=== PATIENT | male | born 1955 | race Caucasian/White ===

== ENCOUNTER → 2018-06-09 09:09 | Outpatient (CLI) | payer OTHER, SELFPAY ==
--- NOTE | 2018-06-09 09:15 | MRI_ITS ---
STUDY: MRI BRAIN WITH AND WITHOUT CONTRAST (ATTENTION INTERNAL AUDITORY CANALS - I.A.C.'s) REASON FOR EXAM: Male, 62 years old. lt tinnitus, dizzy, hearing loss. TECHNIQUE: Standardized multiplanar fat and water weighted pulse sequences were obtained. 10 ml of Gadavist contrast material was administered intravenously for the contrast portion of the examination. COMPARISON: None. FINDINGS: There is fluid signal at the left mastoid. Normal bilateral internal auditory canals. There is no demonstrated intracanalicular or cisternal vestibular schwannoma (acoustic neuroma). There is no enhancement of the bilateral VIIth or VIIIth cranial nerves. Normal bilateral cochlea, vestibules and semicircular canals. Normal size of the ventricles and extra-axial spaces for the patient's age. There are a limited number of small white matter hyperintensities, distributed throughout the deep white matter tracts of the cerebral hemispheres, consistent with mild chronic white matter ischemic changes. Normal bilateral basal ganglia. Normal thalami. Normal flow voids within the major intracranial circulation suggesting patency by spin echo criteria. Normal venous enhancement. There is no enhancing intra-axial or extra-axial abnormality. There is no extra-axial fluid accumulation. Normal sella turcica, pituitary gland, infundibular stalk, optic chiasm and hypothalamus. Normal tectal plate and pineal gland. Normal midbrain, alayna and medulla. Normal cerebellum. Normal basal cisterns. No demonstrated orbital abnormality, within the constraints of a routine brain study. Normal visualized paranasal sinuses. Normal calvarium and skull base. Normal visualized soft tissue structures. Normal visualized upper cervical spine. MRI/Brain W/WO Contrast IMPRESSION: There is no demonstrated intracanalicular or cisternal vestibular schwannoma (acoustic neuroma). Left mastoid disease. Electronically Signed: Shama Tsang MD at 8:54 EST Tel , Service support ,
[2018-06-09 09:50] LABS: CREATININE FINGERSTICK 1.2 mg/dL (0.70-1.30); EGFR FINGERSTICK > 60.0000 mL/min (>60)
== END ==
PROVIDERS: Family Provider Internal Medicine; PCP Internal Medicine; Referring Provider Otolaryngology Otolaryngology/Facial Plastic Surgery; Visit Provider Otolaryngology Otolaryngology/Facial Plastic Surgery
DX: H93.12 Tinnitus, left ear (principal)
CPT/HCPCS: 70553; A9585

== ENCOUNTER 2019-09-05 02:39 | Inpatient (IN) | payer MEDICARE, SELFPAY ==
[2019-09-05] VITALS (9 sets, daily range): BP systolic 130–193; BP diastolic 79–153; PULSE 79–99; RESP 17–20; TEMP 36.3–37.1; O2SAT 94–99; BMI 37.3; BMI 34.0
--- NOTE | 2019-09-05 02:42 | CT_ITS ---
STUDY: CT ABDOMEN AND PELVIS WITHOUT CONTRAST REASON FOR EXAM: Male, 63 years old patient with all over abdominal pain, nausea and vomiting for couple of hours. Past medical history of horseshoe kidney. RADIATION DOSAGE (If Supplied By Facility): CTDIvol = ( 19.27 ) mGy, DLP = ( 1049.33 ) mGycm TECHNIQUE: Transaxial images were obtained from the dome of the diaphragm to the symphysis pubis without oral contrast, and without intravenous contrast. Sagittal and coronal images were reconstructed. Individualized dose optimization techniques were used for this CT. COMPARISON: CT of the abdomen and pelvis dated January 28, 2017. FINDINGS: There is a curvilinear opacity of the left lung base that may represent pulmonary fibrosis is a similar appearance was present on the previous CT. The visualized portions of the heart are within normal limits. There are coronary artery vascular calcifications. There is decreased attenuation of the liver consistent with steatosis. There are multiple gallstones. Normal spleen. There is diffuse enlargement of the pancreas with patrice-pancreatic edema suggesting acute pancreatitis. Normal bilateral adrenal glands. Patient has a horseshoe kidney. There is a small parenchymal calcification measuring about 3 mm in size. There is no evidence for hydronephrosis, hydroureter or radiopaque ureteral calculus. There is a small hiatal hernia. There is no evidence for dilated bowel, ascites or pneumoperitoneum. Small bowel has a grossly normal appearance. The descending colon is not distended which gives the appearance of thickened leonard. Stool is visible within the ascending colon and transverse colon. The appendix is visualized and appears normal. There is abnormal heterogeneous increased but less attenuation within the central mesentery unchanged since the previous study. The abdominal aorta is mildly tortuous. Normal inferior vena cava. Normal retroperitoneum. Normal urinary bladder. There are prostatic calcifications. There is a small umbilical hernia containing fat. There are diffuse degenerative changes of the visualized spine. CT/Abdomen/Pelvis without Cont IMPRESSION: 1. CT finding suggests sequela of acute pancreatitis. 2. Cholelithiasis. 3. 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 4. Hepatic steatosis. Electronically Signed: Cristal Duff MD at 3:41 EDT , Service support ,
--- NOTE | 2019-09-05 02:45 | ED.DCSUM_ITS ---
History of Present Illness Chief Complaint: Abd Pain Narrative: Patient presenting due to abdominal pain, nausea, and vomiting. The patient has a past history of hernia surgery, hiatal hernia, and lysis of adhesions surgery. He states that he developed abdominal pain at 2300. This is associated with epigastric sharp pain with non-bloody, and non-bilious, and non feculent emesis. He states that there are no exacerbating or relieving factors. There have been no fevers or diarrhea associated with this. He states that he has been having some sweating with his vomiting. No chest pain. ROS is otherwise negative. Past Medical History - Allergies and Home Meds Allergies/Adverse Reactions: Allergies Acsarwv-Kqy-Yev Reductase Inhibitor Adverse Reaction (Verified 09/05/19 02:43) Other Primary Care Physician: Fidel Cronin MD [Primary Care Provider] - Past Medical History: - - CAT, HTN, DM, HL, BPH Surgical History: no surgical history Smoking Status: Former smoker - Family History Paternal Family History: Reports: Heart Disease - His father had [place] at age 55. Review of Systems All systems negative except as indicated General: Denies: Chills, Fever, Sweats Eyes: Denies: Visual changes - bilaterally, Diplopia ENT: Denies: Rhinorrhea, Sore throat Cardiovascular: Denies: Chest pain, Palpitations Respiratory: Denies: Dyspnea, Cough, Dyspnea on exertion Gastrointestinal: Reports: Abdominal pain, Nausea, Vomiting Genitourinary: Denies: Dysuria, Hematuria, Frequency Musculoskeletal: Denies: Back pain, Extremity Pain Skin: Denies: Rash, Wounds Neurological: Denies: Headache, Weakness, Numbness Physical Exam Vital Signs/Narrative: Vital Signs Temp Pulse Resp BP Pulse Ox 09/05/19 02:39 98.0 F 79 18 193/153 H 95 General: Well nourished, Well developed, Acute Distress Head: Normocephalic, Atraumatic Eyes: Perrl, EOMI ENT: Moist mucous membranes, No rhinorrhea Neck: Supple, Nontender Cardiovascular: Regular rate, Regular rhythm, No murmurs Respiratory: No distress, CTA bilaterally, Chest nontender Abdomen: Tender, Guarding, - - moderate distention. Negative for: Pulsatile mass Extremities: Nontender, No edema Skin: Diaphoresis Neurological: Alert, Oriented x3, Cranial nerves II-XII grossly intact, Normal Strength, Normal Sensation Psychological: Normal affect, Normal Mood Diagnostic/Tx/Re-eval Clinical Impression(s) from Imaging Studies Abdomen/Pelvis CT 09/05/19 02:42 IMPRESSION: 1. CT finding suggests sequela of acute pancreatitis. 2. Cholelithiasis. 3. 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 4. Hepatic steatosis. Electronically Signed: Cristal Duff MD at 3:41 EDT , Service support , Laboratory Data 09/05/19 09/05/19 09/05/19 02:50 02:50 02:50 WBC 22.6 H RBC 5.44 Hgb 15.7 Hct 47.9 MCV 88.1 MCH 28.9 MCHC 32.8 RDW Std Deviation 42.5 RDW Coeff of Mirian 13.3 Plt Count 235 MPV 10.7 Immature Gran % (Auto) 0.500 Neut % (Auto) 85.3 H Lymph % (Auto) 6.[address] [place] % (Auto) 6.9 Eos % (Auto) 0.1 Baso % (Auto) 0.3 Absolute Neuts (auto) 19.3 H Absolute Lymphs (auto) 1.56 Nucleated RBC % 0 Differential Comment Diff Path Review May foll Sodium 143 Potassium 3.7 Chloride 107 Carbon Dioxide 28.0 Anion Gap 8 BUN 17 Creatinine 1.11 Estim Creat Clear Calc 70.66 Est GFR (MDRD) Af Amer 85 Est GFR (MDRD) Non-Af 71 BUN/Creatinine Ratio 15.3 Glucose 180 H Lactic Acid 2.8 H* Calcium 8.5 Total Bilirubin 0.80 AST 109 H ALT 115 H Alkaline Phosphatase 91 Total Protein 7.0 Albumin 3.8 Globulin 3.2 Albumin/Globulin Ratio 1.2 Lipase 17256 H - Medical Decision Making Patient presented for evaluation secondary to abdominal pain. Differential considerations include gastric volvulus, perforated ulcer, bowel obstruction, pancreatitis, gallbladder disease, or other surgical pathology given the patient's abdominal rigidity pain and vomiting. Patient was given Dilaudid Zofran and fluids. He did have some improvement of his pain. CBC demonstrates leukocytosis, chemistry panel shows mild elevation of the patient's lactic acid and profound elevation of the patient's lipase into the 20,000 range. Patient has a modest bump in his transaminases, but does not seem to have elevation of bilirubin so I do not feel that this is a presentation of gallstone pancreatitis. CT abdomen and pelvis demonstrates pancreatitis with gallstones. I further question the patient about alcohol usage, he states that he really only drinks a glass of wine per night. Patient did report that within the last month he has been placed on metformin. He denies any recent viral illnesses. Patient was started on fluid resuscitation. I believe the patient requires admission this will be discussed with the hospitalist. ED Disposition - Plan for ED Patient: Disposition: Acute Care Hospital [facility] Diagnosis: Pancreatitis, acute
[2019-09-05] MEDS: HYDROmorphone 1 MG/ML Syringe IV ×10 (02:48→23:16)
[2019-09-05] MEDS: Ondansetron 4 MG/2 ML Vial IV ×4 (02:48→21:15)
[2019-09-05] MEDS: 0.9% Normal Saline 1,000 ML 1000 ML IV (02:49)
[2019-09-05 03:16] LABS: Absolute Lymphocyte Count 1.56 X10^3/uL (0.83-4.51); Absolute Neutrophil Count 19.3 X10^3/uL (2.0-7.7); Basophil# 0.07 X10^3/uL; Basophil% 0.3 % (0-1); Eosinophil# 0.02 X10^3/uL; Eosinophils% 0.1 % (0-5); Hematocrit 47.9 % (40-54); Hemoglobin 15.7 g/dL (13.0-16.5); Lymphocyte # 1.56 X10^3/ul (4.0); Lymphocyte % 6.9 % (19-41); Mean Corp Hgb Conc 32.8 g/dL (32-36); Mean Corpuscular Hgb 28.9 pg (27.0-32.0); Mean Corpuscular Volume 88.1 fL (80-94); Mean Platelet Vol. 10.7 fl (6.2-12.0); Monocyte# 1.57 X10^3/uL; Monocyte% 6.9 % (0-10); NRBC Flagged by Analyzer 0 % (0-5); Neutrophil % 85.3 % (47-70); POSITIVE DIFFERENTIAL YES; Platelet Count 235 K/mm3 (150-450); RBC Distribution Width CV 13.3 % (11.6-14.6); RBC Distribution Width SD 42.5 fl (35.1-43.9); Red Blood Count 5.44 M/mm3 (4.6-6.2); White Blood Count 22.6 K/mm3 (4.4-11.0)
[2019-09-05 03:22] LABS: Differential Indicated SCAN CRITERIA MET
[2019-09-05 03:26] LABS: ALB/GLOB Ratio 1.2 RATIO (0.9-2.4); AST(SGOT) 109 U/L (15-37); Alanine Aminotransfer ALT/SGPT 115 U/L (16-61); Albumin, Serum 3.8 g/dL (3.2-5.0); Alkaline Phosphatase 91 U/L (45-117); Anion Gap 8 (5-15); BUN 17 mg/dL (7-18); BUN/Creat Ratio 15.3 RATIO (10-20); Calcium,Total 8.5 mg/dL (8.5-10.1); Chloride 107 mmol/L (98-107); Creatinine, Serum 1.11 mg/dL (0.70-1.30); EST Glomerular Filtration Rate 71 mL/min (>60); Est Glom Filt Rate - Afr Amer 85 mL/min (>60); Estimated Creatinine Clearance 70.66 ml/min; Globulin 3.2 g/dL (2.2-4.2); Glucose 180 mg/dL (74-106); Lactic Acid 2.8 mmol/L (0.4-1.9); Potassium 3.7 mmol/L (3.5-5.1); Sodium Level 143 mmol/L (136-145)
[2019-09-05] MEDS: Lactated Ringers 1,000 ML 250 ML IV (04:11)
--- NOTE | 2019-09-05 04:34 | HP.PCM_ITS ---
Problem List (1) Pancreatitis, acute Status: Acute (2) Hyperlipidemia Status: Chronic (3) History of myocardial infarct at age less than 60 years Status: Chronic History of Present Illness Date of Admission: 09/05/19 Chief Complaint: abdominal pain The patient is a 63 year old male patient with a past medical history of coronary artery disease and hyperlipidemia presents the emergency room with acute onset of abdominal pain. The pain began last night approximately 11:00 PM and is 10/10 in nature described as epigastric or right upper quadrant pain. The pain is associated with nausea. The patient denies chest pain shortness of breath or fever or cough. CT scan reveals inflamed pancreas with multiple gallstones but no obstruction, and incidental finding of horseshoe kidney. Laboratory results are significant for lipase elevated at 20,190. The patient admits to drinking a glass of wine daily. At this time patient will be admitted to general medical floor and treated for pancreatitis Past Medical History Past Medical History (Chronic Problems): Chronic Problems Hyperlipidemia (Chronic) Coronary artery disease (Chronic) History of myocardial infarct at age less than 60 years (Chronic) Allergies Zuvkotk-Ckz-Yjc Reductase Inhibitor Adverse Reaction (Verified 09/05/19 02:43) Other Home Medications: Ambulatory Orders Medication Instructions Recorded Aspirin [Aspirin, Baby] 81 mg PO DAILY@0800 08/17/15 Metoprolol Tartrate [Lopressor 12.5 mg PO BID 08/17/15 (Beta Lory)] Omeprazole [Prilosec] 40 mg PO DAILY 08/17/15 Pitavastatin Calcium [Livalo] 1 mg PO DAILY 08/17/15 Tamsulosin HCl [Flomax] 0.4 mg PO DAILY 08/17/15 Fluticasone 0.05% [Flonase Nasal 2 spray NASAL DAILY 01/28/17 [place]] Loratadine/Pseudo 240/10 1 tablet PO DAILY 01/28/17 [Claritin-D 24 Hr] Nitroglycerin [Nitrostat] 0.3 mg SL PRN PRN 01/28/17 Clopidogrel Bisulfate [Plavix] 75 mg PO DAILY 09/05/19 Ezetimibe [Zetia] 10 mg PO DAILY 09/05/19 Metformin HCl 500 mg PO DAILY 09/05/19 Surgical History: no surgical history Psychiatric History: No pertinent psych hx Smoking Status: Former smoker - *Family History Paternal History Items: Heart Disease - His father had [place] at age 55. Review of Systems Constitutional: Denies: Chills, Fever, Weight Change HEENT: Denies: Head Aches, Sinus Congestion, Sinus Drainage Cardiovascular: Denies: Chest Pain, Palpitations Respiratory: Denies: Cough, Shortness of breath at rest, Sputum production Gastrointestinal: Reports: Abdominal Pain, Nausea. Denies: Vomiting Genitourinary: Denies: Dysuria Musculoskeletal: Denies: Joint Pain, Joint Tenderness Skin: Denies: Rash, Wounds Neurological: Denies: Numbness, Tingling, Focal weakness Psychiatric: Denies: Anxiety, Depression, Homicidal Ideations, Suicidal Ideations Hematologic/ Lymphatic: Denies: Easy Bruising, Easy Bleeding VTE Information - Inpt Only VTE Present on Admission: No VTE Mechan Device Prophylaxis: None VTE Pharm Prophylaxis ordered?: Yes Patient Problems: Active and Suspected Problems Pancreatitis, acute (Acute) - Physical Exam Vitals/I&O's: Vital Signs Temp Pulse Resp BP Pulse Ox 97.4 F L 89 18 141/98 H 99 09/05/19 04:31 09/05/19 04:31 09/05/19 04:31 09/05/19 04:31 09/05/19 04:31 Oxygen Delivery Method Room Air Weight: 267 lb 3.204 oz Body Mass Index (BMI) 37.3 General: Alert, Oriented x3, Cooperative HEENT: Atraumatic, Normocephalic Neck: Supple Lungs: Clear to auscultation, Normal air movement Cardiovascular: Regular rate, Regular Rhythm, Normal S1, Normal S2, No murmurs Abdomen: Bowel Sounds Present, Distended, Obese, Guarding Extremities: No edema, Capillary Refill Less than 3 Seconds Skin: No rashes Musculoskeletal: No Tenderness to Palpation of Joints or Extremities Neurological: Cranial nerves II-XII grossly intact Psych/Mental Status: Normal Affect, Appropriate Laboratory Results 09/05/19 02:50: WBC 22.6 H, RBC 5.44, Hgb 15.7, Hct 47.9, MCV 88.1, MCH 28.9, MCHC 32.8, RDW Std Deviation 42.5, RDW Coeff of Mirian 13.3, Plt Count 235, MPV 1 0.7, Immature Gran % (Auto) 0.500, Neut % (Auto) 85.3 H, Lymph % (Auto) 6.9 L, [place] % (Auto) 6.9, Eos % (Auto) 0.1, Baso % (Auto) 0.3, Absolute Neuts (auto) 19.3 H, Absolute Lymphs (auto) 1.56, Nucleated RBC % 0, Differential Comment , Diff Path Review September09/05/19 02:50: Sodium 143, Potassium 3.7, Chloride 107, Carbon Dioxide 28.0, Anion Gap 8, BUN 17, Creatinine 1.11, Estim Creat Clear Calc 70.66, Est GFR (MDRD) Af Amer 85, Est GFR (MDRD) Non-Af 71, BUN/Creatinine Ratio 15.3, Glucose 180 H, Calcium 8.5, Total Bilirubin 0.80, AST 109 H, ALT 115 H, Alkaline Phosphatase 91, Total Protein 7.0, Albumin 3.8, Globulin 3.2, Albumin/Globulin Ratio 1.2, Lipase 37636 H 09/05/19 02:50: Lactic Acid 2.8 H* Current Medications Lactated Ringer's () 1,000 mls @ 250 mls/hr IV .Q4H ADELAIDA Assessment/Plan All Active Problems Pancreatitis, acute (Acute) Chest pain (Acute) Chronic Problems Hyperlipidemia (Chronic) Coronary artery disease (Chronic) History of myocardial infarct at age less than 60 years (Chronic) Plan 1. Acute pancreatitis?admit patient to general medical floor, make n.p.o., Dilaudid 1 mg IV every 2 hours as needed, IV normal saline at 125 cc/h, repeat lipase and CMP in 12 hours. We will add Zofran as needed for nausea 2. Hyperlipidemia?patient unable to take statins will hold p.o. medications at this time for pancreatitis. 3. DVT prophylaxis?low molecular weight heparin Inpatient E&M: [id number] Init Hosp L3
[2019-09-05] MEDS: 0.9% Normal Saline 1,000 ML 125 ML IV (05:17)
[2019-09-05 06:55] LABS: Reflex Lactate? Y
[2019-09-05 07:53] LABS: Lactic Acid 3.3 mmol/L (0.4-1.9)
--- NOTE | 2019-09-05 08:25 | US_ITS ---
STUDY: ABDOMINAL ULTRASOUND - RIGHT UPPER QUADRANT REASON FOR VISIT: Male, 63 years old abd pain -- abn ct TECHNIQUE: Ultrasound evaluation of the right upper quadrant was performed with real-time and static jacome-scale imaging. TECHNICAL QUALITY: Limited. Examination limited by bowel gas. COMPARISON: Comparison is made with prior CT scan of the abdomen and pelvis dated September 05, 2019 at 3:03 AM. FINDINGS: Liver: The liver measures 15.3 cm. There is increased echogenicity consistent with fatty infiltration. The bile ducts are within normal limits. There is hepatic color flow. The direction of portal flow is hepatopetal. There is no demonstrated mass lesion. Gallbladder: Normal distended gallbladder. The gallbladder wall measures 2.0 mm. There is a negative sonographic Rodriguez''s sign. There is no pericholecystic fluid. There are multiple echogenic structures within the gallbladder, consistent with multiple gallstones. Common Bile Duct (C.B.D.): The common bile duct measures 5.2 mm. Pancreas: There is nonvisualization of the pancreas due to overlying bowel gas. Right Kidney: Normal size of the right kidney. The right kidney measures 12.3 cm x 5.3 cm x 4.8 cm. Normal renal cortex. The right cortex measures 1.4 cm. There is no demonstrated renal mass or cyst. There is no right hydronephrosis. US/Abdomen Limited IMPRESSION: Fatty infiltration of the liver. Multiple gallstones. Electronically Signed: Balwinder Clemens, at 10:13 EDT , Service support ,
[2019-09-05] MEDS: 0.9% Saline Lock 10 ML Syringe IV ×2 (09:15→21:15)
[2019-09-05 09:26] LABS: Cholesterol 231 mg/dL (200); High Density Lipoprotein 37 mg/dL; Triglycerides 152 mg/dL; Very Low Density Lipoprotein 30 mg/dL (5-40)
--- NOTE | 2019-09-05 10:41 | PCM.PN.HOSP ---
<Vick Villalobos - Last Filed: 09/05/19 10:41> Patient Problems: Active and Suspected Problems Pancreatitis, acute (Acute) Reason for Visit: Abdominal pain Subjective: minimal improvement in abd pain. no n/v currently. No fever/chills. No cough/sob. Vitals/I&O's: Vital Signs Temp Pulse Resp BP Pulse Ox 97.9 F 90 17 135/81 H 96 09/05/19 05:00 09/05/19 05:00 09/05/19 05:00 09/05/19 05:00 09/05/19 07:50 Oxygen Delivery Method Room Air Weight: 244 lb 4.355 oz Body Mass Index (BMI) 34.0 Intake and Output for Last 24 Hours 09/03/19 09/04/19 09/05/19 23:59 23:59 23:59 Intake Total 1806.25 / 1806.25 Output Total 250 / 250 Balance 1556.25 / 1556.25 General: Alert, Oriented x3, Cooperative HEENT: Atraumatic, PERRLA, EOMI, Normocephalic Neck: Supple, No JVD, Negative Carotid Bruits Lungs: Clear to auscultation, Normal air movement Cardiovascular: Regular rate, No murmurs Abdomen: Soft, Hypoactive Bowel Sounds, Tender Extremities: No edema, Capillary Refill Less than 3 Seconds Skin: No rashes, No breakdown Musculoskeletal: No Tenderness to Palpation of Joints or Extremities Neurological: Cranial nerves II-XII grossly intact Psych/Mental Status: Normal Affect, Appropriate, Alert and oriented to time, place, person, mood and affect Laboratory Results 09/05/19 02:50: WBC 22.6 H, RBC 5.44, Hgb 15.7, Hct 47.9, MCV 88.1, MCH 28.9, MCHC 32.8, RDW Std Deviation 42.5, RDW Coeff of Mirian 13.3, Plt Count 235, MPV 10.7, Immature Gran % (Auto) 0.500, Neut % (Auto) 85.3 H, Lymph % (Auto) 6.9 L, [place] % (Auto) 6.9, Eos % (Auto) 0.1, Baso % (Auto) 0.3, Absolute Neuts (auto) 19.3 H, Absolute Lymphs (auto) 1.56, Nucleated RBC % 0, Differential Comment , Diff Path Review September foll 09/05/19 02:50: Sodium 143, Potassium 3.7, Chloride 107, Carbon Dioxide 28.0, Anion Gap 8, BUN 17, Creatinine 1.11, Estim Creat Clear Calc 70.66, Est GFR (MDRD) Af Amer 85, Est GFR (MDRD) Non-Af 71, BUN/Creatinine Ratio 15.3, Glucose 180 H, Calcium 8.5, Total Bilirubin 0.80, AST 109 H, ALT 115 H, Alkaline Phosphatase 91, Total Protein 7.0, Albumin 3.8, Globulin 3.2, Albumin/Globulin Ratio 1.2, Lipase 43693 H 09/05/19 02:50: Lactic Acid 2.8 H* 09/05/19 02:55: Triglycerides 152, Cholesterol 231 H, LDL Cholesterol 164 H, VLDL Cholesterol 30, HDL Cholesterol 37 L 09/05/19 07:04: Lactic Acid 3.3 H* Current Medications Dicyclomine HCl (Bentyl) 20 mg PO Q6H PRN PRN PRN Reason: abdominal discomfort Enoxaparin Sodium (Lovenox) 40 mg SC DAILY [facility] Folic Acid (Folic Acid) 1 mg PO DAILY@0800 [facility] Gabapentin (Neurontin) 300 mg PO Q8H PRN PRN PRN Reason: moderate to severe anxiety Hydromorphone HCl (Dilaudid Inj) 1 mg IV Q2H PRN PRN PRN Reason: Pain Score 4-10/10 Last Admin: 09/05/19 09:14 Dose: 1 mg Documented by: Hydroxyzine Pamoate (Vistaril Pamoate Capsule) 50 mg PO Q4H PRN PRN PRN Reason: mild anxiety Sodium Chloride () 1,000 mls @ 150 mls/hr IV .Q6H40M [facility] Last Infusion: 09/05/19 09:22 Dose: 0 mls/hr Documented by: Loperamide HCl (Imodium) 2 mg PO Q4H PRN PRN PRN Reason: LOOSE STOOLS Ondansetron HCl (Zofran) 4 mg IV Q8H PRN PRN PRN Reason: NAUSEA/VOMITING Last Admin: 09/05/19 09:14 Dose: 4 mg Documented by: Ondansetron HCl (Zofran) 8 mg PO Q8H PRN PRN PRN Reason: NAUSEA Sodium Chloride () 10 - 40 ml IV UD PRN PRN Reason: SALINE FLUSH Last Admin: 09/05/19 09:15 Dose: 10 ml Documented by: Thiamine HCl (Vitamin B1) 100 mg PO DAILYCM [facility]LAIDA STROKE Vital Signs/Narrative: Vital Signs Pulse Ox 09/05/19 07:50 96 Medical Necessity - Tobacco Use Smoking Status: Former smoker Assessment/Plan All Active Problems Pancreatitis, acute (Acute) Chest pain (Acute) 1. Acute recurrent pancreatitis - likely 2/2 cholelithiasis, after pancreatitis improves, plan is for GB out th/wed. Dr. Bear following. CT c/w pancreatitis, markedly elevated lipase and WBCs, lactate. No fever. Recheck in AM. Continue NPO and supportive care. This is his third episodes. -Lipid panel shows Trigs 152, LDL 164, HDL 37. -Abd US shows multiple Gallstones. -likely ok to go back on statin/zetia at mo as this episode is related to gallstones. -pt drinks 1 glass wine daily 2. CAD - prior stent. asa/plavix 3. GERD - continue ppi via iv. 4. HLD - statin/zetia held. 5. DMt2 - metformin held. SSI 6. BPH - flomax held DVT ppx: lovenox This patient was seen by Vick Villalobos PA-C under the supervision of Dr. Jessica <Cornelio Jessica - Last Filed: 09/05/19 11:44> Reason for Visit: Acute pancreatitis Subjective: Patient admitted with abdominal pain, started in epigastrium, insidious onset, spread to whole abdomen, severe intensity 10/10 associated with nausea but no vomiting. No fever or chills. No URI symptoms. Patient had similar abdominal pain, started in epigastrium about 2 episodes in the past first 1 [address] abdomen was done reported as mesenteric lymphadenitis on second episode in 2019 for which she was admitted in [place]. As per the patient, this time it is the most severe pain. Denies hematemesis, melena or hematochezia. No change in bowel movement. Last bowel movement was yesterday No new lower urinary tract symptoms. Vitals/I&O's: Vital Signs Temp Pulse Resp BP Pulse Ox 97.9 F 90 17 135/81 H 96 09/05/19 05:00 09/05/19 05:00 09/05/19 05:00 09/05/19 05:00 09/05/19 07:50 Oxygen Delivery Method Room Air Weight: 244 lb 4.355 oz Body Mass Index (BMI) 34.0 Intake and Output for Last 24 Hours 09/03/19 09/04/19 09/05/19 23:59 23:59 23:59 Intake Total 1806.25 / 1806.25 Output Total 250 / 250 Balance 1556.25 / 1556.25 General: Alert, Oriented x3, Cooperative HEENT: Atraumatic, PERRLA, EOMI, Normocephalic Neck: Supple, No JVD, Negative Carotid Bruits Lungs: Clear to auscultation, No rhonchi, No wheeze, No rales, Diminished Cardiovascular: Regular rate, Regular Rhythm, Normal S1, Normal S2, No murmurs Abdomen: Bowel Sounds Present, Soft, Hypoactive Bowel Sounds, Guarding, Tender - Exquisite tenderness present in the epigastrium. No hepatomegaly. Gallbladder not palpable. Guarding present over epigastrium but no rigidity. Extremities: No edema, Capillary Refill Less than 3 Seconds Skin: No rashes, No breakdown Musculoskeletal: No Tenderness to Palpation of Joints or Extremities Neurological: Cranial nerves II-XII grossly intact, Deep Tendon Reflexes 2+/4 and Symmetrical, Neuro grossly intact Psych/Mental Status: Normal Affect, Appropriate Laboratory Results 09/05/19 02:50: WBC 22.6 H, RBC 5.44, Hgb 15.7, Hct 47.9, MCV 88.1, MCH 28.9, MCHC 32.8, RDW Std Deviation 42.5, RDW Coeff of Mirian 13.3, Plt Count 235, MPV 10.7, Immature Gran % (Auto) 0.500, Neut % (Auto) 85.3 H, Lymph % (Auto) 6.9 L, [place] % (Auto) 6.9, Eos % (Auto) 0.1, Baso % (Auto) 0.3, Absolute Neuts (auto) 19.3 H, Absolute Lymphs (auto) 1.56, Nucleated RBC % 0, Differential Comment , Diff Path Review Reviewed 09/05/19 02:50: Sodium 143, Potassium 3.7, Chloride 107, Carbon Dioxide 28.0, Anion Gap 8, BUN 17, Creatinine 1.11, Estim Creat Clear Calc 70.66, Est GFR (MDRD) Af Amer 85, Est GFR (MDRD) Non-Af 71, BUN/Creatinine Ratio 15.3, Glucose 180 H, Calcium 8.5, Total Bilirubin 0.80, AST 109 H, ALT 115 H, Alkaline Phosphatase 91, Total Protein 7.0, Albumin 3.8, Globulin 3.2, Albumin/Globulin Ratio 1.2, Lipase 79205 H 09/05/19 02:50: Lactic Acid 2.8 H* 09/05/19 02:55: Triglycerides 152, Cholesterol 231 H, LDL Cholesterol 164 H, VLDL Cholesterol 30, HDL Cholesterol 37 L 09/05/19 07:04: Lactic Acid 3.3 H* Current Medications Dextrose (D50w Syringe) 0 gm IV X1 PRN; Protocol PRN Reason: Hypoglycemia Enoxaparin Sodium (Lovenox) 40 mg SC DAILY [facility] Glucagon () 1 mg IM .X1 PRN PRN Reason: Hypoglycemia Hydromorphone HCl (Dilaudid Inj) 1 mg IV Q2H PRN PRN PRN Reason: Pain Score 4-10/10 Last Admin: 09/05/19 09:14 Dose: 1 mg Documented by: Sodium Chloride () 1,000 mls @ 150 mls/hr IV .Q6H40M [facility] Last Infusion: 09/05/19 09:22 Dose: 0 mls/hr Documented by: Pantoprazole Sodium 40 mg/ (Sodium Chloride) 110 mls @ 330 mls/hr IV Q12 [facility]LAIDA Insulin Human Lispro (Humalog Kwikpen (Bkc)) 0 unit SC Q6 ADELAIDA; Protocol Ondansetron HCl (Zofran) 4 mg IV Q6H PRN PRN PRN Reason: NAUSEA/VOMITING Sodium Chloride () 10 - 40 ml IV UD PRN PRN Reason: SALINE FLUSH Last Admin: 09/05/19 09:15 Dose: 10 ml Documented by: STROKE Vital Signs/Narrative: Vital Signs Pulse Ox 09/05/19 07:50 96 Assessment/Plan This patient was seen in conjunction with Vick CASTAÑEDA. I have independently interviewed and examined the patient and reviewed pertinent history, examination findings, laboratory and plan of management. I have reviewed the note and agree with the documented findings with the few additional points. In brief, patient is 63 gentleman admitted for third episode of abdominal pain in the last 3 years. This time clinical and biochemical evidence of acute pancreatitis. Leukocytosis 22,000. Lipase 20,000, ALT and AST elevated in 100s. Total bili normal. Albumin 3.8. Lactic acid elevated. Calcium 8.5. CT abdomen without oral and IV contrast shows peripancreatic edema suggesting acute pancreatitis. Normal spleen with multiple gallstones. Fatty liver. Right upper quadrant sonogram shows which shows multiple gallstones. CBD 5.2 mm. No pericholecystic fluid. GB wall 2.0 mm. General surgery was consulted. Discussed with Dr. Bear. Currently conservative treatment until pancreatitis is better and then lap raya probably on . IV fluids at 150 mill per hour. Intake and output. Sips and chips. Blood pressure is controlled. No fever. Other comorbidities include coronary artery disease, dyslipidemia: Home medications reconciliation done. Lipid profile TC 231, LDL 164, HDL 37. Currently patient home medications are on hold as patient is n.p.o. I have discussed my assessment with Vick CASTAÑEDA and orders have been reviewed. Laboratory Results 09/05/19 02:50: WBC 22.6 H, RBC 5.44, Hgb 15.7, Hct 47.9, MCV 88.1, MCH 28.9, MCHC 32.8, RDW Std Deviation 42.5, RDW Coeff of Mirian 13.3, Plt Count 235, MPV 10.7, Immature Gran % (Auto) 0.500, Neut % (Auto) 85.3 H, Lymph % (Auto) 6.9 L, [place] % (Auto) 6.9, Eos % (Auto) 0.1, Baso % (Auto) 0.3, Absolute Neuts (auto) 19.3 H, Absolute Lymphs (auto) 1.56, Nucleated RBC % 0, Differential Comment , Diff Path Review Reviewed 09/05/19 02:50: Sodium 143, Potassium 3.7, Chloride 107, Carbon Dioxide 28.0, Anion Gap 8, BUN 17, Creatinine 1.11, Estim Creat Clear Calc 70.66, Est GFR (MDRD) Af Amer 85, Est GFR (MDRD) Non-Af 71, BUN/Creatinine Ratio 15.3, Glucose 180 H, Calcium 8.5, Total Bilirubin 0.80, AST 109 H, ALT 115 H, Alkaline Phosphatase 91, Total Protein 7.0, Albumin 3.8, Globulin 3.2, Albumin/Globulin Ratio 1.2, Lipase 55694 H 09/05/19 02:50: Lactic Acid 2.8 H* 09/05/19 02:55: Triglycerides 152, Cholesterol 231 H, LDL Cholesterol 164 H, VLDL Cholesterol 30, HDL Cholesterol 37 L 09/05/19 07:04: Lactic Acid 3.3 H* Clinical Impression(s) from Imaging Studies Abdomen/Pelvis CT 09/05/19 02:42 IMPRESSION: 1. CT finding suggests sequela of acute pancreatitis. 2. Cholelithiasis. 3. 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 4. Hepatic steatosis. Abdomen Ultrasound 09/05/19 08:25 IMPRESSION: Fatty infiltration of the liver. Multiple gallstones.
[2019-09-05 10:46] LABS: Pathologist Review Reviewed
--- NOTE | 2019-09-05 11:06 | CASEMGMT ---
ELIANA HAMMOND assessment: Face to Face with patient for initial transition planning/care coordination assessment. ELIANA HAMMOND introduced self and role at [facility], pt voices understanding and consents to assessment at this time. Pt is sitting up in chair in pain at this time and pt states just had pain meds about 0900. Pt is A/Ox4 at this time and answers all questions appropriately at this time. Care providers, pharmacy, and demographics verified at this time. 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 Pt states that his , Savana Gudino, is HPOA. LNOK: Savana Gudino, Living Arrangements: Pt states lives with in 1 story home with basement and pt states no concerns at home at this time. Pt states is independent with ADL's. Transportation: Pt states drives self and states no transportation concerns at this time. DME/HHC: Pt states has a cpap thru [employer] and states no need for any further DME at this time. Pt states no hx of HHC or SNF in the past. Pt states no concerns with going home at time of discharge. Pt states is retired. Pt states does not smoke but does drink a glass of wine daily. Pt states no further concerns/needs at this time. CM to follow for any further discharge planning/needs. Advised pt to ask for CM if any further questions/concerns/needs arise, voices understanding. Pt Goal: Home Plan[place] ELIANA HAMMOND
[2019-09-05] MEDS: HYDROmorphone 0.5 MG/0.5 ML SYRINGE IV (11:42)
[2019-09-05] MEDS: Enoxaparin 40 MG/0.4 ML Syringe SC (11:42)
[2019-09-05 12:01] LABS: Bedside Glucose 161 mg/dL (70-110)
[2019-09-05 12:18] LABS: Absolute Lymphocyte Count 0.67 X10^3/uL (0.83-4.51); Absolute Neutrophil Count 16.9 X10^3/uL (2.0-7.7); Basophil# 0.04 X10^3/uL; Basophil% 0.2 % (0-1); Eosinophil# 0.03 X10^3/uL; Eosinophils% 0.2 % (0-5); Hematocrit 49.5 % (40-54); Hemoglobin 15.8 g/dL (13.0-16.5); Lymphocyte # 0.67 X10^3/ul (4.0); Lymphocyte % 3.6 % (19-41); Mean Corp Hgb Conc 31.9 g/dL (32-36); Mean Corpuscular Hgb 28.3 pg (27.0-32.0); Mean Corpuscular Volume 88.6 fL (80-94); Mean Platelet Vol. 10.3 fl (6.2-12.0); Monocyte# 0.87 X10^3/uL; Monocyte% 4.7 % (0-10); NRBC Flagged by Analyzer 0 % (0-5); Neutrophil # 16.88 X10^3/uL (2.7-7.7); Neutrophil % 90.7 % (47-70); POSITIVE MORPHOLOGY YES; Platelet Count 228 K/mm3 (150-450); RBC Distribution Width CV 13.3 % (11.6-14.6); Red Blood Count 5.59 M/mm3 (4.6-6.2); White Blood Count 18.6 K/mm3 (4.4-11.0)
[2019-09-05 12:28] LABS: Differential Indicated SCAN CRITERIA MET
[2019-09-05 12:41] LABS: Differential Comment SCANNED
--- NOTE | 2019-09-05 13:20 | PCM.CONS.GEN ---
Problem List (1) Pancreatitis, acute Status: Acute Qualifiers: Pancreatitis type: biliary Acute pancreatitis complication: no infection or necrosis Qualified Code(s): K85.10 - Biliary acute pancreatitis without necrosis or infection Reason for Consult Date of Consultation: 09/05/19 History of Present Illness: he patient is a 63 year old male patient with a past medical history of coronary artery disease and hyperlipidemia presents the emergency room with acute onset of abdominal pain. The pain began last night approximately 11:00 PM and is 10/10 in nature described as epigastric or right upper quadrant pain. The pain is associated with nausea. The patient denies chest pain shortness of breath or fever or cough. CT scan reveals inflamed pancreas with multiple gallstones but no obstruction, and incidental finding of horseshoe kidney. Laboratory results are significant for lipase elevated at 20,190. The patient admits to drinking a glass of wine daily. Patient underwent a gallbladder ultrasound which showed: Gallbladder: Normal distended gallbladder. The gallbladder wall measures 2.0 mm. There is a negative sonographic Rodriguez''s sign. There is no pericholecystic fluid. There are multiple echogenic structures within the gallbladder, consistent with multiple gallstones. Common Bile Duct (C.B.D.): The common bile duct measures 5.2 mm. Patient has had 2 other episodes of epigastric abdominal discomfort but no diagnosis of gallstone pancreatitis at those times. In addition in the early he underwent a exploratory laparoscopy for possible hernia on the right lower quadrant which turned out to be adhesions in the right lower quadrant. He did not undergo any hernia surgery nor did they remove his appendix at that time. Past Medical History Past Medical History (Chronic Problems): Chronic Problems Hyperlipidemia (Chronic) Coronary artery disease (Chronic) History of myocardial infarct at age less than 60 years (Chronic) Allergies Pyizygd-Pne-Mvp Reductase Inhibitor Adverse Reaction (Verified 09/05/19 02:43) Other Home Medications: Ambulatory Orders Medication Instructions Recorded Aspirin [Aspirin, Baby] 81 mg PO DAILY@0800 08/17/15 Metoprolol Tartrate [Lopressor 12.5 mg PO BID 08/17/15 (Beta Lory)] Omeprazole [Prilosec] 40 mg PO DAILY 08/17/15 Pitavastatin Calcium [Livalo] 1 mg PO DAILY 08/17/15 Tamsulosin HCl [Flomax] 0.4 mg PO DAILY 08/17/15 Fluticasone 0.05% [Flonase Nasal 2 spray NASAL DAILY 01/28/17 [place]] Loratadine/Pseudo 240/10 1 tablet PO DAILY 01/28/17 [Claritin-D 24 Hr] Nitroglycerin [Nitrostat] 0.3 mg SL PRN PRN 01/28/17 Clopidogrel Bisulfate [Plavix] 75 mg PO DAILY 09/05/19 Ezetimibe [Zetia] 10 mg PO DAILY 09/05/19 Metformin HCl 500 mg PO DAILY 09/05/19 Surgical History: no surgical history Psychiatric History: No pertinent psych hx Smoking Status: Former smoker - *Family History Paternal History Items: Heart Disease - His father had GA at age 55. Review of Systems Constitutional: Reports: Anorexia Cardiovascular: Denies: Chest Pain, Chest Pressure, Chest Tightness, Palpitations Respiratory: Denies: Cough, Hemoptysis, Shortness of breath at rest, Shortness of breath upon exertion, Wheezing Gastrointestinal: Reports: Abdominal Pain Genitourinary: Denies: Dysuria, Frequency, Hematuria, Urgency - Physical Exam Vitals/I&O's: Vital Signs Temp Pulse Resp BP Pulse Ox 98.0 F 83 18 157/95 H 94 09/05/19 11:00 09/05/19 11:00 09/05/19 11:00 09/05/19 11:00 09/05/19 11:00 Oxygen Delivery Method Room Air Weight: 244 lb 4.355 oz Body Mass Index (BMI) 34.0 Intake and Output for Last 24 Hours 09/03/19 09/04/19 09/05/19 23:59 23:59 23:59 Intake Total 1916.25 / 1916.25 Output Total 250 / 250 Balance 1666.25 / 1666.25 General: Alert, Oriented x3 Lungs: Clear to auscultation Cardiovascular: Regular rate, Regular Rhythm, No murmurs Abdomen: Soft, Tender - Tenderness is in the epigastric and the right upper quadrant area. Laboratory Results 09/05/19 02:50: WBC 22.6 H, RBC 5.44, Hgb 15.7, Hct 47.9, MCV 88.1, MCH 28.9, MCHC 32.8, RDW Std Deviation 42.5, RDW Coeff of Mirian 13.3, Plt Count 235, MPV 10.7, Immature Gran % (Auto) 0.500, Neut % (Auto) 85.3 H, Lymph % (Auto) 6.9 L, [place] % (Auto) 6.9, Eos % (Auto) 0.1, Baso % (Auto) 0.3, Absolute Neuts (auto) 19.3 H, Absolute Lymphs (auto) 1.56, Nucleated RBC % 0, Differential Comment , Diff Path Review Reviewed 09/05/19 02:50: Sodium 143, Potassium 3.7, Chloride 107, Carbon Dioxide 28.0, Anion Gap 8, BUN 17, Creatinine 1.11, Estim Creat Clear Calc 70.66, Est GFR (MDRD) Af Amer 85, Est GFR (MDRD) Non-Af 71, BUN/Creatinine Ratio 15.3, Glucose 180 H, Calcium 8.5, Total Bilirubin 0.80, AST 109 H, ALT 115 H, Alkaline Phosphatase 91, Total Protein 7.0, Albumin 3.8, Globulin 3.2, Albumin/Globulin Ratio 1.2, Lipase 66347 H 09/05/19 02:50: Lactic Acid 2.8 H* 09/05/19 02:55: Triglycerides 152, Cholesterol 231 H, LDL Cholesterol 164 H, VLDL Cholesterol 30, HDL Cholesterol 37 L 09/05/19 07:04: Lactic Acid 3.3 H* 09/05/19 11:46: POC Glucose 161 H 09/05/19 12:03: WBC 18.6 H, RBC 5.59, Hgb 15.8, Hct 49.5, MCV 88.6, MCH 28.3, MCHC 31.9 L, RDW Std Deviation 43.0, RDW Coeff of Mirian 13.3, Plt Count 228, MPV 10.3, Immature Gran % (Auto) 0.600, Neut % (Auto) 90.7 H, Lymph % (Auto) 3.6 L, [place] % (Auto) 4.7, Eos % (Auto) 0.2, Baso % (Auto) 0.2, Absolute Neuts (auto) 16.9 H, Absolute Lymphs (auto) 0.67 L, Nucleated RBC % 0, Differential Comment SCANNED 09/05/19 12:03: Sodium Pending, Potassium Pending, Chloride Pending, Carbon Dioxide Pending, Anion Gap Pending, BUN Pending, Creatinine Pending, Est GFR (MDRD) Af Amer Pending, Est GFR (MDRD) Non-Af Pending, BUN/Creatinine Ratio Pending, Glucose Pending, Calcium Pending, Total Bilirubin Pending, AST Pending, ALT Pending, Alkaline Phosphatase Pending, Total Protein Pending, Albumin Pending, Lipase Pending Current Medications Dextrose (D50w Syringe) 0 gm IV X1 PRN; Protocol PRN Reason: Hypoglycemia Enoxaparin Sodium (Lovenox) 40 mg SC DAILY [facility] Last Admin: 09/05/19 11:42 Dose: 40 mg Documented by: Glucagon () 1 mg IM .X1 PRN PRN Reason: Hypoglycemia Hydromorphone HCl (Dilaudid Inj) 1 mg IV Q2H PRN PRN PRN Reason: Pain Score 4-10/10 Last Admin: 09/05/19 12:32 Dose: 1 mg Documented by: Sodium Chloride () 1,000 mls @ 150 mls/hr IV .Q6H40M [facility] Last Infusion: 09/05/19 10:00 Dose: 150 mls/hr Documented by: Pantoprazole Sodium 40 mg/ (Sodium Chloride) 110 mls @ 330 mls/hr IV Q12 A[facility]LAIDA Last Infusion: 09/05/19 12:02 Dose: Infused Documented by: Insulin Human Lispro (Humalog Kwikpen (Bkc)) 0 unit SC Q6 ADELAIDA; Protocol Last Admin: 09/05/19 11:52 Dose: Not Given Documented by: Metoprolol Tartrate (Lopressor (Beta Lory)) 12.5 mg PO BID [facility] Ondansetron HCl (Zofran) 4 mg IV Q6H PRN PRN PRN Reason: NAUSEA/VOMITING Sodium Chloride () 10 - 40 ml IV UD PRN PRN Reason: SALINE FLUSH Last Admin: 09/05/19 09:15 Dose: 10 ml Documented by: Tamsulosin HCl (Flomax) 0.4 mg PO DAILY [facility] Assessment/Plan All Active Problems Pancreatitis, acute (Acute) Chest pain (Acute) This point we are going to treat him medically await to see improvement in both his clinical presentation as well as his lipase. I think that it would be important that during this admission he undergo a laparoscopic cholecystectomy to have his gallbladder removed so that the next time he were to develop pancreatitis it will not be secondary to gallstones. I have explained the procedure to him and understandable terms. He understands that he does have a slightly increased risk of surgery secondary to the numerous episodes that he has had in the past. All questions asked were answered he agrees to proceed. Essential Procedure Criteria Procedure Essential: Yes Criteria Note: On 08/15/2019 the [facility] ([facility]) Public Order signed by [facility] Director Ania Ortez M.D., regarding the Management of Non-Essential Surgeries and Procedures for the purpose of preserving Personal Protective Equipment (PPE) and critical hospital capacity and resources within [place] went into effect as of 08/16/2019 at 5:00PM. According to the [facility] Public Order: This action will remain in full force and effect until the State of Emergency declared by the Governor no longer exists or the Director of the [facility] rescinds or modifies this Order.. This [facility] order stated all non-essential or elective surgeries and procedures that utilize PPE should be delayed unless there is undue risk to the current or future health of a patient. After reviewing the aforementioned [facility] Public Order and the patients clinical case, I have determined that the scheduled procedure meets the criteria to go forward. Risk to Patient if Procedure Delayed: Threat of permanent dysfunction of an extremity or organ system Office Visits / Consults: [id number] IP Consult L4
[2019-09-05 13:24] LABS: ALB/GLOB Ratio 1.1 RATIO (0.9-2.4); AST(SGOT) 58 U/L (15-37); Alanine Aminotransfer ALT/SGPT 116 U/L (16-61); Albumin, Serum 3.7 g/dL (3.2-5.0); Alkaline Phosphatase 89 U/L (45-117); Anion Gap 7 (5-15); BUN 16 mg/dL (7-18); BUN/Creat Ratio 14.8 RATIO (10-20); Calcium,Total 8.1 mg/dL (8.5-10.1); Chloride 106 mmol/L (98-107); Creatinine, Serum 1.08 mg/dL (0.70-1.30); EST Glomerular Filtration Rate 73 mL/min (>60); Est Glom Filt Rate - Afr Amer 88 mL/min (>60); Estimated Creatinine Clearance 72.63 ml/min; Globulin 3.4 g/dL (2.2-4.2); Glucose 163 mg/dL (74-106); Lipase 5186 U/L (73-393); Potassium 4.6 mmol/L (3.5-5.1); Protein, Total 7.1 g/dL (6.4-8.2); Sodium Level 139 mmol/L (136-145)
[2019-09-05] MEDS: 0.9% Normal Saline 1,000 ML 150 ML IV ×2 (14:07→20:04)
[2019-09-05 16:50] LABS: Bedside Glucose 139 mg/dL (70-110)
[2019-09-05 23:10] LABS: Bedside Glucose 134 mg/dL (70-110)
[2019-09-06] VITALS (7 sets, daily range): BP systolic 125–158; BP diastolic 72–97; PULSE 95–107; RESP 18; TEMP 36.9–37.3; O2SAT 92–95
[2019-09-06] MEDS: HYDROmorphone 1 MG/ML Syringe IV ×6 (03:04→19:59)
[2019-09-06] MEDS: 0.9% Normal Saline 1,000 ML 150 ML IV ×2 (03:04→08:51)
[2019-09-06] MEDS: Ondansetron 4 MG/2 ML Vial IV ×3 (03:15→20:03)
[2019-09-06 05:21] LABS: Absolute Lymphocyte Count 0.87 X10^3/uL (0.83-4.51); Absolute Neutrophil Count 23.3 X10^3/uL (2.0-7.7); Basophil# 0.04 X10^3/uL; Basophil% 0.2 % (0-1); Eosinophil# 0.05 X10^3/uL; Eosinophils% 0.2 % (0-5); Hematocrit 49.2 % (40-54); Hemoglobin 15.9 g/dL (13.0-16.5); Lymphocyte # 0.87 X10^3/ul (4.0); Lymphocyte % 3.3 % (19-41); Mean Corp Hgb Conc 32.3 g/dL (32-36); Mean Corpuscular Hgb 28.4 pg (27.0-32.0); Mean Corpuscular Volume 87.9 fL (80-94); Mean Platelet Vol. 10.5 fl (6.2-12.0); Monocyte% 6.1 % (0-10); NRBC Flagged by Analyzer 0 % (0-5); Neutrophil # 23.34 X10^3/uL (2.7-7.7); Neutrophil % 89.3 % (47-70); POSITIVE DIFFERENTIAL YES; POSITIVE MORPHOLOGY YES; Platelet Count 223 K/mm3 (150-450); RBC Distribution Width CV 13.8 % (11.6-14.6); RBC Distribution Width SD 44.1 fl (35.1-43.9); White Blood Count 26.1 K/mm3 (4.4-11.0)
[2019-09-06 05:55] LABS: Differential Indicated SCAN CRITERIA MET
[2019-09-06 06:02] LABS: AST(SGOT) 33 U/L (15-37); Alanine Aminotransfer ALT/SGPT 76 U/L (16-61); Albumin, Serum 3.4 g/dL (3.2-5.0); Alkaline Phosphatase 72 U/L (45-117); Anion Gap 6 (5-15); BUN 14 mg/dL (7-18); BUN/Creat Ratio 13.6 RATIO (10-20); Calcium,Total 7.9 mg/dL (8.5-10.1); Chloride 112 mmol/L (98-107); Creatinine, Serum 1.03 mg/dL (0.70-1.30); EST Glomerular Filtration Rate 77 mL/min (>60); Est Glom Filt Rate - Afr Amer 93 mL/min (>60); Estimated Creatinine Clearance 76.15 ml/min; Globulin 3.3 g/dL (2.2-4.2); Glucose 153 mg/dL (74-106); Lipase 1770 U/L (73-393); Potassium 4.3 mmol/L (3.5-5.1); Protein, Total 6.7 g/dL (6.4-8.2); Sodium Level 141 mmol/L (136-145)
[2019-09-06 06:41] LABS: Bedside Glucose 141 mg/dL (70-110)
[2019-09-06 06:47] LABS: Differential Comment SCANNED
[2019-09-06] MEDS: Enoxaparin 40 MG/0.4 ML Syringe SC (08:50)
[2019-09-06] MEDS: Metoprolol Tartrate 25 MG Tablet 12.5 MG PO ×2 (08:50→21:44)
[2019-09-06] MEDS: Tamsulosin HCl 0.4 MG Capsule PO (08:50)
--- NOTE | 2019-09-06 10:38 | PCM.PN.SRG ---
Patient Problems: Active and Suspected Problems Pancreatitis, acute (Acute) Subjective: Patient states that he does feel better this morning. No nausea or vomiting Objective: Abdomen still remains tender in the epigastric area. - Physical Exam Vitals/I&O's: Vital Signs Temp Pulse Resp BP Pulse Ox 98.6 F 103 H 18 158/94 H 92 09/06/19 03:02 09/06/19 08:50 09/06/19 03:02 09/06/19 03:02 09/06/19 07:55 Oxygen Delivery Method Room Air Weight: 244 lb 4.355 oz Body Mass Index (BMI) 34.0 Intake and Output for Last 24 Hours 09/04/19 09/05/19 09/06/19 23:59 23:59 23:59 Intake Total 3773.33 / 3773.33 1512.5 / 1512.5 Output Total 250 / 250 600 / 600 Balance 3523.33 / 3523.33 912.5 / 912.5 Laboratory Results 09/05/19 02:50: Diff Path Review Reviewed 09/05/19 11:46: POC Glucose 161 H 09/05/19 12:03: WBC 18.6 H, RBC 5.59, Hgb 15.8, Hct 49.5, MCV 88.6, MCH 28.3, MCHC 31.9 L, RDW Std Deviation 43.0, RDW Coeff of Mirian 13.3, Plt Count 228, MPV 10.3, Immature Gran % (Auto) 0.600, Neut % (Auto) 90.7 H, Lymph % (Auto) 3.6 L, [place] % (Auto) 4.7, Eos % (Auto) 0.2, Baso % (Auto) 0.2, Absolute Neuts (auto) 16.9 H, Absolute Lymphs (auto) 0.67 L, Nucleated RBC % 0, Differential Comment SCANNED 09/05/19 12:03: Sodium 139, Potassium 4.6, Chloride 106, Carbon Dioxide 26.0, Anion Gap 7, BUN 16, Creatinine 1.08, Estim Creat Clear Calc 72.63, Est GFR (MDRD) Af Amer 88, Est GFR (MDRD) Non-Af 73, BUN/Creatinine Ratio 14.8, Glucose 163 H, Calcium 8.1 L, Total Bilirubin 0.60, AST 58 H, ALT 116 H, Alkaline Phosphatase 89, Total Protein 7.1, Albumin 3.7, Globulin 3.4, Albumin/Globulin Ratio 1.1, Lipase 5186 H 09/05/19 16:38: POC Glucose 139 H 09/05/19 22:34: POC Glucose 134 H 09/06/19 05:04: WBC 26.1 H, RBC 5.60, Hgb 15.9, Hct 49.2, MCV 87.9, MCH 28.4, MCHC 32.3, RDW Std Deviation 44.1 H, RDW Coeff of Mirian 13.8, Plt Count 223, MPV 10.5, Immature Gran % (Auto) 0.900, Neut % (Auto) 89.3 H, Lymph % (Auto) 3.3 L, [place] % (Auto) 6.1, Eos % (Auto) 0.2, Baso % (Auto) 0.2, Absolute Neuts (auto) 23.3 H, Absolute Lymphs (auto) 0.87, Nucleated RBC % 0, Differential Comment SCANNED, Diff Path Review September09/06/19 05:04: Sodium 141, Potassium 4.3, Chloride 112 H, Carbon Dioxide 23.0, Anion Gap 6, BUN 14, Creatinine 1.03, Estim Creat Clear Calc 76.15, Est GFR (MDRD) Af Amer 93, Est GFR (MDRD) Non-Af 77, BUN/Creatinine Ratio 13.6, Glucose 153 H, Calcium 7.9 L, Total Bilirubin 0.80, AST 33, ALT 76 H, Alkaline Phosphatase 72, Total Protein 6.7, Albumin 3.4, Globulin 3.3, Albumin/Globulin Ratio 1.0, Lipase 1770 H 09/06/19 06:12: POC Glucose 141 H Current Medications Dextrose (D50w Syringe) 0 gm IV X1 PRN; Protocol PRN Reason: Hypoglycemia Enoxaparin Sodium (Lovenox) 40 mg SC DAILY [facility] Last Admin: 09/06/19 08:50 Dose: 40 mg Documented by: Glucagon () 1 mg IM .X1 PRN PRN Reason: Hypoglycemia Hydromorphone HCl (Dilaudid Inj) 1 mg IV Q2H PRN PRN PRN Reason: Pain Score 4-10/10 Last Admin: 09/06/19 08:55 Dose: 1 mg Documented by: Sodium Chloride () 1,000 mls @ 100 mls/hr IV .Q10H [facility] Last Infusion: 09/06/19 08:55 Dose: 0 mls/hr Documented by: Pantoprazole Sodium 40 mg/ (Sodium Chloride) 110 mls @ 330 mls/hr IV Q12 [facility] Last Admin: 09/06/19 08:54 Dose: 330 mls/hr Documented by: Insulin Human Lispro (Humalog Kwikpen (Bkc)) 0 unit SC Q6 [facility]; Protocol Last Admin: 09/06/19 06:18 Dose: Not Given Documented by: Metoprolol Tartrate (Lopressor (Beta Lory)) 12.5 mg PO BID [facility] Last Admin: 09/06/19 08:50 Dose: 12.5 mg Documented by: Ondansetron HCl (Zofran) 4 mg IV Q6H PRN PRN PRN Reason: NAUSEA/VOMITING Last Admin: 09/06/19 03:15 Dose: 4 mg Documented by: Promethazine HCl (Phenergan) 12.5 mg IV Q6H PRN PRN PRN Reason: NAUSEA/VOMITING Sodium Chloride () 10 - 40 ml IV UD PRN PRN Reason: SALINE FLUSH Last Admin: 09/05/19 21:15 Dose: 10 ml Documented by: Tamsulosin HCl (Flomax) 0.4 mg PO DAILY [facility] Last Admin: 09/06/19 08:50 Dose: 0.4 mg Documented by: Medical Necessity - Tobacco Use Smoking Status: Former smoker Assessment/Plan All Active Problems Pancreatitis, acute (Acute) Chest pain (Acute) At this point still waiting for the lipase to return back to normal. I do not think this is going to be an acute process and he is can have to spend several days in the hospital for this to be accomplished. In addition his pain is still fairly significant I still think it would probably be sweeney for us to remove his gallbladder before he goes home but we will assess this on a daily basis. Inpatient E&M: 29529 [facility] L2
[2019-09-06 10:52] LABS: Pathologist Review Reviewed
--- NOTE | 2019-09-06 11:23 | PCM.PN.HOSP ---
<Vick Villalobos - Last Filed: 09/06/19 11:23> Patient Problems: Active and Suspected Problems Pancreatitis, acute (Acute) Reason for Visit: abd pain Subjective: pt doing better at the time of exam. abd pain improved to 4/10. some dry heaving overnight. No bowel movement. No fever/chills. No cough/sob. Vitals/I&O's: Vital Signs Temp Pulse Resp BP Pulse Ox 98.4 F 107 H 18 144/94 H 93 09/06/19 08:55 09/06/19 08:55 09/06/19 08:55 09/06/19 08:55 09/06/19 08:55 Oxygen Delivery Method Room Air Weight: 244 lb 4.355 oz Body Mass Index (BMI) 34.0 Intake and Output for Last 24 Hours 09/04/19 09/05/19 09/06/19 23:59 23:59 23:59 Intake Total 3773.33 / 3773.33 1622.5 / 1622.5 Output Total 250 / 250 600 / 600 Balance 3523.33 / 3523.33 1022.5 / 1022.5 General: Alert, Oriented x3, Cooperative HEENT: Atraumatic, PERRLA, EOMI, Normocephalic Neck: Supple, No JVD, Negative Carotid Bruits Lungs: Clear to auscultation, Normal air movement Cardiovascular: Regular rate, No murmurs Abdomen: Soft, Hypoactive Bowel Sounds, Tender Extremities: No edema, Capillary Refill Less than 3 Seconds Skin: No rashes, No breakdown Musculoskeletal: No Tenderness to Palpation of Joints or Extremities Neurological: Cranial nerves II-XII grossly intact Psych/Mental Status: Normal Affect, Appropriate, Alert and oriented to time, place, person, mood and affect Laboratory Results 09/05/19 11:46: POC Glucose 161 H 09/05/19 12:03: WBC 18.6 H, RBC 5.59, Hgb 15.8, Hct 49.5, MCV 88.6, MCH 28.3, MCHC 31.9 L, RDW Std Deviation 43.0, RDW Coeff of Mirian 13.3, Plt Count 228, MPV 10.3, Immature Gran % (Auto) 0.600, Neut % (Auto) 90.7 H, Lymph % (Auto) 3.6 L, [place] % (Auto) 4.7, Eos % (Auto) 0.2, Baso % (Auto) 0.2, Absolute Neuts (auto) 16.9 H, Absolute Lymphs (auto) 0.67 L, Nucleated RBC % 0, Differential Comment SCANNED 09/05/19 12:03: Sodium 139, Potassium 4.6, Chloride 106, Carbon Dioxide 26.0, Anion Gap 7, BUN 16, Creatinine 1.08, Estim Creat Clear Calc 72.63, Est GFR (MDRD) Af Amer 88, Est GFR (MDRD) Non-Af 73, BUN/Creatinine Ratio 14.8, Glucose 163 H, Calcium 8.1 L, Total Bilirubin 0.60, AST 58 H, ALT 116 H, Alkaline Phosphatase 89, Total Protein 7.1, Albumin 3.7, Globulin 3.4, Albumin/Globulin Ratio 1.1, Lipase 5186 H 09/05/19 16:38: POC Glucose 139 H 09/05/19 22:34: POC Glucose 134 H 09/06/19 05:04: WBC 26.1 H, RBC 5.60, Hgb 15.9, Hct 49.2, MCV 87.9, MCH 28.4, MCHC 32.3, RDW Std Deviation 44.1 H, RDW Coeff of Mirian 13.8, Plt Count 223, MPV 10.5, Immature Gran % (Auto) 0.900, Neut % (Auto) 89.3 H, Lymph % (Auto) 3.3 L, [place] % (Auto) 6.1, Eos % (Auto) 0.2, Baso % (Auto) 0.2, Absolute Neuts (auto) 23.3 H, Absolute Lymphs (auto) 0.87, Nucleated RBC % 0, Differential Comment SCANNED, Diff Path Review Reviewed 09/06/19 05:04: Sodium 141, Potassium 4.3, Chloride 112 H, Carbon Dioxide 23.0, Anion Gap 6, BUN 14, Creatinine 1.03, Estim Creat Clear Calc 76.15, Est GFR (MDRD) Af Amer 93, Est GFR (MDRD) Non-Af 77, BUN/Creatinine Ratio 13.6, Glucose 153 H, Calcium 7.9 L, Total Bilirubin 0.80, AST 33, ALT 76 H, Alkaline Phosphatase 72, Total Protein 6.7, Albumin 3.4, Globulin 3.3, Albumin/Globulin Ratio 1.0, Lipase 1770 H 09/06/19 06:12: POC Glucose 141 H Current Medications Dextrose (D50w Syringe) 0 gm IV X1 PRN; Protocol PRN Reason: Hypoglycemia Enoxaparin Sodium (Lovenox) 40 mg SC DAILY [facility] Last Admin: 09/06/19 08:50 Dose: 40 mg Documented by: Glucagon () 1 mg IM .X1 PRN PRN Reason: Hypoglycemia Hydromorphone HCl (Dilaudid Inj) 1 mg IV Q2H PRN PRN PRN Reason: Pain Score 4-10/10 Last Admin: 09/06/19 08:55 Dose: 1 mg Documented by: Sodium Chloride () 1,000 mls @ 100 mls/hr IV .Q10H [facility] Last Infusion: 09/06/19 09:14 Dose: 100 mls/hr Documented by: Pantoprazole Sodium 40 mg/ (Sodium Chloride) 110 mls @ 330 mls/hr IV Q12 [facility] Last Infusion: 09/06/19 09:14 Dose: Infused Documented by: Insulin Human Lispro (Humalog Kwikpen (Bkc)) 0 unit SC Q6 [facility]; Protocol Last Admin: 09/06/19 06:18 Dose: Not Given Documented by: Metoprolol Tartrate (Lopressor (Beta Lory)) 12.5 mg PO BID [facility] Last Admin: 09/06/19 08:50 Dose: 12.5 mg Documented by: Ondansetron HCl (Zofran) 4 mg IV Q6H PRN PRN PRN Reason: NAUSEA/VOMITING Last Admin: 09/06/19 03:15 Dose: 4 mg Documented by: Promethazine HCl (Phenergan) 12.5 mg IV Q6H PRN PRN PRN Reason: NAUSEA/VOMITING Sodium Chloride () 10 - 40 ml IV UD PRN PRN Reason: SALINE FLUSH Last Admin: 09/05/19 21:15 Dose: 10 ml Documented by: Tamsulosin HCl (Flomax) 0.4 mg PO DAILY [facility] Last Admin: 09/06/19 08:50 Dose: 0.4 mg Documented by: STROKE Vital Signs/Narrative: Vital Signs Temp Pulse Resp BP Pulse Ox 09/06/19 08:55 98.4 F 107 H 18 144/94 H 93 09/06/19 08:50 103 H 09/06/19 07:55 92 Medical Necessity - Tobacco Use Smoking Status: Former smoker Assessment/Plan All Active Problems Pancreatitis, acute (Acute) Chest pain (Acute) 1. Acute recurrent pancreatitis - likely 2/2 cholelithiasis, after pancreatitis improves, plan is for GB out thurs/fri. Dr. Bear following. Pt improving, lipase down. WBC up --> repeat in AM, no fever. 2. CAD - prior stent. asa/plavix 3. GERD - continue ppi via iv. 4. HLD - statin/zetia held. 5. DMt2 - metformin held. SSI 6. BPH - flomax held DVT ppx: lovenox This patient was seen by Vick Villalobos PA-C under the supervision of Dr. Jessica <Cornelio Jessica - Last Filed: 09/06/19 13:33> Reason for Visit: Severe acute pancreatitis probably gallstone pancreatitis with peripancreatic edema Objective: Patient still has abdominal pain about 5 to 6/10 although little better than yesterday. Patient pain is predominantly over epigastrium and right upper quadrant. No nausea or vomiting. Vitals/I&O's: Vital Signs Temp Pulse Resp BP Pulse Ox 98.4 F 107 H 18 144/94 H 93 09/06/19 08:55 09/06/19 08:55 09/06/19 08:55 09/06/19 08:55 09/06/19 08:55 Oxygen Delivery Method Room Air Weight: 244 lb 4.355 oz Body Mass Index (BMI) 34.0 Intake and Output for Last 24 Hours 09/04/19 09/05/19 09/06/19 23:59 23:59 23:59 Intake Total 3773.33 / 3773.33 1822.5 / 1822.5 Output Total 250 / 250 1100 / 1100 Balance 3523.33 / 3523.33 722.5 / 722.5 General: Alert, Oriented x3, Cooperative HEENT: Atraumatic, PERRLA, EOMI, Normocephalic Neck: Supple, No JVD, Negative Carotid Bruits Lungs: Clear to auscultation, No rhonchi, No wheeze, No rales, Diminished Cardiovascular: Regular rate, Regular Rhythm, Normal S1, Normal S2, No murmurs Abdomen: Bowel Sounds Present, Soft, Hypoactive Bowel Sounds, Tender - Tenderness present over right upper quadrant and epigastrium. Extremities: No edema, Capillary Refill Less than 3 Seconds Skin: No rashes, No breakdown Musculoskeletal: No Tenderness to Palpation of Joints or Extremities, Arthritic Changes Neurological: Cranial nerves II-XII grossly intact, Deep Tendon Reflexes 2+/4 and Symmetrical, Neuro grossly intact Psych/Mental Status: Normal Affect, Appropriate Laboratory Results 09/05/19 16:38: POC Glucose 139 H 09/05/19 22:34: POC Glucose 134 H 09/06/19 05:04: WBC 26.1 H, RBC 5.60, Hgb 15.9, Hct 49.2, MCV 87.9, MCH 28.4, MCHC 32.3, RDW Std Deviation 44.1 H, RDW Coeff of Mirian 13.8, Plt Count 223, MPV 10.5, Immature Gran % (Auto) 0.900, Neut % (Auto) 89.3 H, Lymph % (Auto) 3.3 L, [place] % (Auto) 6.1, Eos % (Auto) 0.2, Baso % (Auto) 0.2, Absolute Neuts (auto) 23.3 H, Absolute Lymphs (auto) 0.87, Nucleated RBC % 0, Differential Comment SCANNED, Diff Path Review Reviewed 09/06/19 05:04: Sodium 141, Potassium 4.3, Chloride 112 H, Carbon Dioxide 23.0, Anion Gap 6, BUN 14, Creatinine 1.03, Estim Creat Clear Calc 76.15, Est GFR (MDRD) Af Amer 93, Est GFR (MDRD) Non-Af 77, BUN/Creatinine Ratio 13.6, Glucose 153 H, Calcium 7.9 L, Total Bilirubin 0.80, AST 33, ALT 76 H, Alkaline Phosphatase 72, Total Protein 6.7, Albumin 3.4, Globulin 3.3, Albumin/Globulin Ratio 1.0, Lipase 1770 H 09/06/19 06:12: POC Glucose 141 H 09/06/19 11:56: POC Glucose 125 H Current Medications Dextrose (D50w Syringe) 0 gm IV X1 PRN; Protocol PRN Reason: Hypoglycemia Enoxaparin Sodium (Lovenox) 40 mg SC DAILY [facility] Last Admin: 09/06/19 08:50 Dose: 40 mg Documented by: Glucagon () 1 mg IM .X1 PRN PRN Reason: Hypoglycemia Hydromorphone HCl (Dilaudid Inj) 1 mg IV Q2H PRN PRN PRN Reason: Pain Score 4-10/10 Last Admin: 09/06/19 08:55 Dose: 1 mg Documented by: Sodium Chloride () 1,000 mls @ 100 mls/hr IV .Q10H [facility] Last Infusion: 09/06/19 09:14 Dose: 100 mls/hr Documented by: Pantoprazole Sodium 40 mg/ (Sodium Chloride) 110 mls @ 330 mls/hr IV Q12 [facility] Last Infusion: 09/06/19 09:14 Dose: Infused Documented by: Insulin Human Lispro (Humalog Kwikpen (Bkc)) 0 unit SC Q6 [facility]; Protocol Last Admin: 09/06/19 11:58 Dose: Not Given Documented by: Metoprolol Tartrate (Lopressor (Beta Lory)) 12.5 mg PO BID [facility] Last Admin: 09/06/19 08:50 Dose: 12.5 mg Documented by: Ondansetron HCl (Zofran) 4 mg IV Q6H PRN PRN PRN Reason: NAUSEA/VOMITING Last Admin: 09/06/19 03:15 Dose: 4 mg Documented by: Promethazine HCl (Phenergan) 12.5 mg IV Q6H PRN PRN PRN Reason: NAUSEA/VOMITING Sodium Chloride () 10 - 40 ml IV UD PRN PRN Reason: SALINE FLUSH Last Admin: 09/05/19 21:15 Dose: 10 ml Documented by: Tamsulosin HCl (Flomax) 0.4 mg PO DAILY [facility] Last Admin: 09/06/19 08:50 Dose: 0.4 mg Documented by: Assessment/Plan This patient was seen in conjunction with Vick CASTAÑEDA. I have independently interviewed and examined the patient and reviewed pertinent history, examination findings, laboratory and plan of management. I have reviewed the note and agree with the documented findings with the few additional points. In brief, patient is 63 gentleman admitted for third episode of abdominal pain in the last 3 years. This time clinical and biochemical evidence of acute pancreatitis. Leukocytosis 22,000. Lipase 20,000, ALT and AST elevated in 100s. Total bili normal. Albumin 3.8. Lactic acid elevated. Calcium 8.5. CT abdomen without oral and IV contrast shows peripancreatic edema suggesting acute pancreatitis. Right upper quadrant sonogram shows which shows multiple gallstones. CBD 5.2 mm. No pericholecystic fluid. GB wall 2.0 mm. General surgery was consulted. Discussed with Dr. Bear. Currently conservative treatment until pancreatitis is better and then lap raya probably on . 09/06/2019: Started on sips oral clear liquid. Patient still has significant abdominal pain. Serum lipase level is improved. Patient still has leukocytosis, got worse 26,000; mainly from inflammatory response of severe pancreatitis. No fever or chills. Continue IV fluid. Antibiotic not indicated. Other comorbidities include coronary artery disease, dyslipidemia: Home medications reconciliation done. Lipid profile TC 231, LDL 164, HDL 37. Currently patient home medications are on hold as patient is n.p.o. I have discussed my assessment with Vick CASTAÑEDA and orders have been reviewed. Inpatient E&M: 94054 [facility] Hosp L2
[2019-09-06 12:05] LABS: Bedside Glucose 125 mg/dL (70-110)
[2019-09-06 17:20] LABS: Bedside Glucose 120 mg/dL (70-110)
[2019-09-06] MEDS: 0.9% Normal Saline 1,000 ML 100 ML IV (20:03)
[2019-09-06 23:50] LABS: Bedside Glucose 112 mg/dL (70-110)
[2019-09-07] VITALS (8 sets, daily range): BP systolic 130–155; BP diastolic 76–88; PULSE 82–91; RESP 16–18; TEMP 36.6–37; O2SAT 91–95
[2019-09-07] MEDS: HYDROmorphone 1 MG/ML Syringe IV ×9 (02:17→23:58)
[2019-09-07] MEDS: Ondansetron 4 MG/2 ML Vial IV ×2 (02:21→19:56)
[2019-09-07] MEDS: 0.9% Saline Lock 10 ML Syringe IV ×2 (04:38→08:03)
[2019-09-07] MEDS: 0.9% Normal Saline 1,000 ML 100 ML IV ×2 (06:07→15:23)
[2019-09-07 06:10] LABS: Bedside Glucose 112 mg/dL (70-110)
[2019-09-07 06:20] LABS: Absolute Lymphocyte Count 1.14 X10^3/uL (0.83-4.51); Absolute Neutrophil Count 16.6 X10^3/uL (2.0-7.7); Basophil# 0.03 X10^3/uL; Basophil% 0.2 % (0-1); Eosinophil# 0.01 X10^3/uL; Eosinophils% 0.1 % (0-5); Hematocrit 44.5 % (40-54); Hemoglobin 13.9 g/dL (13.0-16.5); Lymphocyte # 1.14 X10^3/ul (4.0); Lymphocyte % 5.8 % (19-41); Mean Corp Hgb Conc 31.2 g/dL (32-36); Mean Corpuscular Volume 89.5 fL (80-94); Mean Platelet Vol. 10.8 fl (6.2-12.0); Monocyte# 1.26 X10^3/uL; Monocyte% 6.4 % (0-10); NRBC Flagged by Analyzer 0 % (0-5); Neutrophil # 16.63 X10^3/uL (2.7-7.7); Platelet Count 184 K/mm3 (150-450); RBC Distribution Width CV 13.9 % (11.6-14.6); RBC Distribution Width SD 45.4 fl (35.1-43.9); Red Blood Count 4.97 M/mm3 (4.6-6.2); White Blood Count 19.6 K/mm3 (4.4-11.0)
[2019-09-07 06:51] LABS: Anion Gap 1 (5-15); BUN 13 mg/dL (7-18); BUN/Creat Ratio 15.1 RATIO (10-20); Calcium,Total 8.2 mg/dL (8.5-10.1); Chloride 110 mmol/L (98-107); Creatinine, Serum 0.86 mg/dL (0.70-1.30); EST Glomerular Filtration Rate 95 mL/min (>60); Est Glom Filt Rate - Afr Amer 115 mL/min (>60); Estimated Creatinine Clearance 91.21 ml/min; Glucose 115 mg/dL (74-106); Lipase 372 U/L (73-393); Magnesium 2.4 mg/dL (1.6-2.6); Potassium 4.5 mmol/L (3.5-5.1); Sodium Level 140 mmol/L (136-145)
[2019-09-07 07:15] LABS: Phosphorus 1.4 mg/dL (2.5-4.9)
[2019-09-07] MEDS: proMETHazine 25 MG/ML Syringe 12.5 MG IV ×2 (08:03→14:44)
[2019-09-07] MEDS: Metoprolol Tartrate 25 MG Tablet 12.5 MG PO ×2 (08:17→22:03)
[2019-09-07] MEDS: Enoxaparin 40 MG/0.4 ML Syringe SC (08:17)
[2019-09-07] MEDS: Tamsulosin HCl 0.4 MG Capsule PO (08:17)
--- NOTE | 2019-09-07 11:29 | PCM.PROGNOTE ---
<Michelle Garcia - Last Filed: 09/07/19 11:39> Patient Problems: Active and Suspected Problems Pancreatitis, acute (Acute) Subjective: Patient seen and examined. Appears very uncomfortable. Complains of 10/10 generalized abdominal pain which is radiating to his back. Denies fever, chills. Denies nausea, vomiting. - Physical Exam Vitals/I&O's: Vital Signs Temp Pulse Resp BP Pulse Ox 97.9 F 82 18 146/76 H 91 09/07/19 04:37 09/07/19 08:17 09/07/19 04:37 09/07/19 04:37 09/07/19 07:50 Oxygen Delivery Method Room Air Weight: 244 lb 4.355 oz Body Mass Index (BMI) 34.0 Intake and Output for Last 24 Hours 09/05/19 09/06/19 09/07/19 23:59 23:59 23:59 Intake Total 3773.33 / 3773.33 3492.5 / 3492.5 915 / 915 Output Total 250 / 250 1625 / 1625 300 / 300 Balance 3523.33 / 3523.33 1867.5 / 1867.5 615 / 615 General: Alert, Oriented x3, Cooperative, - - Appears uncomfortable, restless HEENT: Atraumatic, PERRLA, EOMI, Normocephalic Oral: Dry Mucosa Neck: Supple, No JVD, Negative Carotid Bruits Lungs: Clear to auscultation, Normal air movement Cardiovascular: Regular rate, Regular Rhythm, Normal S1, Normal S2, No murmurs Abdomen: Bowel Sounds Present, Distended, Obese, Tender Extremities: No clubbing, No cyanosis, No edema, Capillary Refill Less than 3 Seconds Skin: No rashes, No breakdown Musculoskeletal: No Tenderness to Palpation of Joints or Extremities Neurological: Cranial nerves II-XII grossly intact, Neuro grossly intact Psych/Mental Status: Normal Affect, Appropriate Laboratory Results 09/06/19 11:56: POC Glucose 125 H 09/06/19 17:13: POC Glucose 120 H 09/06/19 23:40: POC Glucose 112 H 09/07/19 05:15: WBC 19.6 H, RBC 4.97, Hgb 13.9, Hct 44.5, MCV 89.5, MCH 28.0, MCHC 31.2 L, RDW Std Deviation 45.4 H, RDW Coeff of Mirian 13.9, Plt Count 184, MPV 10.8, Immature Gran % (Auto) 2.500 H, Neut % (Auto) 85.0 H, Lymph % (Auto) 5.8 L, [place] % (Auto) 6.4, Eos % (Auto) 0.1, Baso % (Auto) 0.2, Absolute Neuts (auto) 16.6 H, Absolute Lymphs (auto) 1.14, Nucleated RBC % 0 09/07/19 05:15: Sodium 140, Potassium 4.5, Chloride 110 H, Carbon Dioxide 29.0, Anion Gap 1 L, BUN 13, Creatinine 0.86, Estim Creat Clear Calc 91.21, Est GFR (MDRD) Af Amer 115, Est GFR (MDRD) Non-Af 95, BUN/Creatinine Ratio 15.1, Glucose 115 H, Calcium 8.2 L, Magnesium 2.4, Lipase 372 09/07/19 05:15: Phosphorus 1.4 L 09/07/19 06:01: POC Glucose 112 H Current Medications Dextrose (D50w Syringe) 0 gm IV X1 PRN; Protocol PRN Reason: Hypoglycemia Enoxaparin Sodium (Lovenox) 40 mg SC DAILY [facility] Last Admin: 09/07/19 08:17 Dose: 40 mg Documented by: Glucagon () 1 mg IM .X1 PRN PRN Reason: Hypoglycemia Hydromorphone HCl (Dilaudid Inj) 1 - 2 mg IV Q2H PRN PRN PRN Reason: Pain Score 4-10/10 Sodium Chloride () 1,000 mls @ 100 mls/hr IV .Q10H [facility] Last Admin: 09/07/19 06:07 Dose: 100 mls/hr Documented by: Pantoprazole Sodium 40 mg/ (Sodium Chloride) 110 mls @ 330 mls/hr IV Q12 [facility] Last Infusion: 09/07/19 08:42 Dose: Infused Documented by: Insulin Human Lispro (Humalog Kwikpen (Bkc)) 0 unit SC Q6 [facility]; Protocol Last Admin: 09/07/19 06:07 Dose: Not Given Documented by: Metoprolol Tartrate (Lopressor (Beta Lory)) 12.5 mg PO BID [facility] Last Admin: 09/07/19 08:17 Dose: 12.5 mg Documented by: Ondansetron HCl (Zofran) 4 mg IV Q6H PRN PRN PRN Reason: NAUSEA/VOMITING Last Admin: 09/07/19 02:21 Dose: 4 mg Documented by: Promethazine HCl (Phenergan) 12.5 mg IV Q6H PRN PRN PRN Reason: NAUSEA/VOMITING Last Admin: 09/07/19 08:03 Dose: 12.5 mg Documented by: Sodium Chloride () 10 - 40 ml IV UD PRN PRN Reason: SALINE FLUSH Last Admin: 09/07/19 08:03 Dose: 10 ml Documented by: Tamsulosin HCl (Flomax) 0.4 mg PO DAILY [facility] Last Admin: 09/07/19 08:17 Dose: 0.4 mg Documented by: Medical Necessity - Tobacco Use Smoking Status: Former smoker Assessment/Plan All Active Problems Pancreatitis, acute (Acute) Chest pain (Acute) 1. Acute recurrent pancreatitis, suspected gallstone pancreatitis-General surgery following. Plan for cholecystectomy when pancreatitis improves. PRN pain regimen. PRN antiemetics. N.p.o. except sips and chips. 2. CAD with history of stent-aspirin, Plavix on hold given plans for surgical intervention. Continue metoprolol. 3. GERD-continue PPI. 4. Hyperlipidemia-continue statin. 5. Type 2 diabetes mellitus-hold oral regimen. Accu-Cheks with sliding scale insulin. 6. BPH- continue flomax. DVT prophylaxis-Lovenox subcu This patient was seen by BENEDICT Zuleta under the supervision of Dr. Jessica. <Cornelio Jessica - Last Filed: 09/07/19 13:59> Subjective: Follow-up for severe acute pancreatitis with peripancreatic edema Patient is still complaining of abdominal pain. Also has abdominal distention. No fever or chills. Heart rate in 80s. No hypotension. Patient complained of 5/10 abdominal pain before Dilaudid. Looks uncomfortable. - Physical Exam Vitals/I&O's: Vital Signs Temp Pulse Resp BP Pulse Ox 98.4 F 84 18 137/77 H 92 09/07/19 10:35 09/07/19 10:35 09/07/19 10:35 09/07/19 10:35 09/07/19 10:35 Oxygen Delivery Method Room Air Weight: 244 lb 4.355 oz Body Mass Index (BMI) 34.0 Intake and Output for Last 24 Hours 09/05/19 09/06/19 09/07/19 23:59 23:59 23:59 Intake Total 3773.33 / 3773.33 3492.5 / 3492.5 915 / 915 Output Total 250 / 250 1625 / 1625 300 / 300 Balance 3523.33 / 3523.33 1867.5 / 1867.5 615 / 615 General: Alert, Oriented x3, Cooperative, - HEENT: Atraumatic, PERRLA, EOMI, Normocephalic Oral: Dry Mucosa Neck: Supple, No JVD, Negative Carotid Bruits Lungs: Clear to auscultation, No rhonchi, No wheeze, No rales, Diminished Cardiovascular: Regular rate, Regular Rhythm, Normal S1, Normal S2, No murmurs Abdomen: Bowel Sounds Present, Hypoactive Bowel Sounds, Obese, Tender - Tenderness present predominantly over epigastrium and right upper quadrant Extremities: No edema, Capillary Refill Less than 3 Seconds Skin: No rashes, No breakdown Musculoskeletal: No Tenderness to Palpation of Joints or Extremities, Arthritic Changes Lymphatic: No Cervical, Supraclavicular, or Inguinal Adenopathy Neurological: Cranial nerves II-XII grossly intact, Deep Tendon Reflexes 2+/4 and Symmetrical, Neuro grossly intact, Motor Exam 5/5 strength throughout Laboratory Results 09/06/19 17:13: POC Glucose 120 H 09/06/19 23:40: POC Glucose 112 H 09/07/19 05:15: WBC 19.6 H, RBC 4.97, Hgb 13.9, Hct 44.5, MCV 89.5, MCH 28.0, MCHC 31.2 L, RDW Std Deviation 45.4 H, RDW Coeff of Mirian 13.9, Plt Count 184, MPV 10.8, Immature Gran % (Auto) 2.500 H, Neut % (Auto) 85.0 H, Lymph % (Auto) 5.8 L, [place] % (Auto) 6.4, Eos % (Auto) 0.1, Baso % (Auto) 0.2, Absolute Neuts (auto) 16.6 H, Absolute Lymphs (auto) 1.14, Nucleated RBC % 0 09/07/19 05:15: Sodium 140, Potassium 4.5, Chloride 110 H, Carbon Dioxide 29.0, Anion Gap 1 L, BUN 13, Creatinine 0.86, Estim Creat Clear Calc 91.21, Est GFR (MDRD) Af Amer 115, Est GFR (MDRD) Non-Af 95, BUN/Creatinine Ratio 15.1, Glucose 115 H, Calcium 8.2 L, Magnesium 2.4, Lipase 372 09/07/19 05:15: Phosphorus 1.4 L 09/07/19 05:15: Total Bilirubin 0.90, Direct Bilirubin 0.26, AST 32, ALT 48, Alkaline Phosphatase 68, Total Protein 6.1 L, Albumin 2.8 L, Globulin 3.3 09/07/19 06:01: POC Glucose 112 H 09/07/19 11:47: POC Glucose 96 Current Medications Dextrose (D50w Syringe) 0 gm IV X1 PRN; Protocol PRN Reason: Hypoglycemia Enoxaparin Sodium (Lovenox) 40 mg SC DAILY [facility] Last Admin: 09/07/19 08:17 Dose: 40 mg Documented by: Glucagon () 1 mg IM .X1 PRN PRN Reason: Hypoglycemia Hydromorphone HCl (Dilaudid Inj) 1 - 2 mg IV Q2H PRN PRN PRN Reason: Pain Score 4-10/10 Last Admin: 09/07/19 11:40 Dose: 2 mg Documented by: Sodium Chloride () 1,000 mls @ 100 mls/hr IV .Q10H [facility] Last Admin: 09/07/19 06:07 Dose: 100 mls/hr Documented by: Pantoprazole Sodium 40 mg/ (Sodium Chloride) 110 mls @ 330 mls/hr IV Q12 [facility] Last Infusion: 09/07/19 08:42 Dose: Infused Documented by: Insulin Human Lispro (Humalog Kwikpen (Bkc)) 0 unit SC Q6 [facility]; Protocol Last Admin: 09/07/19 12:00 Dose: Not Given Documented by: Metoprolol Tartrate (Lopressor (Beta Lory)) 12.5 mg PO BID [facility] Last Admin: 09/07/19 08:17 Dose: 12.5 mg Documented by: Ondansetron HCl (Zofran) 4 mg IV Q6H PRN PRN PRN Reason: NAUSEA/VOMITING Last Admin: 09/07/19 02:21 Dose: 4 mg Documented by: Promethazine HCl (Phenergan) 12.5 mg IV Q6H PRN PRN PRN Reason: NAUSEA/VOMITING Last Admin: 09/07/19 08:03 Dose: 12.5 mg Documented by: Sodium Chloride () 10 - 40 ml IV UD PRN PRN Reason: SALINE FLUSH Last Admin: 09/07/19 08:03 Dose: 10 ml Documented by: Tamsulosin HCl (Flomax) 0.4 mg PO DAILY [facility] Last Admin: 09/07/19 08:17 Dose: 0.4 mg Documented by: Assessment/Plan This patient was seen in conjunction with Michelle BERNARDO. I have independently interviewed and examined the patient and reviewed pertinent history, examination findings, laboratory and plan of management. I have reviewed the note and agree with the documented findings with the few additional points. In brief, patient is 63 gentleman admitted for third episode of abdominal pain in the last 3 years. This time clinical and biochemical evidence of acute pancreatitis. Leukocytosis 22,000. Lipase 20,000, ALT and AST elevated in 100s. Total bili normal. Albumin 3.8. Lactic acid elevated. Calcium 8.5. CT abdomen without oral and IV contrast shows peripancreatic edema suggesting acute pancreatitis. Right upper quadrant sonogram shows which shows multiple gallstones. CBD 5.2 mm. No pericholecystic fluid. GB wall 2.0 mm. 09/07/2019: LFT shows normal transaminases, TB 0.9. K4.5, phosphorus 1.4. Magnesium 2.4. Discussed with Dr. Bear. We agreed upon CT abdomen with oral and IV contrast patient is having non-resolving abdominal pain. Continue conservative treatment until pancreatitis is better. Lap raya is postponed. Leukocytosis slightly better. Continue sips and chips as per tolerated. Other comorbidities include coronary artery disease, dyslipidemia: Home medications reconciliation done. Lipid profile TC 231, LDL 164, HDL 37. Currently patient home medications are on hold as patient is n.p.o. I have discussed my assessment with Michelle BERNARDO and orders have been reviewed. Inpatient E&M: [id number] [facility] Hosp L3
[2019-09-07 11:50] LABS: Bedside Glucose 96 mg/dL (70-110)
--- NOTE | 2019-09-07 12:31 | CT_ITS ---
STUDY: CT ABDOMEN AND PELVIS WITH CONTRAST REASON FOR EXAM: Male, 63 years old. ABD PAIN/DISTENTION ? PANCREATITIS RADIATION DOSAGE (If Supplied By Facility): CTDIvol = ( 23.83 ) mGy, DLP = ( 1896.11 ) mGycm TECHNIQUE: Transaxial images were obtained from the dome of the diaphragm to the symphysis pubis with oral contrast. Oral and amp; IV Gastrografin and amp; 100mL Isovue-300 was administered. Sagittal and coronal images were reconstructed. Individualized dose optimization techniques were used for this CT. COMPARISON: Comparison is made with prior examination dated September 05, 2019. FINDINGS: New small left pleural effusion with left lower lobe infiltration. Increased markings at the right lung base suggestive of atelectasis and/or early infiltrate. Minimal right pleural effusion. The visualized portions of the heart are within normal limits. There is decreased attenuation of the liver consistent with steatosis. There are multiple mall gallstones. Normal spleen. There is diffuse enlargement of the pancreas with patrice-pancreatic edema suggesting acute pancreatitis. There has been mild degree of progression of the inflammatory changes in the region of the tail the pancreas as well as the left anterior pararenal space. Inflammatory changes are also seen in the right anterior pararenal space with minimal amount of fluid in the right paracolic gutter. Normal bilateral adrenal glands. Horseshoe kidney. Punctate nonobstructive calculus is seen in the lower pole calyx of the left kidney. Stable small cyst in the upper pole of the left kidney. Normal visualized stomach. Normal small intestine. There are scattered colonic diverticula consistent with diverticulosis. The appendix is visualized and appears normal. Normal abdominal aorta. Normal inferior vena cava. Normal retroperitoneum. Normal urinary bladder. There are prostatic calcifications. Normal abdominal wall. There are degenerative changes of the visualized lumbar spine. CT/Abdomen/Pelvis WITH Contrast IMPRESSION: There has been mild to moderate degree of progression of the acute pancreatitis with increased confirmatory changes in the pararenal spaces bilaterally in the small amount of fluid in the right paracolic gutter. Multiple small gallstones. Consolidation in the left lower lobe with increased markings at the right lung base. Electronically Signed: Balwinder Clemens, at 15:49 EDT , Service support ,
[2019-09-07 12:52] LABS: AST(SGOT) 32 U/L (15-37); Alanine Aminotransfer ALT/SGPT 48 U/L (16-61); Albumin, Serum 2.8 g/dL (3.2-5.0); Alkaline Phosphatase 68 U/L (45-117); Bilirubin, Direct 0.26 mg/dL (0.00-0.30); Globulin 3.3 g/dL (2.2-4.2); Protein, Total 6.1 g/dL (6.4-8.2)
--- NOTE | 2019-09-07 15:54 | PN.SURG_ITS ---
Patient Problems: Active and Suspected Problems Pancreatitis, acute (Acute) Subjective: Patient states that he still feeling abdominal pain. It is slightly better than it once was but he still requiring IV pain medication. CAT scan of the abdomen and pelvis with IV and p.o. contrast have been obtained which showed: IMPRESSION: There has been mild to moderate degree of progression of the acute pancreatitis with increased confirmatory changes in the pararenal spaces bilaterally in the small amount of fluid in the right paracolic gutter. Multiple small gallstones. Consolidation in the left lower lobe with increased markings at the right lung base. Objective: Epigastric and right upper quadrant and left upper quadrant abdominal pain is palpated his abdomen is soft there is no rebound guarding or peritoneal signs identified. - Physical Exam Vitals/I&O's: Vital Signs Temp Pulse Resp BP Pulse Ox 98.4 F 84 18 137/77 H 92 09/07/19 10:35 09/07/19 10:35 09/07/19 10:35 09/07/19 10:35 09/07/19 10:35 Oxygen Delivery Method Room Air Weight: 244 lb 4.355 oz Body Mass Index (BMI) 34.0 Intake and Output for Last 24 Hours 09/05/19 09/06/19 09/07/19 23:59 23:59 23:59 Intake Total 3773.33 / 3773.33 3492.5 / 3492.5 1841.67 / 1841.67 Output Total 250 / 250 1625 / 1625 300 / 300 Balance 3523.33 / 3523.33 1867.5 / 1867.5 1541.67 / 1541.67 Laboratory Results 09/06/19 17:13: POC Glucose 120 H 09/06/19 23:40: POC Glucose 112 H 09/07/19 05:15: WBC 19.6 H, RBC 4.97, Hgb 13.9, Hct 44.5, MCV 89.5, MCH 28.0, MCHC 31.2 L, RDW Std Deviation 45.4 H, RDW Coeff of Mirian 13.9, Plt Count 184, MPV 10.8, Immature Gran % (Auto) 2.500 H, Neut % (Auto) 85.0 H, Lymph % (Auto) 5.8 L , [place] % (Auto) 6.4, Eos % (Auto) 0.1, Baso % (Auto) 0.2, Absolute Neuts (auto) 16.6 H, Absolute Lymphs (auto) 1.14, Nucleated RBC % 0 09/07/19 05:15: Sodium 140, Potassium 4.5, Chloride 110 H, Carbon Dioxide 29.0, Anion Gap 1 L, BUN 13, Creatinine 0.86, Estim Creat Clear Calc 91.21, Est GFR (MDRD) Af Amer 115, Est GFR (MDRD) Non-Af 95, BUN/Creatinine Ratio 15.1, Glucose 115 H, Calcium 8.2 L, Magnesium 2.4, Lipase 372 09/07/19 05:15: Phosphorus 1.4 L 09/07/19 05:15: Total Bilirubin 0.90, Direct Bilirubin 0.26, AST 32, ALT 48, Alkaline Phosphatase 68, Total Protein 6.1 L, Albumin 2.8 L, Globulin 3.3 09/07/19 06:01: POC Glucose 112 H 09/07/19 11:47: POC Glucose 96 Current Medications Dextrose (D50w Syringe) 0 gm IV X1 PRN; Protocol PRN Reason: Hypoglycemia Enoxaparin Sodium (Lovenox) 40 mg SC DAILY [facility] Last Admin: 09/07/19 08:17 Dose: 40 mg Documented by: Glucagon () 1 mg IM .X1 PRN PRN Reason: Hypoglycemia Hydromorphone HCl (Dilaudid Inj) 1 - 2 mg IV Q2H PRN PRN PRN Reason: Pain Score 4-10/10 Last Admin: 09/07/19 14:39 Dose: 2 mg Documented by: Sodium Chloride () 1,000 mls @ 100 mls/hr IV .Q10H [facility] Last Admin: 09/07/19 15:23 Dose: 100 mls/hr Documented by: Pantoprazole Sodium 40 mg/ (Sodium Chloride) 110 mls @ 330 mls/hr IV Q12 [facility] Last Infusion: 09/07/19 08:42 Dose: Infused Documented by: Potassium Phosphate 21 mm/ (Sodium Chloride) 257 mls @ 84 mls/hr IV X1 ONE Stop: 09/07/19 17:33 Last Admin: 09/07/19 14:54 Dose: 84 mls/hr Documented by: Insulin Human Lispro (Humalog Kwikpen (Bkc)) 0 unit SC Q6 [facility]; Protocol Last Admin: 09/07/19 12:00 Dose: Not Given Documented by: Metoprolol Tartrate (Lopressor (Beta Lory)) 12.5 mg PO BID [facility] Last Admin: 09/07/19 08:17 Dose: 12.5 mg Documented by: Ondansetron HCl (Zofran) 4 mg IV Q6H PRN PRN PRN Reason: NAUSEA/VOMITING Last Admin: 09/07/19 02:21 Dose: 4 mg Documented by: Promethazine HCl (Phenergan) 12.5 mg IV Q6H PRN PRN PRN Reason: NAUSEA/VOMITING Last Admin: 09/07/19 14:44 Dose: 12.5 mg Documented by: Sodium Chloride () 10 - 40 ml IV UD PRN PRN Reason: SALINE FLUSH Last Admin: 09/07/19 08:03 Dose: 10 ml Documented by: Tamsulosin HCl (Flomax) 0.4 mg PO DAILY [facility] Last Admin: 09/07/19 08:17 Dose: 0.4 mg Documented by: Medical Necessity - Tobacco Use Smoking Status: Former smoker Assessment/Plan All Active Problems Pancreatitis, acute (Acute) Chest pain (Acute) Patient has significant pancreatitis with swelling and edema and fluid secondary to it. It is unlikely we are going to be removing his gallbladder during this admission until he shows some significant improvement in his symptoms. This is going to be a rather long process for the patient. I have relayed this to him as well as his over the phone.
[2019-09-07 17:20] LABS: Bedside Glucose 76 mg/dL (70-110)
[2019-09-07] MEDS: Dext 5%-0.45% NS 1,000 ML 100 ML IV (18:16)
[2019-09-07 22:00] LABS: Bedside Glucose 125 mg/dL (70-110)
[2019-09-08] VITALS (7 sets, daily range): BP systolic 122–147; BP diastolic 60–87; PULSE 74–103; RESP 18–20; TEMP 36.3–37.2; O2SAT 96–98
[2019-09-08 00:01] LABS: Bedside Glucose 109 mg/dL (70-110)
[2019-09-08] MEDS: proMETHazine 25 MG/ML Syringe 12.5 MG IV ×3 (00:05→18:16)
[2019-09-08] MEDS: HYDROmorphone 1 MG/ML Syringe IV ×8 (03:50→23:12)
[2019-09-08] MEDS: Dext 5%-0.45% NS 1,000 ML 100 ML IV ×2 (04:07→15:23)
[2019-09-08 06:12] LABS: Hematocrit 41.8 % (40-54); Hemoglobin 13.4 g/dL (13.0-16.5); Mean Corp Hgb Conc 32.1 g/dL (32-36); Mean Corpuscular Hgb 28.1 pg (27.0-32.0); Mean Corpuscular Volume 87.6 fL (80-94); Platelet Count 180 K/mm3 (150-450); RBC Distribution Width SD 45.1 fl (35.1-43.9); Red Blood Count 4.77 M/mm3 (4.6-6.2)
[2019-09-08] MEDS: 0.9% Saline Lock 10 ML Syringe IV ×8 (06:21→23:12)
[2019-09-08 06:30] LABS: Bedside Glucose 120 mg/dL (70-110)
[2019-09-08 06:41] LABS: ALB/GLOB Ratio 0.7 RATIO (0.9-2.4); AST(SGOT) 20 U/L (15-37); Alanine Aminotransfer ALT/SGPT 40 U/L (16-61); Albumin, Serum 2.5 g/dL (3.2-5.0); Alkaline Phosphatase 65 U/L (45-117); Anion Gap 3 (5-15); BUN 12 mg/dL (7-18); BUN/Creat Ratio 16.2 RATIO (10-20); Calcium,Total 7.7 mg/dL (8.5-10.1); Chloride 105 mmol/L (98-107); Creatinine, Serum 0.74 mg/dL (0.70-1.30); EST Glomerular Filtration Rate 113 mL/min (>60); Est Glom Filt Rate - Afr Amer 136 mL/min (>60); Globulin 3.5 g/dL (2.2-4.2); Glucose 130 mg/dL (74-106); Lipase 101 U/L (73-393); Potassium 3.8 mmol/L (3.5-5.1); Sodium Level 136 mmol/L (136-145)
[2019-09-08 09:02] LABS: Phosphorus 1.2 mg/dL (2.5-4.9)
[2019-09-08] MEDS: Bisacodyl 10 MG Suppository RECTAL (09:10)
[2019-09-08] MEDS: Metoprolol Tartrate 25 MG Tablet 12.5 MG PO ×2 (09:17→21:06)
[2019-09-08] MEDS: Tamsulosin HCl 0.4 MG Capsule PO (09:17)
[2019-09-08] MEDS: Enoxaparin 40 MG/0.4 ML Syringe SC (09:18)
--- NOTE | 2019-09-08 10:26 | PCM.PROGNOTE ---
<Michelle Garcia - Last Filed: 09/08/19 10:41> Patient Problems: Active and Suspected Problems Pancreatitis, acute (Acute) Subjective: Patient seen and examined. Continues to have significant abdominal pain, abdominal distention. Reports he is not passing gas. No bowel movement since admission. Denies nausea and vomiting. - Physical Exam Vitals/I&O's: Vital Signs Temp Pulse Resp BP Pulse Ox 97.9 F 84 20 H 136/87 H 95 09/08/19 03:00 09/08/19 09:17 09/08/19 03:00 09/08/19 03:00 09/07/19 20:05 Oxygen Delivery Method Room Air Weight: 244 lb 4.355 oz Body Mass Index (BMI) 34.0 Intake and Output for Last 24 Hours 09/06/19 09/07/19 09/08/19 23:59 23:59 23:59 Intake Total 3492.5 / 3492.5 2587.00 / 2687.00 723.33 / 723.33 Output Total 1625 / 1625 1100 / 1100 150 / 150 Balance 1867.5 / 1867.5 1487.00 / 1587.00 573.33 / 573.33 General: Alert, Oriented x3, Cooperative HEENT: Atraumatic, PERRLA, EOMI, Normocephalic Oral: Dry Mucosa Neck: Supple, No JVD, Negative Carotid Bruits Lungs: Clear to auscultation, Diminished Cardiovascular: Regular rate, Regular Rhythm, Normal S1, Normal S2, No murmurs Abdomen: Hypoactive Bowel Sounds, Distended, Obese, Tender Extremities: No clubbing, No cyanosis, No edema, Capillary Refill Less than 3 Seconds Skin: No rashes, No breakdown Musculoskeletal: No Tenderness to Palpation of Joints or Extremities Neurological: Cranial nerves II-XII grossly intact, Neuro grossly intact Psych/Mental Status: Normal Affect, Appropriate Laboratory Results 09/07/19 05:15: Total Bilirubin 0.90, Direct Bilirubin 0.26, AST 32, ALT 48, Alkaline Phosphatase 68, Total Protein 6.1 L, Albumin 2.8 L, Globulin 3.3 09/07/19 11:47: POC Glucose 96 09/07/19 17:12: POC Glucose 76 09/07/19 21:53: POC Glucose 125 H 09/07/19 23:53: POC Glucose 109 09/08/19 05:45: WBC 13.0 H, RBC 4.77, Hgb 13.4, Hct 41.8, MCV 87.6, MCH 28.1, MCHC 32.1, RDW Std Deviation 45.1 H, RDW Coeff of Mirian 14.0, Plt Count 180, MPV 11.0 09/08/19 05:45: Sodium 136, Potassium 3.8, Chloride 105, Carbon Dioxide 28.0, Anion Gap 3 L, BUN 12, Creatinine 0.74, Estim Creat Clear Calc 106.00, Est GFR (MDRD) Af Amer 136, Est GFR (MDRD) Non-Af 113, BUN/Creatinine Ratio 16.2, Glucose 130 H, Calcium 7.7 L, Total Bilirubin 1.10 H, AST 20, ALT 40, Alkaline Phosphatase 65, Total Protein 6.0 L, Albumin 2.5 L, Globulin 3.5, Albumin/Globulin Ratio 0.7 L, Lipase 101 09/08/19 05:45: Phosphorus 1.2 L 09/08/19 06:24: POC Glucose 120 H Current Medications Dextrose (D50w Syringe) 0 gm IV X1 PRN; Protocol PRN Reason: Hypoglycemia Enoxaparin Sodium (Lovenox) 40 mg SC DAILY COUNT INCLUDES THE [facility] Last Admin: 09/08/19 09:18 Dose: 40 mg Documented by: Glucagon () 1 mg IM .X1 PRN PRN Reason: Hypoglycemia Hydromorphone HCl (Dilaudid Inj) 1 - 2 mg IV Q2H PRN PRN PRN Reason: Pain Score 4-10/10 Last Admin: 09/08/19 09:11 Dose: 1 mg Documented by: Pantoprazole Sodium 40 mg/ (Sodium Chloride) 110 mls @ 330 mls/hr IV Q12 [facility] Last Admin: 09/08/19 10:03 Dose: 330 mls/hr Documented by: Dextrose/Sodium Chloride () 1,000 mls @ 100 mls/hr IV .Q10H COUNT INCLUDES THE [facility] Last Admin: 09/08/19 04:07 Dose: 100 mls/hr Documented by: Potassium Phosphate 30 mm/ (Sodium Chloride) 260 mls @ 42 mls/hr IV X1 ONE Stop: 09/08/19 15:41 Insulin Human Lispro (Humalog Kwikpen (Bkc)) 0 unit SC Q6 COUNT INCLUDES THE [facility]; Protocol Last Admin: 09/08/19 06:25 Dose: Not Given Documented by: Metoprolol Tartrate (Lopressor (Beta Lory)) 12.5 mg PO BID COUNT INCLUDES THE [facility] Last Admin: 09/08/19 09:17 Dose: 12.5 mg Documented by: Ondansetron HCl (Zofran) 4 mg IV Q6H PRN PRN PRN Reason: NAUSEA/VOMITING Last Admin: 09/07/19 19:56 Dose: 4 mg Documented by: Promethazine HCl (Phenergan) 12.5 mg IV Q6H PRN PRN PRN Reason: NAUSEA/VOMITING Last Admin: 09/08/19 00:05 Dose: 12.5 mg Documented by: Sodium Chloride () 10 - 40 ml IV UD PRN PRN Reason: SALINE FLUSH Last Admin: 09/08/19 08:25 Dose: 10 ml Documented by: Tamsulosin HCl (Flomax) 0.4 mg PO DAILY COUNT INCLUDES THE [facility] Last Admin: 09/08/19 09:17 Dose: 0.4 mg Documented by: Medical Necessity - Tobacco Use Smoking Status: Former smoker Assessment/Plan All Active Problems Pancreatitis, acute (Acute) Chest pain (Acute) 1. Acute recurrent pancreatitis, suspected gallstone pancreatitis-General surgery following. No plans for surgical intervention given ongoing severe pain. PRN pain regimen. PRN antiemetics. N.p.o. except sips and chips. Per surgery, this may be a long process before symptom improvement. Patient may need PICC line for nutrition. 2. CAD with history of stent-aspirin, Plavix on hold. Continue metoprolol. 3. GERD-continue PPI. 4. Hyperlipidemia-continue statin. 5. Type 2 diabetes mellitus-hold oral regimen. Accu-Cheks with sliding scale insulin. 6. BPH- continue flomax. DVT prophylaxis-Lovenox subcu This patient was seen by BENEDICT Zuleta under the supervision of Dr. Jessica. <Cornelio Jessica - Last Filed: 09/08/19 12:24> Subjective: Seen and examined. Patient still has abdominal pain with distention, intensity 10/10. He did not pass gas. Discussed the finding of CT abdomen with the patient. No nausea vomiting. No fever or chills. No tachycardia. No tachypnea or hypoxia. Leukocytosis is improved. Lipase is normal. - Physical Exam Vitals/I&O's: Vital Signs Temp Pulse Resp BP Pulse Ox 97.3 F L 88 18 147/82 H 97 09/08/19 10:00 09/08/19 10:00 09/08/19 10:00 09/08/19 10:00 09/08/19 10:00 Oxygen Delivery Method Room Air Weight: 244 lb 4.355 oz Body Mass Index (BMI) 34.0 Intake and Output for Last 24 Hours 09/06/19 09/07/19 09/08/19 23:59 23:59 23:59 Intake Total 3492.5 / 3492.5 2587.00 / 2687.00 723.33 / 723.33 Output Total 1625 / 1625 1100 / 1100 150 / 150 Balance 1867.5 / 1867.5 1487.00 / 1587.00 573.33 / 573.33 General: Alert, Oriented x3, Cooperative HEENT: Atraumatic, PERRLA, EOMI, Normocephalic Neck: Supple, No JVD, Negative Carotid Bruits Lungs: Clear to auscultation, Diminished - Air entry diminished in bilateral lung bases. Cardiovascular: Regular rate, Regular Rhythm, Normal S2, No murmurs Abdomen: Bowel Sounds Present, Soft, Hypoactive Bowel Sounds, Distended, Obese, Tender - Diffuse tenderness predominantly over epigastrium and right upper quadrant Extremities: No edema, Capillary Refill Less than 3 Seconds Skin: No rashes, No breakdown Musculoskeletal: No Tenderness to Palpation of Joints or Extremities, Arthritic Changes Neurological: Cranial nerves II-XII grossly intact, Deep Tendon Reflexes 2+/4 and Symmetrical, Neuro grossly intact Psych/Mental Status: Normal Affect, Appropriate Laboratory Results 09/07/19 05:15: Total Bilirubin 0.90, Direct Bilirubin 0.26, AST 32, ALT 48, Alkaline Phosphatase 68, Total Protein 6.1 L, Albumin 2.8 L, Globulin 3.3 09/07/19 17:12: POC Glucose 76 09/07/19 21:53: POC Glucose 125 H 09/07/19 23:53: POC Glucose 109 09/08/19 05:45: WBC 13.0 H, RBC 4.77, Hgb 13.4, Hct 41.8, MCV 87.6, MCH 28.1, MCHC 32.1, RDW Std Deviation 45.1 H, RDW Coeff of Mirian 14.0, Plt Count 180, MPV 11.0 09/08/19 05:45: Sodium 136, Potassium 3.8, Chloride 105, Carbon Dioxide 28.0, Anion Gap 3 L, BUN 12, Creatinine 0.74, Estim Creat Clear Calc 106.00, Est GFR (MDRD) Af Amer 136, Est GFR (MDRD) Non-Af 113, BUN/Creatinine Ratio 16.2, Glucose 130 H, Calcium 7.7 L, Total Bilirubin 1.10 H, AST 20, ALT 40, Alkaline Phosphatase 65, Total Protein 6.0 L, Albumin 2.5 L, Globulin 3.5, Albumin/Globulin Ratio 0.7 L, Lipase 101 09/08/19 05:45: Phosphorus 1.2 L 09/08/19 06:24: POC Glucose 120 H 09/08/19 11:15: PT 13.8, INR 1.1 Current Medications Dextrose (D50w Syringe) 0 gm IV X1 PRN; Protocol PRN Reason: Hypoglycemia Enoxaparin Sodium (Lovenox) 40 mg SC DAILY COUNT INCLUDES THE [facility] Last Admin: 09/08/19 09:18 Dose: 40 mg Documented by: Glucagon () 1 mg IM .X1 PRN PRN Reason: Hypoglycemia Hydromorphone HCl (Dilaudid Inj) 1 - 2 mg IV Q2H PRN PRN PRN Reason: Pain Score 4-1010 Last Admin: 09/08/19 11:50 Dose: 2 mg Documented by: Pantoprazole Sodium 40 mg/ (Sodium Chloride) 110 mls @ 330 mls/hr IV Q12 [facility] Last Admin: 09/08/19 10:03 Dose: 330 mls/hr Documented by: Dextrose/Sodium Chloride () 1,000 mls @ 100 mls/hr IV .Q10H [facility] Last Admin: 09/08/19 04:07 Dose: 100 mls/hr Documented by: Potassium Phosphate 30 mm/ (Sodium Chloride) 260 mls @ 42 mls/hr IV X1 ONE Stop: 09/08/19 15:41 Last Admin: 09/08/19 10:51 Dose: 42 mls/hr Documented by: Insulin Human Lispro (Humalog Kwikpen (Bkc)) 0 unit SC Q6 [facility]; Protocol Last Admin: 09/08/19 11:56 Dose: Not Given Documented by: Metoprolol Tartrate (Lopressor (Beta Lory)) 12.5 mg PO BID COUNT INCLUDES THE [facility] Last Admin: 09/08/19 09:17 Dose: 12.5 mg Documented by: Ondansetron HCl (Zofran) 4 mg IV Q6H PRN PRN PRN Reason: NAUSEA/VOMITING Last Admin: 09/07/19 19:56 Dose: 4 mg Documented by: Promethazine HCl (Phenergan) 12.5 mg IV Q6H PRN PRN PRN Reason: NAUSEA/VOMITING Last Admin: 09/08/19 11:46 Dose: 12.5 mg Documented by: Sodium Chloride () 10 - 40 ml IV UD PRN PRN Reason: SALINE FLUSH Last Admin: 09/08/19 11:46 Dose: 10 ml Documented by: Tamsulosin HCl (Flomax) 0.4 mg PO DAILY COUNT INCLUDES THE [facility] Last Admin: 09/08/19 09:17 Dose: 0.4 mg Documented by: Assessment/Plan This patient was seen in conjunction with STORE LEAD, Michelle. I have independently interviewed and examined the patient and reviewed pertinent history, examination findings, laboratory and plan of management. I have reviewed the note and agree with the documented findings with the few additional points. In brief, patient is 63 gentleman admitted for third episode of abdominal pain in the last 3 years. This time clinical and biochemical evidence of acute pancreatitis. Leukocytosis 22,000. Lipase 20,000, ALT and AST elevated in 100s. Total bili normal. Albumin 3.8. Lactic acid elevated. Calcium 8.5. CT abdomen without oral and IV contrast shows peripancreatic edema suggesting acute pancreatitis. Right upper quadrant sonogram shows which shows multiple gallstones. CBD 5.2 mm. No pericholecystic fluid. GB wall 2.0 mm. 09/07/2019: LFT shows normal transaminases, TB 0.9. K4.5, phosphorus 1.4. Magnesium 2.4. Discussed with Dr. Bear. We agreed upon CT abdomen with oral and IV contrast patient is having non-resolving abdominal pain. Continue conservative treatment until pancreatitis is better. Lap raya is postponed. Leukocytosis slightly better. Continue sips and chips as per tolerated. 09/08/2019: Lipase, leukocytosis and vital signs have improved. No fever. Discussed with Dr. Bear. CT abdomen with oral and IV contrast shows progression of acute pancreatitis with inflammatory changes near the tail of pancreas, pararenal fascia and left lung base along with minimal fluid in the right paracolic gutter. Then he also atelectasis on the right and left lung base. New small left pleural effusion with left lower lobe infiltration. We agreed upon soapsuds enema and Dulcolax suppository, PICC line and start of TPN. Currently no indication for antibiotic. Advised incentive spirometry. There are findings were discussed with the patient's on the phone. Other comorbidities include coronary artery disease, dyslipidemia: Home medications reconciliation done. Lipid profile TC 231, LDL 164, HDL 37. Currently patient home medications are on hold as patient is n.p.o. I have discussed my assessment with Michelle BERNARDO and orders have been reviewed. Total time of the visit including total time spent in counseling or coordination of care, (more than 50% of the total time, spent in obtaining medical information from nurses and other ancillary care providers), succussion with admissions consultant and update to the patient and patient's , review of labs and imaging is 35 minutes Clinical Impression(s) from Imaging Studies Abdomen/Pelvis CT 09/05/19 02:42 IMPRESSION: 1. CT finding suggests sequela of acute pancreatitis. 2. Cholelithiasis. 3. 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 4. Hepatic steatosis. Abdomen Ultrasound 09/05/19 08:25 IMPRESSION: Fatty infiltration of the liver. Multiple gallstones. Abdomen/Pelvis CT 09/07/19 12:31 IMPRESSION: There has been mild to moderate degree of progression of the acute pancreatitis with increased confirmatory changes in the pararenal spaces bilaterally in the small amount of fluid in the right paracolic gutter. Multiple small gallstones. Consolidation in the left lower lobe with increased markings at the right lung base. Inpatient E&M: [id number] [facility] L[facility]
--- NOTE | 2019-09-08 11:24 | NURSING ---
Notified meat stringer of physician order for PICC line placement.
--- NOTE | 2019-09-08 11:48 | PCM.PN.SRG ---
Patient Problems: Active and Suspected Problems Pancreatitis, acute (Acute) Subjective: Patient is still having significant amount of discomfort. No nausea or vomiting. Little to no flatus. Objective: Tenderness really has not changed since yesterday. No rebound guarding or peritoneal signs in the lower abdomen upper abdomen is sensitive to touch - Physical Exam Vitals/I&O's: Vital Signs Temp Pulse Resp BP Pulse Ox 97.3 F L 88 18 147/82 H 97 09/08/19 10:00 09/08/19 10:00 09/08/19 10:00 09/08/19 10:00 09/08/19 10:00 Oxygen Delivery Method Room Air Weight: 244 lb 4.355 oz Body Mass Index (BMI) 34.0 Intake and Output for Last 24 Hours 09/06/19 09/07/19 09/08/19 23:59 23:59 23:59 Intake Total 3492.5 / 3492.5 2587.00 / 2687.00 723.33 / 723.33 Output Total 1625 / 1625 1100 / 1100 150 / 150 Balance 1867.5 / 1867.5 1487.00 / 1587.00 573.33 / 573.33 Laboratory Results 09/07/19 05:15: Total Bilirubin 0.90, Direct Bilirubin 0.26, AST 32, ALT 48, Alkaline Phosphatase 68, Total Protein 6.1 L, Albumin 2.8 L, Globulin 3.3 09/07/19 11:47: POC Glucose 96 09/07/19 17:12: POC Glucose 76 09/07/19 21:53: POC Glucose 125 H 09/07/19 23:53: POC Glucose 109 09/08/19 05:45: WBC 13.0 H, RBC 4.77, Hgb 13.4, Hct 41.8, MCV 87.6, MCH 28.1, MCHC 32.1, RDW Std Deviation 45.1 H, RDW Coeff of Mirian 14.0, Plt Count 180, MPV 11.0 09/08/19 05:45: Sodium 136, Potassium 3.8, Chloride 105, Carbon Dioxide 28.0, Anion Gap 3 L, BUN 12, Creatinine 0.74, Estim Creat Clear Calc 106.00, Est GFR (MDRD) Af Amer 136, Est GFR (MDRD) Non-Af 113, BUN/Creatinine Ratio 16.2, Glucose 130 H, Calcium 7.7 L, Total Bilirubin 1.10 H, AST 20, ALT 40, Alkaline Phosphatase 65, Total Protein 6.0 L, Albumin 2.5 L, Globulin 3.5, Albumin/Globulin Ratio 0.7 L, Lipase 101 09/08/19 05:45: Phosphorus 1.2 L 09/08/19 06:24: POC Glucose 120 H 09/08/19 11:15: PT Pending, INR Pending Current Medications Dextrose (D50w Syringe) 0 gm IV X1 PRN; Protocol PRN Reason: Hypoglycemia Enoxaparin Sodium (Lovenox) 40 mg SC DAILY [facility] Last Admin: 09/08/19 09:18 Dose: 40 mg Documented by: Glucagon () 1 mg IM .X1 PRN PRN Reason: Hypoglycemia Hydromorphone HCl (Dilaudid Inj) 1 - 2 mg IV Q2H PRN PRN PRN Reason: Pain Score 4-03/09 Last Admin: 09/08/19 09:11 Dose: 1 mg Documented by: Pantoprazole Sodium 40 mg/ (Sodium Chloride) 110 mls @ 330 mls/hr IV Q12 [facility] Last Admin: 09/08/19 10:03 Dose: 330 mls/hr Documented by: Dextrose/Sodium Chloride () 1,000 mls @ 100 mls/hr IV .Q10H [facility] Last Admin: 09/08/19 04:07 Dose: 100 mls/hr Documented by: Potassium Phosphate 30 mm/ (Sodium Chloride) 260 mls @ 42 mls/hr IV X1 ONE Stop: 09/08/19 15:41 Last Admin: 09/08/19 10:51 Dose: 42 mls/hr Documented by: Insulin Human Lispro (Humalog Kwikpen (Bkc)) 0 unit SC Q6 [facility]; Protocol Last Admin: 09/08/19 06:25 Dose: Not Given Documented by: Metoprolol Tartrate (Lopressor (Beta Lory)) 12.5 mg PO BID [facility] Last Admin: 09/08/19 09:17 Dose: 12.5 mg Documented by: Ondansetron HCl (Zofran) 4 mg IV Q6H PRN PRN PRN Reason: NAUSEA/VOMITING Last Admin: 09/07/19 19:56 Dose: 4 mg Documented by: Promethazine HCl (Phenergan) 12.5 mg IV Q6H PRN PRN PRN Reason: NAUSEA/VOMITING Last Admin: 09/08/19 11:46 Dose: 12.5 mg Documented by: Sodium Chloride () 10 - 40 ml IV UD PRN PRN Reason: SALINE FLUSH Last Admin: 09/08/19 11:46 Dose: 10 ml Documented by: Tamsulosin HCl (Flomax) 0.4 mg PO DAILY [facility] Last Admin: 09/08/19 09:17 Dose: 0.4 mg Documented by: Medical Necessity - Tobacco Use Smoking Status: Former smoker Assessment/Plan All Active Problems Pancreatitis, acute (Acute) Chest pain (Acute) At this point since his white count is coming down I think it is best that we just treat him medically and this is going to take some time. I do not think we are dealing with necrotizing pancreatitis and I do not believe he needs an operation at this time. Inpatient E&M: 54620 [facility] Hosp L2
[2019-09-08 11:57] LABS: International Normalized Ratio 1.1; Prothrombin Time (Protime)PT. 13.8 SECONDS (11.7-14.9)
[2019-09-08 12:21] LABS: Bedside Glucose 102 mg/dL (70-110)
[2019-09-08] MEDS: Ondansetron 4 MG/2 ML Vial IV ×2 (16:04→23:19)
[2019-09-08 18:31] LABS: Bedside Glucose 101 mg/dL (70-110)
[2019-09-08 23:11] LABS: Bedside Glucose 102 mg/dL (70-110)
[2019-09-09] MEDS: 0.9% Saline Lock 10 ML Syringe IV ×8 (01:31→20:26)
[2019-09-09] MEDS: HYDROmorphone 1 MG/ML Syringe IV ×9 (01:31→22:27)
[2019-09-09] MEDS: proMETHazine 25 MG/ML Syringe 12.5 MG IV ×2 (01:32→18:23)
[2019-09-09 02:00] VITALS: BP 116/64; PULSE 77; RESP 18; TEMP 36.9; O2SAT 94
[2019-09-09 05:59] LABS: Mucous, Urine 0 SEEN /hpf (<or=2+); Squamous Epithelial Cells - UA 0 SEEN /hpf (0-5)
[2019-09-09 06:02] LABS: Color, Urine Amber (Yellow); Glucose, Dipstick Normal (Normal); Ketone-Dipstick 5 mg/dl (Negative); Leukocyte Esterase-Dipstick 25 /ul (Negative); Nitrite-Dipstick Negative (Negative); Occult Blood-Urine 10 /ul (Negative); Protein-Dipstick 30 mg/dl (Negative); Specific Gravity, Urine 1.015 (1.002-1.030); Urine Clarity Sl. Cloudy (Clear); Urine Urobilinogen 8 mg/dl (Normal)
[2019-09-09 06:05] LABS: Urine Bilirubin Dipstick 3 mg/dL (Negative)
[2019-09-09 06:13] LABS: Bacteria RARE /hpf (None Seen); Red Blood Cells-Urine 5-10 SEEN /hpf (0-5); White Blood Cells 5-10 SEEN /hpf (0-5)
[2019-09-09 06:30] LABS: Bedside Glucose 100 mg/dL (70-110)
[2019-09-09] MEDS: Ondansetron 4 MG/2 ML Vial IV ×2 (06:45→15:54)
[2019-09-09 06:55] LABS: Bedside Glucose 100 mg/dL (70-110)
[2019-09-09 07:30] LABS: Hematocrit 42.5 % (40-54); Hemoglobin 13.5 g/dL (13.0-16.5); Mean Corp Hgb Conc 31.8 g/dL (32-36); Mean Platelet Vol. 10.7 fl (6.2-12.0); Platelet Count 192 K/mm3 (150-450); RBC Distribution Width CV 13.8 % (11.6-14.6); RBC Distribution Width SD 44.9 fl (35.1-43.9); Red Blood Count 4.83 M/mm3 (4.6-6.2); White Blood Count 12.3 K/mm3 (4.4-11.0)
[2019-09-09 08:00] VITALS: BP 131/70; PULSE 65; RESP 18; TEMP 36.7; O2SAT 95
[2019-09-09 08:05] LABS: ALB/GLOB Ratio 0.7 RATIO (0.9-2.4); AST(SGOT) 51 U/L (15-37); Alanine Aminotransfer ALT/SGPT 94 U/L (16-61); Albumin, Serum 2.3 g/dL (3.2-5.0); Alkaline Phosphatase 67 U/L (45-117); Anion Gap 6 (5-15); BUN 15 mg/dL (7-18); BUN/Creat Ratio 23.7 RATIO (10-20); Calcium,Total 7.9 mg/dL (8.5-10.1); Chloride 105 mmol/L (98-107); Creatinine, Serum 0.63 mg/dL (0.70-1.30); EST Glomerular Filtration Rate 135 mL/min (>60); Est Glom Filt Rate - Afr Amer 163 mL/min (>60); Globulin 3.5 g/dL (2.2-4.2); Glucose 105 mg/dL (74-106); Phosphorus 1.6 mg/dL (2.5-4.9); Potassium 3.7 mmol/L (3.5-5.1); Protein, Total 5.8 g/dL (6.4-8.2); Sodium Level 137 mmol/L (136-145)
--- NOTE | 2019-09-09 10:21 | PCM.PROGNOTE ---
<Michelle Garcia - Last Filed: 09/09/19 10:26> Patient Problems: Active and Suspected Problems Pancreatitis, acute (Acute) Subjective: Patient seen and examined. Reports he is passing gas. Feels less bloated. Abdominal pain improving. - Physical Exam Vitals/I&O's: Vital Signs Temp Pulse Resp BP Pulse Ox 98.1 F 65 18 131/70 H 95 09/09/19 08:00 09/09/19 08:00 09/09/19 08:00 09/09/19 08:00 09/09/19 08:00 Oxygen Delivery Method Room Air Weight: 244 lb 4.355 oz Body Mass Index (BMI) 34.0 Intake and Output for Last 24 Hours 09/07/19 09/08/19 09/09/19 23:59 23:59 23:59 Intake Total 2587.00 / 2687.00 2743.33 / 2743.33 Output Total 1100 / 1100 450 / 450 200 / 200 Balance 1487.00 / 1587.00 2293.33 / 2293.33 -200 / -200 General: Alert, Oriented x3, Cooperative HEENT: Atraumatic, PERRLA, EOMI, Normocephalic Neck: Supple, No JVD, Negative Carotid Bruits Lungs: Clear to auscultation, Normal air movement Cardiovascular: Regular rate, Regular Rhythm, Normal S1, Normal S2, No murmurs Abdomen: Bowel Sounds Present, Soft, Obese, Tender Extremities: No clubbing, No cyanosis, No edema, Capillary Refill Less than 3 Seconds Skin: No rashes, No breakdown Musculoskeletal: No Tenderness to Palpation of Joints or Extremities Neurological: Cranial nerves II-XII grossly intact, Neuro grossly intact Psych/Mental Status: Normal Affect, Appropriate Laboratory Results 09/08/19 11:15: PT 13.8, INR 1.1 09/08/19 11:56: POC Glucose 102 09/08/19 18:24: POC Glucose 101 09/08/19 23:07: POC Glucose 102 09/09/19 05:36: POC Glucose 100 09/09/19 05:50: Urine Color Erika, Urine Clarity Sl. Cloudy, Urine pH 6.0, Ur Specific [place] 1.015, Urine Protein 30 H, Urine Glucose (UA) Normal, Urine Ketones 5 H, Urine Occult Blood 10 H, Urine Nitrite Negative, Urine Bilirubin 3 H, Urine Urobilinogen 8 H, Ur Leukocyte Esterase 25 H, Urine RBC 5-10 SEEN, Urine WBC 5-10 SEEN, Ur Squamous Epith Cells 0 SEEN, Urine Bacteria RARE, Urine Mucus 0 SEEN 09/09/19 06:16: Sodium 137, Potassium 3.7, Chloride 105, Carbon Dioxide 26.0, Anion Gap 6, BUN 15, Creatinine 0.63 L, Estim Creat Clear Calc 124.50, Est GFR (MDRD) Af Amer 163, Est GFR (MDRD) Non-Af 135, BUN/Creatinine Ratio 23.7 H, Glucose 105, Calcium 7.9 L, Phosphorus 1.6 L, Total Bilirubin 1.60 H, AST 51 H, ALT 94 H, Alkaline Phosphatase 67, Total Protein 5.8 L, Albumin 2.3 L, Globulin 3.5, Albumin/Globulin Ratio 0.7 L 09/09/19 06:44: POC Glucose 100 09/09/19 07:12: WBC 12.3 H, RBC 4.83, Hgb 13.5, Hct 42.5, MCV 88.0, MCH 28.0, MCHC 31.8 L, RDW Std Deviation 44.9 H, RDW Coeff of Mirian 13.8, Plt Count 192, MPV 10.7 Current Medications Bisacodyl (Dulcolax) 10 mg RECTAL DAILY [facility] Dextrose (D50w Syringe) 0 gm IV X1 PRN; Protocol PRN Reason: Hypoglycemia Enoxaparin Sodium (Lovenox) 40 mg SC DAILY [facility] Last Admin: 09/08/19 09:18 Dose: 40 mg Documented by: Glucagon () 1 mg IM .X1 PRN PRN Reason: Hypoglycemia Hydromorphone HCl (Dilaudid Inj) 0.5 - 1 mg IV Q2H PRN PRN PRN Reason: Pain Score 4-10/10 Hydromorphone HCl (Dilaudid Inj) 0.5 - 1 mg IV Q2H PRN PRN PRN Reason: Pain Score 4-10/10 Pantoprazole Sodium 40 mg/ (Sodium Chloride) 110 mls @ 330 mls/hr IV Q12 [facility] Last Infusion: 09/08/19 21:34 Dose: Infused Documented by: Amino Acids/Electrolytes/Dextrose (Clinimix E 4.25%-10% Solution 2000 Ml) 2,000 mls @ 42 mls/hr IV .Q24H [facility] Last Admin: 09/08/19 18:13 Dose: 42 mls/hr Documented by: Potassium Phosphate 30 mm/ (Sodium Chloride) 260 mls @ 42 mls/hr IV X1 ONE Stop: 09/09/19 16:11 Insulin Human Lispro (Humalog Kwikpen (Bkc)) 0 unit SC Q6 [facility]; Protocol Last Admin: 09/09/19 06:44 Dose: Not Given Documented by: Metoprolol Tartrate (Lopressor (Beta Lory)) 12.5 mg PO BID [facility] Last Admin: 09/08/19 21:06 Dose: 12.5 mg Documented by: Ondansetron HCl (Zofran) 4 mg IV Q6H PRN PRN PRN Reason: NAUSEA/VOMITING Last Admin: 09/09/19 06:45 Dose: 4 mg Documented by: Promethazine HCl (Phenergan) 12.5 mg IV Q6H PRN PRN PRN Reason: NAUSEA/VOMITING Last Admin: 09/09/19 01:32 Dose: 12.5 mg Documented by: Sodium Chloride () 10 - 40 ml IV UD PRN PRN Reason: SALINE FLUSH Last Admin: 09/09/19 04:28 Dose: 20 ml Documented by: Tamsulosin HCl (Flomax) 0.4 mg PO BID [facility] Medical Necessity - Tobacco Use Smoking Status: Former smoker Assessment/Plan All Active Problems Pancreatitis, acute (Acute) Chest pain (Acute) 1. Acute recurrent pancreatitis, suspected gallstone pancreatitis-General surgery following. No plans for surgical intervention given ongoing pain. PRN pain regimen. PRN antiemetics. N.p.o. except sips and chips. Per surgery, this may be a long process before symptom improvement. PICC line placed for TPN. Lipase greater than 20,000 on admission. Now normal. Encourage ambulation. 2. CAD with history of stent-aspirin, Plavix on hold. Continue metoprolol. 3. GERD-continue PPI. 4. Hyperlipidemia-continue statin. 5. Type 2 diabetes mellitus-hold oral regimen. Accu-Cheks with sliding scale insulin. 6. BPH- continue flomax. DVT prophylaxis-Lovenox subcu This patient was seen by BENEDICT Zuleta under the supervision of Dr. Jessica. Cornelio Meng - Last Filed: 09/09/19 14:00> Subjective: Patient had a bowel movement after enema and passed gas. He passed gas in the morning too. Abdominal pain better. No fever, nausea vomiting. Hemodynamically stable. No tachycardia, tachypnea or hypoxia. Objective: General: Alert, Oriented x3, Cooperative HEENT: Atraumatic, PERRLA, EOMI, Normocephalic Oral: Dry Mucosa Neck: Supple, No JVD, Negative Carotid Bruits Lungs: Clear to auscultation, Diminished Cardiovascular: Regular rate, Regular Rhythm, Normal S1, Normal S2, No murmurs Abdomen: Bowel Sounds present and improved, moderate tenderness and distention, diffuse predominantly in epigastrium. Extremities: No clubbing, No cyanosis, No edema, Capillary Refill Less than 3 Seconds. Right arm PICC line. On TPN Skin: No rashes, No breakdown Musculoskeletal: No Tenderness to Palpation of Joints or Extremities Neurological: Cranial nerves II-XII grossly intact, Neuro grossly intact Psych/Mental Status: Normal Affect, Appropriate - Physical Exam Vitals/I&O's: Vital Signs Temp Pulse Resp BP Pulse Ox 98.1 F 65 18 131/70 H 95 09/09/19 08:00 09/09/19 10:46 09/09/19 08:00 09/09/19 08:00 09/09/19 08:00 Oxygen Delivery Method Room Air Weight: 244 lb 4.355 oz Body Mass Index (BMI) 34.0 Intake and Output for Last 24 Hours 09/07/19 09/08/19 09/09/19 23:59 23:59 23:59 Intake Total 2587.00 / 2687.00 2743.33 / 2743.33 352 / 352 Output Total 1100 / 1100 450 / 450 575 / 575 Balance 1487.00 / 1587.00 2293.33 / 2293.33 -223 / -223 Laboratory Results 09/08/19 18:24: POC Glucose 101 09/08/19 23:07: POC Glucose 102 09/09/19 05:36: POC Glucose 100 09/09/19 05:50: Urine Color Erika, Urine Clarity Sl. Cloudy, Urine pH 6.0, Ur Specific [place] 1.015, Urine Protein 30 H, Urine Glucose (UA) Normal, Urine Ketones 5 H, Urine Occult Blood 10 H, Urine Nitrite Negative, Urine Bilirubin 3 H, Urine Urobilinogen 8 H, Ur Leukocyte Esterase 25 H, Urine RBC 5-10 SEEN, Urine WBC 5-10 SEEN, Ur Squamous Epith Cells 0 SEEN, Urine Bacteria RARE, Urine Mucus 0 SEEN 09/09/19 06:16: Sodium 137, Potassium 3.7, Chloride 105, Carbon Dioxide 26.0, Anion Gap 6, BUN 15, Creatinine 0.63 L, Estim Creat Clear Calc 124.50, Est GFR (MDRD) Af Amer 163, Est GFR (MDRD) Non-Af 135, BUN/Creatinine Ratio 23.7 H, Glucose 105, Calcium 7.9 L, Phosphorus 1.6 L, Total Bilirubin 1.60 H, AST 51 H, ALT 94 H, Alkaline Phosphatase 67, Total Protein 5.8 L, Albumin 2.3 L, Globulin 3.5, Albumin/Globulin Ratio 0.7 L 09/09/19 06:44: POC Glucose 100 09/09/19 07:12: WBC 12.3 H, RBC 4.83, Hgb 13.5, Hct 42.5, MCV 88.0, MCH 28.0, MCHC 31.8 L, RDW Std Deviation 44.9 H, RDW Coeff of Mirian 13.8, Plt Count 192, MPV 10.7 Current Medications Bisacodyl (Dulcolax) 10 mg RECTAL DAILY [facility] Last Admin: 09/09/19 10:51 Dose: 10 mg Documented by: Dextrose (D50w Syringe) 0 gm IV X1 PRN; Protocol PRN Reason: Hypoglycemia Enoxaparin Sodium (Lovenox) 40 mg SC DAILY [facility] Last Admin: 09/09/19 10:49 Dose: Not Given Documented by: Glucagon () 1 mg IM .X1 PRN PRN Reason: Hypoglycemia Heparin Sodium (Beef Lung) () 50 units IV UD PRN PRN Reason: PICC Line Heparin Flush Hydromorphone HCl (Dilaudid Inj) 0.5 - 1 mg IV Q2H PRN PRN PRN Reason: Pain Score 4-10/10 Last Admin: 09/09/19 12:47 Dose: 1 mg Documented by: Hydromorphone HCl (Dilaudid Inj) 0.5 - 1 mg IV Q2H PRN PRN PRN Reason: Pain Score 4-10/10 Pantoprazole Sodium 40 mg/ (Sodium Chloride) 110 mls @ 330 mls/hr IV Q12 [facility] Last Infusion: 09/09/19 11:09 Dose: Infused Documented by: Amino Acids/Electrolytes/Dextrose (Clinimix E 4.25%-10% Solution 2000 Ml) 2,000 mls @ 42 mls/hr IV .Q24H [facility] Stop: 09/09/19 15:59 Last Admin: 09/08/19 18:13 Dose: 42 mls/hr Documented by: Potassium Phosphate 30 mm/ (Sodium Chloride) 260 mls @ 42 mls/hr IV X1 ONE Stop: 09/09/19 16:11 Last Admin: 09/09/19 12:41 Dose: 42 mls/hr Documented by: Sodium Chloride () 250 mls @ 15 mls/hr IV .[id number] PRN PRN Reason: Saline Flush Last Infusion: 09/09/19 12:41 Dose: 0 mls/hr Documented by: Sodium Chloride () 250 mls @ 15 mls/hr IV .[id number] PRN PRN Reason: Additional IVPB Infusion Multivitamins 10 ml/ Chromium/Copper/Manganese/Seleni/Zn 1 ml/ Folic Acid 1 mg/ Amino Acids/Electrolytes 2,011 mls @ 84 mls/hr IV .[id number] [facility] Stop: 09/10/19 15:48 Metoprolol Tartrate (Lopressor (Beta Lory)) 12.5 mg PO BID [facility] Last Admin: 09/09/19 10:46 Dose: 12.5 mg Documented by: Ondansetron HCl (Zofran) 4 mg IV Q6H PRN PRN PRN Reason: NAUSEA/VOMITING Last Admin: 09/09/19 06:45 Dose: 4 mg Documented by: Promethazine HCl (Phenergan) 12.5 mg IV Q6H PRN PRN PRN Reason: NAUSEA/VOMITING Last Admin: 09/09/19 01:32 Dose: 12.5 mg Documented by: Sodium Chloride () 10 - 40 ml IV UD PRN PRN Reason: SALINE FLUSH Last Admin: 09/09/19 12:48 Dose: 20 ml Documented by: Sodium Chloride () 10 - 40 ml IV UD PRN PRN Reason: Open End PICC Flush Sodium Chloride (0.9% Nacl (Sterile) Posiflush) 10 - 40 ml IV UD PRN PRN Reason: Port access or dressing change Tamsulosin HCl (Flomax) 0.4 mg PO BID [facility] Last Admin: 09/09/19 10:49 Dose: 0.4 mg Documented by: Assessment/Plan This patient was seen in conjunction with GEAR TOOTH GRINDING MACHINE OPERATOR, Michelle. I have independently interviewed and examined the patient and reviewed pertinent history, examination findings, laboratory and plan of management. I have reviewed the note and agree with the documented findings with the few additional points. In brief, patient is 63 gentleman admitted for third episode of abdominal pain in the last 3 years. This time clinical and biochemical evidence of acute pancreatitis. Leukocytosis 22,000. Lipase 20,000, ALT and AST elevated in 100s. Total bili normal. Albumin 3.8. Lactic acid elevated. Calcium 8.5. CT abdomen without oral and IV contrast shows peripancreatic edema suggesting acute pancreatitis. Right upper quadrant sonogram shows which shows multiple gallstones. CBD 5.2 mm. No pericholecystic fluid. GB wall 2.0 mm. 09/07/2019: LFT shows normal transaminases, TB 0.9. K4.5, phosphorus 1.4. Magnesium 2.4. Discussed with Dr. Bear. We agreed upon CT abdomen with oral and IV contrast patient is having non-resolving abdominal pain. Continue conservative treatment until pancreatitis is better. Lap raya is postponed. Leukocytosis slightly better. Continue sips and chips as per tolerated. 09/08/2019: Lipase, leukocytosis and vital signs have improved. No fever. Discussed with Dr. Bear. CT abdomen with oral and IV contrast shows progression of acute pancreatitis with inflammatory changes near the tail of pancreas, pararenal fascia and left lung base along with minimal fluid in the right paracolic gutter. Then he also atelectasis on the right and left lung base. New small left pleural effusion with left lower lobe infiltration. We agreed upon soapsuds enema and Dulcolax suppository, PICC line and start of TPN. Currently no indication for antibiotic. Advised incentive spirometry. There are findings were discussed with the patient's on the phone. 09/09/2019: Slight improvement in leukocytosis. Phosphorus 1.6. K normal. On TPN. Clear liquid is started. Abdominal pain is now intermittent and improving. Patient passing flatus. Other comorbidities include coronary artery disease, dyslipidemia: Home medications reconciliation done. Lipid profile TC 231, LDL 164, HDL 37. Currently patient home medications are on hold as patient is n.p.o. I have discussed my assessment with GEAR TOOTH GRINDING MACHINE OPERATORMichelle and orders have been reviewed. Total time of the visit including total time spent in counseling or coordination of care, (more than 50% of the total time, spent in obtaining medical information from nurses and other ancillary care providers), succussion with provider contracting consultant, review of labs and imaging is 35 minutes Inpatient E&M: 52257 Subs Hosp L2
[2019-09-09 10:46] VITALS: PULSE 65
[2019-09-09] MEDS: Metoprolol Tartrate 25 MG Tablet 12.5 MG PO ×2 (10:46→22:26)
[2019-09-09] MEDS: Tamsulosin HCl 0.4 MG Capsule PO ×2 (10:49→22:26)
[2019-09-09] MEDS: Bisacodyl 10 MG Suppository RECTAL (10:51)
--- NOTE | 2019-09-09 12:03 | PCM.NTREPORT ---
Nutrition Therapy Report - History Nutrition Services has been consulted to:: Manage parenteral nutrition Current diet / nutrition support order:: Clear Liquids--flower/PO to be established. TPN--2 L Clinimix 4.25% AA/10% dextrose; no lipids (84 gm pro & 1020 kcal) - Anthropometric Measurements Height:: 5 ft 11 in Weight:: 110.8 kg Body Mass Index (BMI):: 34.0 - Relevant Labs Relevant Labs:: WBC 12.3 K/mm3 (4.4-11.0) H 09/09/19 07:12 MCHC 31.8 g/dL (32-36) L 09/09/19 07:12 RDW Std Deviation 44.9 fl (35.1-43.9) H 09/09/19 07:12 Immature Gran % (Auto) 2.500 % (0.0-0.9) H 09/07/19 05:15 Neut % (Auto) 85.0 % (47-70) H 09/07/19 05:15 Lymph % (Auto) 5.8 % (19-41) L 09/07/19 05:15 Absolute Neuts (auto) 16.6 X10^3/uL (2.0-7.7) H 09/07/19 05:15 Absolute Lymphs (auto) 0.67 X10^3/uL (0.83-4.51) L 09/05/19 12:03 Chloride 110 mmol/L (98-107) H 09/07/19 05:15 Anion Gap 3 (5-15) L 09/08/19 05:45 Creatinine 0.63 mg/dL (0.70-1.30) L 09/09/19 06:16 BUN/Creatinine Ratio 23.7 RATIO (10-20) H 09/09/19 06:16 Glucose 130 mg/dL (74-106) H 09/08/19 05:45 Lactic Acid 3.3 mmol/L (0.4-1.9) H* 09/05/19 07:04 Calcium 7.9 mg/dL (8.5-10.1) L 09/09/19 06:16 Phosphorus 1.6 mg/dL (2.5-4.9) L 09/09/19 06:16 Total Bilirubin 1.60 mg/dL (0.20-1.00) H 09/09/19 06:16 AST 51 U/L (15-37) H 09/09/19 06:16 ALT 94 U/L (16-61) H 09/09/19 06:16 Total Protein 5.8 g/dL (6.4-8.2) L 09/09/19 06:16 Albumin 2.3 g/dL (3.2-5.0) L 09/09/19 06:16 Albumin/Globulin Ratio 0.7 RATIO (0.9-2.4) L 09/09/19 06:16 Cholesterol 231 mg/dL (200) H 09/05/19 02:55 LDL Cholesterol 164 mg/dL (0-130) H 09/05/19 02:55 HDL Cholesterol 37 mg/dL (40-) L 09/05/19 02:55 Lipase 1770 U/L (73-393) H 09/06/19 05:04 - Assessment Food / Nutrition-Related History:: Pt reports stable wt & typically adequate PO/michele prior to admit with pancreatitis. Re-estimated nutrition needs~80-100 gm protein and ~1212-4520 kcal. Consult today for TPN--pt admitted with Acute recurrent pancreatitis, suspected gallstone pancreatitis. [place] much [place] [address]454 on admit 09/04 to 101 WNL yesterday. No new wt since initial review at which time pt reported stable wt. Pt started on TPN support yesterday 2 L Clinimix 4.25% AA/10% dextrose which provides~84 gm protein & 1020 kcal; no lipids. Current TPN adequately meeting est protein needs but, only meeting~50% est caloric needs. Pt was NPO with sips/chips but, advanced to clear liquids today with plans to continue TPN support per progress notes. Pt is passing gas now & feels less bloated. - Nutrition Diagnosis Problem / Etiology / Signs & Symptoms (PES):: Altered GI function related to pancreatic inflammation as evidenced by high lipase on admit, need for parenteral nutrition support & NPO/clear liquid status x day #4 today. Evidence of Malnutrition Exists:: No - Nutrition Intervention Nutrition Prescription:: Will change TPN order starting next bag to 2 L Clinimix 5% amino acid/20% dextrose; no lipids to provide 100 gm protein and 1760 kcal. Recommend advance diet as tolerated to cardiac, low fat if tolerating clear liquids. - Food / Nutrient Delivery Interventions Summary of nutrition intervention:: Establish GI tolerance with PO clear liquids as ordered and contiue TPN (no lipids) until pt able to tolerate adequate nutition by mouth. Nutrition support ordered as / adjusted to:: Will change TPN order starting next bag to 2 L Clinimix 5% amino acid/20% dextrose with MVI, electrolyes and trace elements; no lipids to provide 100 gm protein and 1760 kcal. Nutrition education provided?: No - MNT Monitoring Further MNT monitoring and evaluation required?: Yes MNT Follow-up in:: 1-2 days - Consult for TPN today from Dr. Jessica; spoke to Toy in pharmacy to follow-up.
[2019-09-09 12:14] VITALS: BMI 34.0
[2019-09-09 15:00] VITALS: BP 152/81; PULSE 74; RESP 18; TEMP 36.7; O2SAT 94
[2019-09-09 20:33] VITALS: BP 143/78; PULSE 90; RESP 18; TEMP 36.7; O2SAT 94
[2019-09-09 22:26] VITALS: PULSE 90
[2019-09-10] MEDS: HYDROmorphone 1 MG/ML Syringe IV ×9 (00:28→21:44)
[2019-09-10] MEDS: Ondansetron 4 MG/2 ML Vial IV ×4 (02:37→22:41)
[2019-09-10 02:44] VITALS: BP 150/89; PULSE 77; RESP 18; TEMP 36.8; O2SAT 95
[2019-09-10] MEDS: 0.9% Saline Lock 10 ML Syringe IV ×6 (06:16→21:44)
[2019-09-10] MEDS: proMETHazine 25 MG/ML Syringe 12.5 MG IV ×3 (06:17→18:32)
[2019-09-10 06:50] LABS: Mean Corp Hgb Conc 32.5 g/dL (32-36); Mean Corpuscular Hgb 27.9 pg (27.0-32.0); Mean Corpuscular Volume 85.8 fL (80-94); Mean Platelet Vol. 10.8 fl (6.2-12.0); Platelet Count 206 K/mm3 (150-450); RBC Distribution Width CV 13.8 % (11.6-14.6); RBC Distribution Width SD 43.4 fl (35.1-43.9); Red Blood Count 4.66 M/mm3 (4.6-6.2); White Blood Count 13.9 K/mm3 (4.4-11.0)
[2019-09-10 07:11] LABS: ALB/GLOB Ratio 0.6 RATIO (0.9-2.4); AST(SGOT) 69 U/L (15-37); Alanine Aminotransfer ALT/SGPT 160 U/L (16-61); Albumin, Serum 2.1 g/dL (3.2-5.0); Alkaline Phosphatase 90 U/L (45-117); Anion Gap 4 (5-15); BUN 13 mg/dL (7-18); BUN/Creat Ratio 22.1 RATIO (10-20); Calcium,Total 7.9 mg/dL (8.5-10.1); Chloride 105 mmol/L (98-107); Creatinine, Serum 0.59 mg/dL (0.70-1.30); EST Glomerular Filtration Rate 147 mL/min (>60); Est Glom Filt Rate - Afr Amer 178 mL/min (>60); Estimated Creatinine Clearance 132.94 ml/min; Globulin 3.5 g/dL (2.2-4.2); Glucose 146 mg/dL (74-106); Potassium 3.7 mmol/L (3.5-5.1); Protein, Total 5.6 g/dL (6.4-8.2); Sodium Level 134 mmol/L (136-145)
[2019-09-10 08:45] VITALS: BP 143/73; PULSE 77; RESP 18; TEMP 36.9; O2SAT 94
[2019-09-10] MEDS: Bisacodyl 10 MG Suppository RECTAL (09:41)
[2019-09-10] MEDS: Enoxaparin 40 MG/0.4 ML Syringe SC (09:41)
[2019-09-10] MEDS: Tamsulosin HCl 0.4 MG Capsule PO ×2 (09:41→21:49)
[2019-09-10 09:54] VITALS: PULSE 77
[2019-09-10] MEDS: Metoprolol Tartrate 25 MG Tablet 12.5 MG PO ×2 (09:54→21:49)
--- NOTE | 2019-09-10 10:33 | PN.SURG_ITS ---
Patient Problems: Active and Suspected Problems Pancreatitis, acute (Acute) Subjective: Patient had a difficult night last night. Pain has not significantly improved. He had an episode of emesis. Objective: Abdomen remains distended. He has less discomfort to palpation than he has had in the past. - Physical Exam Vitals/I&O's: Vital Signs Temp Pulse Resp BP Pulse Ox 98.5 F 77 18 143/73 H 94 09/10/19 08:45 09/10/19 09:54 09/10/19 08:45 09/10/19 08:45 09/10/19 08:45 Oxygen Delivery Method Room Air Weight: 244 lb 14.937 oz Body Mass Index (BMI) 34.0 Intake and Output for Last 24 Hours 09/08/19 09/09/19 09/10/19 23:59 23:59 23:59 Intake Total 2743.33 / 2743.33 2218.65 / 2218.65 277 / 277 Output Total 450 / 450 995 / 1345 650 / 650 Balance 2293.33 / 2293.33 1223.65 / 873.65 -373 / -373 Laboratory Results 09/10/19 05:59: WBC 13.9 H, RBC 4.66, Hgb 13.0, Hct 40.0, MCV 85.8, MCH 27.9, MCHC 32.5, RDW Std Deviation 43.4, RDW Coeff of Mirian 13.8, Plt Count 206, MPV 10.8 09/10/19 05:59: Sodium 134 L, Potassium 3.7, Chloride 105, Carbon Dioxide 25.0, Anion Gap 4 L, BUN 13, Creatinine 0.59 L, Estim Creat Clear Calc 132.94, Est GFR (MDRD) Af Amer 178, Est GFR (MDRD) Non-Af 147, BUN/Creatinine Ratio 22.1 H, Glucose 146 H, Calcium 7.9 L, Total Bilirubin 1.50 H, AST 69 H, ALT 160 H, Alkaline Phosphatase 90, Total Protein 5.6 L, Albumin 2.1 L, Globulin 3.5, Albumin/Globulin Ratio 0.6 L Current Medications Bisacodyl (Dulcolax) 10 mg RECTAL DAILY [facility] Last Admin: 09/10/19 09:41 Dose: 10 mg Documented by: Dextrose (D50w Syringe) 0 gm IV X1 PRN; Protocol PRN Reason: Hypoglycemia Enoxaparin Sodium (Lovenox) 40 mg SC DAILY [facility] Last Admin: 09/10/19 09:41 Dose: 40 mg Documented by: Glucagon () 1 mg IM .X1 PRN PRN Reason: Hypoglycemia Heparin Sodium (Beef Lung) () 50 units IV UD PRN PRN Reason: PICC Line Heparin Flush Hydromorphone HCl (Dilaudid Inj) 0.5 - 1 mg IV Q2H PRN PRN PRN Reason: Pain Score 4-10/10 Last Admin: 09/10/19 09:30 Dose: 1 mg Documented by: Hydromorphone HCl (Dilaudid Inj) 0.5 - 1 mg IV Q2H PRN PRN PRN Reason: Pain Score 4-10/10 Pantoprazole Sodium 40 mg/ (Sodium Chloride) 110 mls @ 330 mls/hr IV Q12 [facility] Last Infusion: 09/10/19 09:57 Dose: Infused Documented by: Sodium Chloride () 250 mls @ 15 mls/hr IV .[id number] PRN PRN Reason: Saline Flush Last Admin: 09/10/19 09:59 Dose: 15 mls/hr Documented by: Sodium Chloride () 250 mls @ 15 mls/hr IV .[id number] PRN PRN Reason: Additional IVPB Infusion Multivitamins 10 ml/ Chromium/Copper/Manganese/Seleni/Zn 1 ml/ Folic Acid 1 mg/ Amino Acids/Electrolytes 2,011 mls @ 84 mls/hr IV .[id number] [facility] Stop: 09/10/19 15:48 Last Admin: 09/09/19 17:20 Dose: 84 mls/hr Documented by: Metoprolol Tartrate (Lopressor (Beta Lory)) 12.5 mg PO BID [facility] Last Admin: 09/10/19 09:54 Dose: 12.5 mg Documented by: Ondansetron HCl (Zofran) 4 mg IV Q6H PRN PRN PRN Reason: NAUSEA/VOMITING Last Admin: 09/10/19 09:30 Dose: 4 mg Documented by: Promethazine HCl (Phenergan) 12.5 mg IV Q6H PRN PRN PRN Reason: NAUSEA/VOMITING Last Admin: 09/10/19 06:17 Dose: 12.5 mg Documented by: Sodium Chloride () 10 - 40 ml IV UD PRN PRN Reason: SALINE FLUSH Last Admin: 09/10/19 06:16 Dose: 20 ml Documented by: Sodium Chloride () 10 - 40 ml IV UD PRN PRN Reason: Open End PICC Flush Sodium Chloride (0.9% Nacl (Sterile) Posiflush) 10 - 40 ml IV UD PRN PRN Reason: Port access or dressing change Tamsulosin HCl (Flomax) 0.4 mg PO BID [facility] Last Admin: 09/10/19 09:41 Dose: 0.4 mg Documented by: Medical Necessity - Tobacco Use Smoking Status: Former smoker Assessment/Plan All Active Problems Pancreatitis, acute (Acute) Chest pain (Acute) Slow progression of his pancreatitis. No surgical interventions planned at this time. Inpatient E&M: 22704 Subs Hosp L2
--- NOTE | 2019-09-10 11:00 | PCM.PROGNOTE ---
<Michelle Garcia - Last Filed: 09/10/19 11:07> Patient Problems: Active and Suspected Problems Pancreatitis, acute (Acute) Subjective: Patient seen and examined. Continues to have abdominal pain. Abdomen less distended. Reports intermittent belching. Passing flatus. No bowel movement. Complains of nausea. - Physical Exam Vitals/I&O's: Vital Signs Temp Pulse Resp BP Pulse Ox 98.5 F 77 18 143/73 H 94 09/10/19 08:45 09/10/19 09:54 09/10/19 08:45 09/10/19 08:45 09/10/19 08:45 Oxygen Delivery Method Room Air Weight: 244 lb 14.937 oz Body Mass Index (BMI) 34.0 Intake and Output for Last 24 Hours 09/08/19 09/09/19 09/10/19 23:59 23:59 23:59 Intake Total 2743.33 / 2743.33 2218.65 / 2218.65 277 / 277 Output Total 450 / 450 995 / 1345 650 / 650 Balance 2293.33 / 2293.33 1223.65 / 873.65 -373 / -373 General: Alert, Oriented x3, Cooperative, - - Appears uncomfortable HEENT: Atraumatic, PERRLA, EOMI, Normocephalic Neck: Supple, No JVD, Negative Carotid Bruits Lungs: Clear to auscultation, Normal air movement Cardiovascular: Regular rate, Regular Rhythm, Normal S1, Normal S2, No murmurs Abdomen: Bowel Sounds Present, Soft, Obese, Tender Extremities: No clubbing, No cyanosis, No edema, Capillary Refill Less than 3 Seconds Skin: No rashes, No breakdown Musculoskeletal: No Tenderness to Palpation of Joints or Extremities Neurological: Cranial nerves II-XII grossly intact, Neuro grossly intact Psych/Mental Status: Normal Affect, Appropriate Laboratory Results 09/10/19 05:59: WBC 13.9 H, RBC 4.66, Hgb 13.0, Hct 40.0, MCV 85.8, MCH 27.9, MCHC 32.5, RDW Std Deviation 43.4, RDW Coeff of Mirian 13.8, Plt Count 206, MPV 10.8 09/10/19 05:59: Sodium 134 L, Potassium 3.7, Chloride 105, Carbon Dioxide 25.0, Anion Gap 4 L, BUN 13, Creatinine 0.59 L, Estim Creat Clear Calc 132.94, Est GFR (MDRD) Af Amer 178, Est GFR (MDRD) Non-Af 147, BUN/Creatinine Ratio 22.1 H, Glucose 146 H, Calcium 7.9 L, Total Bilirubin 1.50 H, AST 69 H, ALT 160 H, Alkaline Phosphatase 90, Total Protein 5.6 L, Albumin 2.1 L, Globulin 3.5, Albumin/Globulin Ratio 0.6 L Current Medications Bisacodyl (Dulcolax) 10 mg RECTAL DAILY [facility] Last Admin: 09/10/19 09:41 Dose: 10 mg Documented by: Dextrose (D50w Syringe) 0 gm IV X1 PRN; Protocol PRN Reason: Hypoglycemia Enoxaparin Sodium (Lovenox) 40 mg SC DAILY [facility] Last Admin: 09/10/19 09:41 Dose: 40 mg Documented by: Glucagon () 1 mg IM .X1 PRN PRN Reason: Hypoglycemia Heparin Sodium (Beef Lung) () 50 units IV UD PRN PRN Reason: PICC Line Heparin Flush Hydromorphone HCl (Dilaudid Inj) 0.5 - 1 mg IV Q2H PRN PRN PRN Reason: Pain Score 4-10/10 Last Admin: 09/10/19 09:30 Dose: 1 mg Documented by: Hydromorphone HCl (Dilaudid Inj) 0.5 - 1 mg IV Q2H PRN PRN PRN Reason: Pain Score 4-10/10 Pantoprazole Sodium 40 mg/ (Sodium Chloride) 110 mls @ 330 mls/hr IV Q12 [facility] Last Infusion: 09/10/19 09:57 Dose: Infused Documented by: Sodium Chloride () 250 mls @ 15 mls/hr IV .[id number] PRN PRN Reason: Saline Flush Last Admin: 09/10/19 09:59 Dose: 15 mls/hr Documented by: Sodium Chloride () 250 mls @ 15 mls/hr IV .[id number] PRN PRN Reason: Additional IVPB Infusion Multivitamins 10 ml/ Chromium/Copper/Manganese/Seleni/Zn 1 ml/ Folic Acid 1 mg/ Amino Acids/Electrolytes 2,011 mls @ 84 mls/hr IV .[id number] [facility] Stop: 09/10/19 15:48 Last Admin: 09/09/19 17:20 Dose: 84 mls/hr Documented by: Metoprolol Tartrate (Lopressor (Beta Lory)) 12.5 mg PO BID [facility] Last Admin: 09/10/19 09:54 Dose: 12.5 mg Documented by: Ondansetron HCl (Zofran) 4 mg IV Q6H PRN PRN PRN Reason: NAUSEA/VOMITING Last Admin: 09/10/19 09:30 Dose: 4 mg Documented by: Promethazine HCl (Phenergan) 12.5 mg IV Q6H PRN PRN PRN Reason: NAUSEA/VOMITING Last Admin: 09/10/19 06:17 Dose: 12.5 mg Documented by: Sodium Chloride () 10 - 40 ml IV UD PRN PRN Reason: SALINE FLUSH Last Admin: 09/10/19 06:16 Dose: 20 ml Documented by: Sodium Chloride () 10 - 40 ml IV UD PRN PRN Reason: Open End PICC Flush Sodium Chloride (0.9% Nacl (Sterile) Posiflush) 10 - 40 ml IV UD PRN PRN Reason: Port access or dressing change Tamsulosin HCl (Flomax) 0.4 mg PO BID [facility] Last Admin: 09/10/19 09:41 Dose: 0.4 mg Documented by: Medical Necessity - Tobacco Use Smoking Status: Former smoker Assessment/Plan All Active Problems Pancreatitis, acute (Acute) Chest pain (Acute) 1. Acute recurrent pancreatitis, suspected gallstone pancreatitis-General surgery following. No plans for surgical intervention given ongoing pain. PRN pain regimen. PRN antiemetics. N.p.o. except sips and chips. Per surgery, this may be a long process before symptom improvement. PICC line placed for TPN. Lipase greater than 20,000 on admission. Now normal. Encourage ambulation. 2. CAD with history of stent-aspirin, Plavix on hold. Continue metoprolol. 3. GERD-continue PPI. 4. Hyperlipidemia-continue statin. 5. Type 2 diabetes mellitus-hold oral regimen. Accu-Cheks with sliding scale insulin. 6. BPH- continue flomax. DVT prophylaxis-Lovenox subcu This patient was seen by BENEDICT Zuleta under the supervision of Dr. Jessica. <Cornelio Jessica - Last Filed: 09/10/19 12:42> Subjective: No fever, no tachycardia, tachypnea or hypoxia. Patient complains of abdominal pain 03/09, slightly worse than yesterday. Abdomen is less distended. Patient passed flatus. - Physical Exam Vitals/I&O's: Vital Signs Temp Pulse Resp BP Pulse Ox 98.5 F 77 18 143/73 H 94 09/10/19 08:45 09/10/19 09:54 09/10/19 08:45 09/10/19 08:45 09/10/19 08:45 Oxygen Delivery Method Room Air Weight: 244 lb 14.937 oz Body Mass Index (BMI) 34.0 Intake and Output for Last 24 Hours 09/08/19 09/09/19 09/10/19 23:59 23:59 23:59 Intake Total 2743.33 / 2743.33 2218.65 / 2218.65 277 / 277 Output Total 450 / 450 995 / 1345 1050 / 1050 Balance 2293.33 / 2293.33 1223.65 / 873.65 -773 / -773 General: Alert, Oriented x3, Cooperative HEENT: Atraumatic, PERRLA, EOMI, Normocephalic Neck: Supple, No JVD, Negative Carotid Bruits Lungs: Clear to auscultation, Diminished - Diminished in bilateral lung bases Cardiovascular: Regular rate, Regular Rhythm, Normal S1, Normal S2, No murmurs Abdomen: Bowel Sounds Present, Soft, Hypoactive Bowel Sounds, Distended - Mild distention, Obese, Tender Extremities: No edema, Capillary Refill Less than 3 Seconds Skin: No rashes, No breakdown Musculoskeletal: No Tenderness to Palpation of Joints or Extremities, Arthritic Changes Neurological: Cranial nerves II-XII grossly intact, Deep Tendon Reflexes 2+/4 and Symmetrical, Neuro grossly intact Psych/Mental Status: Normal Affect, Appropriate Laboratory Results 09/10/19 05:59: WBC 13.9 H, RBC 4.66, Hgb 13.0, Hct 40.0, MCV 85.8, MCH 27.9, MCHC 32.5, RDW Std Deviation 43.4, RDW Coeff of Mirian 13.8, Plt Count 206, MPV 10.8 09/10/19 05:59: Sodium 134 L, Potassium 3.7, Chloride 105, Carbon Dioxide 25.0, Anion Gap 4 L, BUN 13, Creatinine 0.59 L, Estim Creat Clear Calc 132.94, Est GFR (MDRD) Af Amer 178, Est GFR (MDRD) Non-Af 147, BUN/Creatinine Ratio 22.1 H, Glucose 146 H, Calcium 7.9 L, Total Bilirubin 1.50 H, AST 69 H, ALT 160 H, Alkaline Phosphatase 90, Total Protein 5.6 L, Albumin 2.1 L, Globulin 3.5, Albumin/Globulin Ratio 0.6 L Current Medications Al Hydroxide/Mg Hydroxide (Mylanta Ii) 15 ml PO Q6H PRN PRN PRN Reason: INDIGESTION Last Admin: 09/10/19 11:45 Dose: 15 ml Documented by: Bisacodyl (Dulcolax) 10 mg RECTAL DAILY [facility] Last Admin: 09/10/19 09:41 Dose: 10 mg Documented by: Dextrose (D50w Syringe) 0 gm IV X1 PRN; Protocol PRN Reason: Hypoglycemia Enoxaparin Sodium (Lovenox) 40 mg SC DAILY [facility] Last Admin: 09/10/19 09:41 Dose: 40 mg Documented by: Glucagon () 1 mg IM .X1 PRN PRN Reason: Hypoglycemia Heparin Sodium (Beef Lung) () 50 units IV UD PRN PRN Reason: PICC Line Heparin Flush Hydromorphone HCl (Dilaudid Inj) 0.5 - 1 mg IV Q2H PRN PRN PRN Reason: Pain Score 4-10/10 Last Admin: 09/10/19 11:33 Dose: 1 mg Documented by: Hydromorphone HCl (Dilaudid Inj) 0.5 - 1 mg IV Q2H PRN PRN PRN Reason: Pain Score 4-10/10 Pantoprazole Sodium 40 mg/ (Sodium Chloride) 110 mls @ 330 mls/hr IV Q12 [facility] Last Infusion: 09/10/19 09:57 Dose: Infused Documented by: Sodium Chloride () 250 mls @ 15 mls/hr IV .[id number] PRN PRN Reason: Saline Flush Last Admin: 09/10/19 09:59 Dose: 15 mls/hr Documented by: Sodium Chloride () 250 mls @ 15 mls/hr IV .[id number] PRN PRN Reason: Additional IVPB Infusion Multivitamins 10 ml/ Chromium/Copper/Manganese/Seleni/Zn 1 ml/ Folic Acid 1 mg/ Amino Acids/Electrolytes 2,011 mls @ 84 mls/hr IV .[id number] [facility] Stop: 09/10/19 15:48 Last Admin: 09/09/19 17:20 Dose: 84 mls/hr Documented by: Metoprolol Tartrate (Lopressor (Beta Loyr)) 12.5 mg PO BID [facility] Last Admin: 09/10/19 09:54 Dose: 12.5 mg Documented by: Ondansetron HCl (Zofran) 4 mg IV Q6H PRN PRN PRN Reason: NAUSEA/VOMITING Last Admin: 09/10/19 09:30 Dose: 4 mg Documented by: Promethazine HCl (Phenergan) 12.5 mg IV Q6H PRN PRN PRN Reason: NAUSEA/VOMITING Last Admin: 09/10/19 12:17 Dose: 12.5 mg Documented by: Sodium Chloride () 10 - 40 ml IV UD PRN PRN Reason: SALINE FLUSH Last Admin: 09/10/19 12:17 Dose: 10 ml Documented by: Sodium Chloride () 10 - 40 ml IV UD PRN PRN Reason: Open End PICC Flush Sodium Chloride (0.9% Nacl (Sterile) Posiflush) 10 - 40 ml IV UD PRN PRN Reason: Port access or dressing change Tamsulosin HCl (Flomax) 0.4 mg PO BID [facility] Last Admin: 09/10/19 09:41 Dose: 0.4 mg Documented by: Assessment/Plan This patient was seen in conjunction with EMERGENCY COMMUNICATIONS DISPATCHER, Michelle. I have independently interviewed and examined the patient and reviewed pertinent history, examination findings, laboratory and plan of management. I have reviewed the note and agree with the documented findings with the few additional points. In brief, patient is 63 gentleman admitted for third episode of abdominal pain in the last 3 years. This time clinical and biochemical evidence of acute pancreatitis. Leukocytosis 22,000. Lipase 20,000, ALT and AST elevated in 100s. Total bili normal. Albumin 3.8. Lactic acid elevated. Calcium 8.5. CT abdomen without oral and IV contrast shows peripancreatic edema suggesting acute pancreatitis. Right upper quadrant sonogram shows which shows multiple gallstones. CBD 5.2 mm. No pericholecystic fluid. GB wall 2.0 mm. 09/07/2019: LFT shows normal transaminases, TB 0.9. K4.5, phosphorus 1.4. Magnesium 2.4. Discussed with Dr. Bear. We agreed upon CT abdomen with oral and IV contrast patient is having non-resolving abdominal pain. Continue conservative treatment until pancreatitis is better. Lap raya is postponed. Leukocytosis slightly better. Continue sips and chips as per tolerated. 09/08/2019: Lipase, leukocytosis and vital signs have improved. No fever. Discussed with Dr. Bear. CT abdomen with oral and IV contrast shows progression of acute pancreatitis with inflammatory changes near the tail of pancreas, pararenal fascia and left lung base along with minimal fluid in the right paracolic gutter. Then he also atelectasis on the right and left lung base. New small left pleural effusion with left lower lobe infiltration. We agreed upon soapsuds enema and Dulcolax suppository, PICC line and start of TPN. Currently no indication for antibiotic. Advised incentive spirometry. There are findings were discussed with the patient's on the phone. 09/09/2019: Slight improvement in leukocytosis. Phosphorus 1.6. K normal. On TPN. Clear liquid is started. Abdominal pain is now intermittent and improving. Patient passing flatus. 09/10/2019: Abdominal pain is worse than yesterday. Discussed with Dr. Bear. No fever, tachycardia, tachypnea or hypoxia. Leukocytosis slightly worse. Will monitor clinically. Continue TPN. Discussed with the director of therapy services. Continue PT OT and incentive spirometry. Other comorbidities include coronary artery disease, dyslipidemia: Home medications reconciliation done. Lipid profile TC 231, LDL 164, HDL 37. Currently patient home medications are on hold as patient is n.p.o. I have discussed my assessment with Michelle BERNARDO and orders have been reviewed. Total time of the visit including total time spent in counseling or coordination of care, (more than 50% of the total time, spent in obtaining medical information from nurses and other ancillary care providers), discussion with weight loss consultant, review of labs and imaging is 35 minutes Laboratory Results 09/10/19 05:59: WBC 13.9 H, RBC 4.66, Hgb 13.0, Hct 40.0, MCV 85.8, MCH 27.9, MCHC 32.5, RDW Std Deviation 43.4, RDW Coeff of Mirian 13.8, Plt Count 206, MPV 10.8 09/10/19 05:59: Sodium 134 L, Potassium 3.7, Chloride 105, Carbon Dioxide 25.0, Anion Gap 4 L, BUN 13, Creatinine 0.59 L, Estim Creat Clear Calc 132.94, Est GFR (MDRD) Af Amer 178, Est GFR (MDRD) Non-Af 147, BUN/Creatinine Ratio 22.1 H, Glucose 146 H, Calcium 7.9 L, Total Bilirubin 1.50 H, AST 69 H, ALT 160 H, Alkaline Phosphatase 90, Total Protein 5.6 L, Albumin 2.1 L, Globulin 3.5, Albumin/Globulin Ratio 0.6 L Inpatient E&M: 16394 Subs Hosp L2
[2019-09-10] MEDS: Mag Hydrox/Al Hydrox/Simeth 30 ML UDC 15 ML PO (11:45)
--- NOTE | 2019-09-10 13:19 | PCM.NTREPORT ---
Nutrition Therapy Report - History Nutrition Services has been consulted to:: Manage parenteral nutrition Current diet / nutrition support order:: Clear Liquids as tolerated - Anthropometric Measurements Height:: 5 ft 11 in Weight:: 111.1 kg Body Mass Index (BMI):: 34.1 - Relevant Labs Relevant Labs:: WBC 13.9 K/mm3 (4.4-11.0) H 09/10/19 05:59 MCHC 31.8 g/dL (32-36) L 09/09/19 07:12 RDW Std Deviation 44.9 fl (35.1-43.9) H 09/09/19 07:12 Immature Gran % (Auto) 2.500 % (0.0-0.9) H 09/07/19 05:15 Neut % (Auto) 85.0 % (47-70) H 09/07/19 05:15 Lymph % (Auto) 5.8 % (19-41) L 09/07/19 05:15 Absolute Neuts (auto) 16.6 X10^3/uL (2.0-7.7) H 09/07/19 05:15 Absolute Lymphs (auto) 0.67 X10^3/uL (0.83-4.51) L 09/05/19 12:03 Sodium 134 mmol/L (136-145) L 09/10/19 05:59 Chloride 110 mmol/L (98-107) H 09/07/19 05:15 Anion Gap 4 (5-15) L 09/10/19 05:59 Creatinine 0.59 mg/dL (0.70-1.30) L 09/10/19 05:59 BUN/Creatinine Ratio 22.1 RATIO (10-20) H 09/10/19 05:59 Glucose 146 mg/dL (74-106) H 09/10/19 05:59 Lactic Acid 3.3 mmol/L (0.4-1.9) H* 09/05/19 07:04 Calcium 7.9 mg/dL (8.5-10.1) L 09/10/19 05:59 Phosphorus 1.6 mg/dL (2.5-4.9) L 09/09/19 06:16 Total Bilirubin 1.50 mg/dL (0.20-1.00) H 09/10/19 05:59 AST 69 U/L (15-37) H 09/10/19 05:59 ALT 160 U/L (16-61) H 09/10/19 05:59 Total Protein 5.6 g/dL (6.4-8.2) L 09/10/19 05:59 Albumin 2.1 g/dL (3.2-5.0) L 09/10/19 05:59 Albumin/Globulin Ratio 0.6 RATIO (0.9-2.4) L 09/10/19 05:59 Cholesterol 231 mg/dL (200) H 09/05/19 02:55 LDL Cholesterol 164 mg/dL (0-130) H 09/05/19 02:55 HDL Cholesterol 37 mg/dL (40-) L 09/05/19 02:55 Lipase 1770 U/L (73-393) H 09/06/19 05:04 - Assessment Food / Nutrition-Related History:: Spoke to Dr. Jessica today--plan is to continue TPN & clear liquids for now. Wt remains stable; blood glucose elevated. - Nutrition Diagnosis Problem / Etiology / Signs & Symptoms (PES):: Altered GI function related to pancreatic inflammation as evidenced by high lipase on admit, need for continued parenteral nutrition support & NPO/clear liquid status x day #5 today. Evidence of Malnutrition Exists:: No - Nutrition Intervention Nutrition Prescription:: 1.) Continue TPN as per yesterday's order of 2 L Clinimix 5% amino acid/20% dextrose; no lipids to provide 100 gm protein and 1760 kcal. 2.) Continue clear liquids as tolerated; advance diet as medically able to cardiac, low fat if tolerating clear liquids. 3.) Daily weights and labs including CMP, CBC. Will continue to monitor TPN, wt, labs and tolerance to clear liquids as established. Will manage TPN and adjust as needed. - Food / Nutrient Delivery Interventions Summary of nutrition intervention:: Continue TPN; clear liquids as tolerated. Nutrition support ordered as / adjusted to:: Continue TPN as per yesterday's order of 2 L Clinimix 5% amino acid/20% dextrose; no lipids; with electrolytes, trace minerals and MVI to provide 100 gm protein and 1760 kcal. Nutrition education provided?: No - MNT Monitoring Further MNT monitoring and evaluation required?: Yes MNT Follow-up in:: 1-2 days
[2019-09-10 13:23] VITALS: BMI 34.1
[2019-09-10 14:45] VITALS: BP 148/78; PULSE 80; RESP 18; TEMP 36.7; O2SAT 95
[2019-09-10 20:45] VITALS: BP 156/90; PULSE 93; RESP 18; TEMP 36.6; O2SAT 95
--- NOTE | 2019-09-10 20:50 | RAD_ITS ---
STUDY: X-RAY - ABDOMEN/PELVIS REASON FOR EXAM: Male, 63 years old. abdominal distention, pancreatitis TECHNIQUE: AP supine and upright views of the abdomen and pelvis. COMPARISON: None. FINDINGS: There is a small left-sided pleural effusion. There is an unremarkable bowel gas pattern. There is no demonstrated free abdominal air. The visualized liver, spleen and kidneys are grossly normal in size and morphology. Normal soft tissue structures. There are diffuse degenerative changes of the thoracic spine. RAD/Abd Decub and/or Erect(Portabl IMPRESSION: Small left-sided pleural effusion. Diffuse degenerative changes of the thoracic spine. Electronically Signed: Cosmo Wadsworth MD at 21:19 EDT , Service support ,
[2019-09-10 21:49] VITALS: BP 156/90; PULSE 93
[2019-09-11] MEDS: HYDROmorphone 1 MG/ML Syringe IV ×5 (00:16→13:53)
[2019-09-11] MEDS: proMETHazine 25 MG/ML Syringe 12.5 MG IV ×2 (00:36→07:45)
[2019-09-11 00:40] VITALS: BP 135/82; PULSE 75; RESP 18; TEMP 36.4; O2SAT 93
[2019-09-11 05:20] VITALS: BP 150/84; PULSE 94; RESP 18; TEMP 36.8; O2SAT 95
[2019-09-11] MEDS: Ondansetron 4 MG/2 ML Vial IV ×2 (05:32→10:44)
[2019-09-11 05:59] LABS: Hematocrit 40.5 % (40-54); Hemoglobin 13.3 g/dL (13.0-16.5); Mean Corp Hgb Conc 32.8 g/dL (32-36); Mean Corpuscular Volume 85.3 fL (80-94); Mean Platelet Vol. 11.1 fl (6.2-12.0); Platelet Count 183 K/mm3 (150-450); RBC Distribution Width SD 43.4 fl (35.1-43.9); Red Blood Count 4.75 M/mm3 (4.6-6.2); White Blood Count 15.8 K/mm3 (4.4-11.0)
[2019-09-11 06:11] LABS: ALB/GLOB Ratio 0.6 RATIO (0.9-2.4); AST(SGOT) 104 U/L (15-37); Alanine Aminotransfer ALT/SGPT 240 U/L (16-61); Alkaline Phosphatase 93 U/L (45-117); Anion Gap 6 (5-15); BUN 11 mg/dL (7-18); BUN/Creat Ratio 20.9 RATIO (10-20); Calcium,Total 7.6 mg/dL (8.5-10.1); Chloride 104 mmol/L (98-107); Creatinine, Serum 0.53 mg/dL (0.70-1.30); EST Glomerular Filtration Rate 166 mL/min (>60); Est Glom Filt Rate - Afr Amer 201 mL/min (>60); Globulin 3.3 g/dL (2.2-4.2); Glucose 141 mg/dL (74-106); Magnesium 2.2 mg/dL (1.6-2.6); Potassium 3.8 mmol/L (3.5-5.1); Protein, Total 5.3 g/dL (6.4-8.2); Sodium Level 135 mmol/L (136-145)
[2019-09-11 06:33] LABS: Phosphorus 2.5 mg/dL (2.5-4.9)
[2019-09-11 07:54] VITALS: BP 150/76; PULSE 87; RESP 18; TEMP 36.9; O2SAT 93
[2019-09-11] MEDS: 0.9% Saline Lock 10 ML Syringe IV ×3 (08:05→13:53)
[2019-09-11 08:12] VITALS: BP 97/58; PULSE 94; RESP 18; TEMP 36.7; O2SAT 99
--- NOTE | 2019-09-11 08:41 | CT_ITS ---
STUDY: CT ABDOMEN AND PELVIS WITH CONTRAST REASON FOR EXAM: Male, 63 years old. PANCREATITIS RADIATION DOSAGE (If Supplied By Facility): CTDIvol = ( 16.90 ) mGy, DLP = ( 1297.25 ) mGycm TECHNIQUE: Transaxial images were obtained from the dome of the diaphragm to the symphysis pubis with oral contrast. Oral and IV Gastrografin and 100mL Isovue-300 was administered. Sagittal and coronal images were reconstructed. Individualized dose optimization techniques were used for this CT. COMPARISON: Comparison is made with prior examination dated September 07, 2019. FINDINGS: Stable small left pleural effusion with left lower lobe infiltrate. The visualized portions of the heart are within normal limits. There is decreased attenuation of the liver consistent with steatosis. There are multiple gallstones. Normal spleen. There is diffuse enlargement of the pancreas with patrice-pancreatic edema suggesting acute pancreatitis. Since prior study, this has progressed with progressive bone fluid in the left upper quadrant as well as in the right anterior pararenal space and right paracolic gutter.. Normal bilateral adrenal glands. Horseshoe kidney. Stable punctate calcification in the lower pole calyx of the left kidney. Small left renal cyst. Normal visualized stomach. Normal small intestine. Normal colon. The appendix is visualized and appears normal. Normal abdominal aorta. Normal inferior vena cava. Normal retroperitoneum. Normal urinary bladder. There are prostatic calcifications. There is a small umbilical hernia containing fat. There are degenerative changes of the visualized lumbar spine. CT/Abdomen/Pelvis WITH Contrast IMPRESSION: Findings in keeping with acute pancreatitis. Since prior study, there has been progressive inflammatory changes in the peripancreatic bed as well as the anterior pararenal spaces bilaterally. Electronically Signed: Balwinder Clemens, at 12:24 EDT , Service support ,
[2019-09-11 08:45] LABS: International Normalized Ratio 1.1; Prothrombin Time (Protime)PT. 13.8 SECONDS (11.7-14.9)
[2019-09-11 08:46] LABS: GGTP 180 U/L (15-85)
--- NOTE | 2019-09-11 09:24 | CASEMGMT ---
According to the [facility] website, the following are in-network tertiary facilities: [facility], [facility], [facility], [facility], [facility], [facility], [place], [facility], and . Marshall MONROY CM
--- NOTE | 2019-09-11 10:28 | PCM.NTREPORT ---
Nutrition Therapy Report - History Nutrition Services has been consulted to:: Manage parenteral nutrition Current diet / nutrition support order:: clear liquids - Anthropometric Measurements Height:: 5 ft 11 in Weight:: 117.8 kg Body Mass Index (BMI):: 36.2 - Relevant Labs Relevant Labs:: WBC 15.8 K/mm3 (4.4-11.0) H 09/11/19 05:21 MCHC 31.8 g/dL (32-36) L 09/09/19 07:12 RDW Std Deviation 44.9 fl (35.1-43.9) H 09/09/19 07:12 Immature Gran % (Auto) 2.500 % (0.0-0.9) H 09/07/19 05:15 Neut % (Auto) 85.0 % (47-70) H 09/07/19 05:15 Lymph % (Auto) 5.8 % (19-41) L 09/07/19 05:15 Absolute Neuts (auto) 16.6 X10^3/uL (2.0-7.7) H 09/07/19 05:15 Absolute Lymphs (auto) 0.67 X10^3/uL (0.83-4.51) L 09/05/19 12:03 Sodium 135 mmol/L (136-145) L 09/11/19 05:21 Chloride 110 mmol/L (98-107) H 09/07/19 05:15 Anion Gap 4 (5-15) L 09/10/19 05:59 Creatinine 0.53 mg/dL (0.70-1.30) L 09/11/19 05:21 BUN/Creatinine Ratio 20.9 RATIO (10-20) H 09/11/19 05:21 Glucose 141 mg/dL (74-106) H 09/11/19 05:21 Lactic Acid 3.3 mmol/L (0.4-1.9) H* 09/05/19 07:04 Calcium 7.6 mg/dL (8.5-10.1) L 09/11/19 05:21 Phosphorus 1.6 mg/dL (2.5-4.9) L 09/09/19 06:16 Total Bilirubin 1.60 mg/dL (0.20-1.00) H 09/11/19 05:21 GGT 180 U/L (15-85) H 09/11/19 05:21 AST 104 U/L (15-37) H 09/11/19 05:21 ALT 240 U/L (16-61) H 09/11/19 05:21 C-React Prot Ext Range 151.00 mg/L (0.0-3.0) H 09/11/19 05:21 Total Protein 5.3 g/dL (6.4-8.2) L 09/11/19 05:21 Albumin 2.0 g/dL (3.2-5.0) L 09/11/19 05:21 Albumin/Globulin Ratio 0.6 RATIO (0.9-2.4) L 09/11/19 05:21 Cholesterol 231 mg/dL (200) H 09/05/19 02:55 LDL Cholesterol 164 mg/dL (0-130) H 09/05/19 02:55 HDL Cholesterol 37 mg/dL (40-) L 09/05/19 02:55 Lipase 1770 U/L (73-393) H 09/06/19 05:04 - Assessment Food / Nutrition-Related History:: Spoke to Dr. Jessica today--plan is to continue TPN & clear liquids for now. Noted that pt continues to large, round, firm, distended, tender abd w/ hypoactive bowel sounds. PO intake has been poor. Wt increase of 6.7 kg since adm, likely d/t IV fluids and +1 nonpitting aravind pedal edema - likely to see wt loss as fluid status improves. Receiving 2L 5%AA/20%Dextrose to provide ~ 1760 teddy / 100 gm pro/day. Will reorder for today - may need to consider addition of lipids tomorrow if TPN to continue. [ End ] - Nutrition Diagnosis Problem / Etiology / Signs & Symptoms (PES):: Pt with compromised GI fxn d/t pancreatitis and requiring TPN for nutrition Evidence of Malnutrition Exists:: No - Nutrition Intervention Nutrition Prescription:: [id number] teddy/70-80 gm pro/day - Food / Nutrient Delivery Interventions Summary of nutrition intervention:: . Receiving 2L 5%AA/20%Dextrose to provide ~ 1760 teddy / 100 gm pro/day. Will reorder for today - may need to consider addition of lipids tomorrow if TPN to continue. [ End ] Nutrition support ordered as / adjusted to:: 2L 20%Dextrose/5%AA - no lipids Nutrition education provided?: No - MNT Monitoring Further MNT monitoring and evaluation required?: No MNT Follow-up in:: 1-2 days - please call RD/LD if quesitons or concerns at [phone]
[2019-09-11 10:37] VITALS: BMI 36.2
--- NOTE | 2019-09-11 10:46 | PCM.PROGNOTE ---
<Michelle Garcia - Last Filed: 09/11/19 10:49> Subjective: Patient seen and examined. Worsening abdominal pain overnight. Denies fever, chills. Passing gas, no bowel movement. - Physical Exam Vitals/I&O's: Vital Signs Temp Pulse Resp BP Pulse Ox 98.1 F 94 18 97/58 L 99 09/11/19 08:12 09/11/19 08:12 09/11/19 08:12 09/11/19 08:12 09/11/19 08:12 Oxygen Delivery Method Room Air Weight: 259 lb 11.272 oz Body Mass Index (BMI) 36.2 Intake and Output for Last 24 Hours 09/09/19 09/10/19 09/11/19 23:59 23:59 23:59 Intake Total 2218.65 / 2218.65 2878 / 2878 2057.85 / 2057.85 Output Total 995 / 1345 1950 / 1950 200 / 200 Balance 1223.65 / 873.65 928 / 928 1857.85 / 1857.85 General: Alert, Oriented x3, Cooperative HEENT: Atraumatic, PERRLA, EOMI, Normocephalic Neck: Supple, No JVD, Negative Carotid Bruits Lungs: Clear to auscultation, Diminished Cardiovascular: Regular rate, Regular Rhythm, Normal S1, Normal S2, No murmurs Abdomen: Bowel Sounds Present, Soft, Non-Distended, Obese, Tender Extremities: No clubbing, No cyanosis, No edema, Capillary Refill Less than 3 Seconds Skin: No rashes, No breakdown Musculoskeletal: No Tenderness to Palpation of Joints or Extremities Neurological: Cranial nerves II-XII grossly intact, Neuro grossly intact Psych/Mental Status: Normal Affect, Appropriate Laboratory Results 09/11/19 05:21: WBC 15.8 H, RBC 4.75, Hgb 13.3, Hct 40.5, MCV 85.3, MCH 28.0, MCHC 32.8, RDW Std Deviation 43.4, RDW Coeff of Mirian 14.0, Plt Count 183, MPV 11.1 09/11/19 05:21: Sodium 135 L, Potassium 3.8, Chloride 104, Carbon Dioxide 25.0, Anion Gap 6, BUN 11, Creatinine 0.53 L, Estim Creat Clear Calc 148.00, Est GFR (MDRD) Af Amer 201, Est GFR (MDRD) Non-Af 166, BUN/Creatinine Ratio 20.9 H, Glucose 141 H, Calcium 7.6 L, Magnesium 2.2, Total Bilirubin 1.60 H, AST 104 H, ALT 240 H, Alkaline Phosphatase 93, Total Protein 5.3 L, Albumin 2.0 L, Globulin 3.3, Albumin/Globulin Ratio 0.6 L 09/11/19 05:21: Phosphorus 2.5 09/11/19 05:21: GGT 180 H, C-React Prot Ext Range 151.00 H 09/11/19 08:25: PT 13.8, INR 1.1 Current Medications Al Hydroxide/Mg Hydroxide (Mylanta Ii) 15 ml PO Q6H PRN PRN PRN Reason: INDIGESTION Last Admin: 09/10/19 11:45 Dose: 15 ml Documented by: Bisacodyl (Dulcolax) 10 mg RECTAL DAILY [facility] Last Admin: 09/11/19 09:43 Dose: Not Given Documented by: Dextrose (D50w Syringe) 0 gm IV X1 PRN; Protocol PRN Reason: Hypoglycemia Enoxaparin Sodium (Lovenox) 40 mg SC DAILY [facility] Last Admin: 09/10/19 09:41 Dose: 40 mg Documented by: Glucagon () 1 mg IM .X1 PRN PRN Reason: Hypoglycemia Heparin Sodium (Beef Lung) () 50 units IV UD PRN PRN Reason: PICC Line Heparin Flush Hydromorphone HCl (Dilaudid Inj) 0.5 - 1 mg IV Q2H PRN PRN PRN Reason: Pain Score 4-10/10 Last Admin: 09/11/19 08:05 Dose: 1 mg Documented by: Hydromorphone HCl (Dilaudid Inj) 0.5 - 1 mg IV Q2H PRN PRN PRN Reason: Pain Score 4-10/10 Pantoprazole Sodium 40 mg/ (Sodium Chloride) 110 mls @ 330 mls/hr IV Q12 [facility] Last Infusion: 09/10/19 22:14 Dose: Infused Documented by: Sodium Chloride () 250 mls @ 30 mls/hr IV .Q8H20M PRN PRN Reason: Saline Flush Last Infusion: 09/11/19 09:44 Dose: 0 mls/hr Documented by: Multivitamins 10 ml/ Chromium/Copper/Manganese/Seleni/Zn 1 ml/ Amino Acids/Electrolytes 2,011 mls @ 84 mls/hr IV .[id number] [facility] Stop: 09/11/19 15:48 Last Infusion: 09/11/19 09:44 Dose: 84 mls/hr Documented by: Piperacillin Sod/Tazobactam (Sod 3.375 gm/ Sodium Chloride) 50 mls @ 12.5 mls/hr IV Q8 [facility] Last Admin: 09/11/19 09:43 Dose: 12.5 mls/hr Documented by: Multivitamins 10 ml/ Chromium/Copper/Manganese/Seleni/Zn 1 ml/ Folic Acid 1 mg/ Amino Acids/Electrolytes 2,011 mls @ 84 mls/hr IV .[id number] [facility] Stop: 09/12/19 15:48 Metoprolol Tartrate (Lopressor (Beta Lory)) 12.5 mg PO BID [facility] Last Admin: 09/10/19 21:49 Dose: 12.5 mg Documented by: Ondansetron HCl (Zofran) 4 mg IV Q6H PRN PRN PRN Reason: NAUSEA/VOMITING Last Admin: 09/11/19 10:44 Dose: 4 mg Documented by: Promethazine HCl (Phenergan) 12.5 mg IV Q6H PRN PRN PRN Reason: NAUSEA/VOMITING Last Admin: 09/11/19 07:45 Dose: 12.5 mg Documented by: Simethicone (Mylicon) 80 mg PO TIDPC [facility] Last Admin: 09/11/19 08:05 Dose: 80 mg Documented by: Sodium Chloride () 10 - 40 ml IV UD PRN PRN Reason: SALINE FLUSH Last Admin: 09/11/19 10:43 Dose: 10 ml Documented by: Sodium Chloride () 10 - 40 ml IV UD PRN PRN Reason: Open End PICC Flush Sodium Chloride (0.9% Nacl (Sterile) Posiflush) 10 - 40 ml IV UD PRN PRN Reason: Port access or dressing change Tamsulosin HCl (Flomax) 0.4 mg PO BID [facility] Last Admin: 09/10/19 21:49 Dose: 0.4 mg Documented by: Medical Necessity - Tobacco Use Smoking Status: Former smoker Assessment/Plan All Active Problems Pancreatitis, acute (Acute) Chest pain (Acute) 1. Acute recurrent pancreatitis, suspected gallstone pancreatitis-General surgery following. No plans for surgical intervention given ongoing pain. PRN pain regimen. PRN antiemetics. N.p.o. except sips and chips. Per surgery, this may be a long process before symptom improvement. PICC line placed for TPN. Lipase greater than 20,000 on admission. Now normal. Encourage ambulation. Patient had increased pain overnight. WBC increased. IV Zosyn initiated. Repeat CT abdomen and pelvis pending. 2. CAD with history of stent-aspirin, Plavix on hold. Continue metoprolol. 3. GERD-continue PPI. 4. Hyperlipidemia-continue statin. 5. Type 2 diabetes mellitus-hold oral regimen. Accu-Cheks with sliding scale insulin. 6. BPH- continue flomax. DVT prophylaxis-Lovenox subcu This patient was seen by BENEDICT Zuleta under the supervision of Dr. Jessica. <Cornelio Jessica - Last Filed: 09/11/19 14:55> Subjective: Seen and examined. Patient had pain intermittently at night 5-7 but got severe in the morning that woke him up. Patient passed gas. No fever or chills. - Physical Exam Vitals/I&O's: Vital Signs Temp Pulse Resp BP Pulse Ox 98.4 F 87 18 152/78 H 95 09/11/19 13:46 09/11/19 13:46 09/11/19 13:46 09/11/19 13:46 09/11/19 13:46 Oxygen Delivery Method Room Air Weight: 259 lb 11.272 oz Body Mass Index (BMI) 36.2 Intake and Output for Last 24 Hours 09/09/19 09/10/19 09/11/19 23:59 23:59 23:59 Intake Total 2218.65 / 2218.65 2878 / 2878 2525.04 / 2525.04 Output Total 995 / 1345 1950 / 1950 550 / 550 Balance 1223.65 / 873.65 928 / 928 1974. General: Alert, Oriented x3, Cooperative HEENT: Atraumatic, PERRLA, EOMI, Normocephalic Neck: Supple, No JVD, Negative Carotid Bruits Lungs: Diminished - Air entry diminished in bilateral lung bases, left more than right Cardiovascular: Regular rate, Regular Rhythm, Normal S1, Normal S2, No murmurs Abdomen: Non-Distended, Hypoactive Bowel Sounds, Obese, Tender - Epigastric and umbilical region Distention has improved. Extremities: No edema, Capillary Refill Less than 3 Seconds Skin: No rashes, No breakdown Musculoskeletal: No Tenderness to Palpation of Joints or Extremities Neurological: Cranial nerves II-XII grossly intact Psych/Mental Status: Normal Affect, Appropriate Laboratory Results 09/11/19 05:21: WBC 15.8 H, RBC 4.75, Hgb 13.3, Hct 40.5, MCV 85.3, MCH 28.0, MCHC 32.8, RDW Std Deviation 43.4, RDW Coeff of Mirian 14.0, Plt Count 183, MPV 11.1 09/11/19 05:21: Sodium 135 L, Potassium 3.8, Chloride 104, Carbon Dioxide 25.0, Anion Gap 6, BUN 11, Creatinine 0.53 L, Estim Creat Clear Calc 148.00, Est GFR (MDRD) Af Amer 201, Est GFR (MDRD) Non-Af 166, BUN/Creatinine Ratio 20.9 H, Glucose 141 H, Calcium 7.6 L, Magnesium 2.2, Total Bilirubin 1.60 H, AST 104 H, ALT 240 H, Alkaline Phosphatase 93, Total Protein 5.3 L, Albumin 2.0 L, Globulin 3.3, Albumin/Globulin Ratio 0.6 L 09/11/19 05:21: Phosphorus 2.5 09/11/19 05:21: GGT 180 H, C-React Prot Ext Range 151.00 H 09/11/19 08:25: PT 13.8, INR 1.1 Current Medications Al Hydroxide/Mg Hydroxide (Mylanta Ii) 15 ml PO Q6H PRN PRN PRN Reason: INDIGESTION Last Admin: 09/10/19 11:45 Dose: 15 ml Documented by: Bisacodyl (Dulcolax) 10 mg RECTAL DAILY [facility] Last Admin: 09/11/19 09:43 Dose: Not Given Documented by: Dextrose (D50w Syringe) 0 gm IV X1 PRN; Protocol PRN Reason: Hypoglycemia Enoxaparin Sodium (Lovenox) 40 mg SC DAILY [facility] Last Admin: 09/11/19 12:13 Dose: 40 mg Documented by: Glucagon () 1 mg IM .X1 PRN PRN Reason: Hypoglycemia Heparin Sodium (Beef Lung) () 50 units IV UD PRN PRN Reason: PICC Line Heparin Flush Hydromorphone HCl (Dilaudid Inj) 0.5 - 1 mg IV Q2H PRN PRN PRN Reason: Pain Score 4-10/10 Last Admin: 09/11/19 13:53 Dose: 1 mg Documented by: Hydromorphone HCl (Dilaudid Inj) 0.5 - 1 mg IV Q2H PRN PRN PRN Reason: Pain Score 4-10/10 Pantoprazole Sodium 40 mg/ (Sodium Chloride) 110 mls @ 330 mls/hr IV Q12 [facility] Last Admin: 09/11/19 13:41 Dose: 330 mls/hr Documented by: Sodium Chloride () 250 mls @ 30 mls/hr IV .Q8H20M PRN PRN Reason: Saline Flush Last Infusion: 09/11/19 12:30 Dose: 0 mls/hr Documented by: Multivitamins 10 ml/ Chromium/Copper/Manganese/Seleni/Zn 1 ml/ Amino Acids/Electrolytes 2,011 mls @ 84 mls/hr IV .[id number] [facility] Stop: 09/11/19 15:48 Last Infusion: 09/11/19 12:30 Dose: 84 mls/hr Documented by: Piperacillin Sod/Tazobactam (Sod 3.375 gm/ Sodium Chloride) 50 mls @ 12.5 mls/hr IV Q8 [facility] Last Infusion: 09/11/19 12:30 Dose: 12.5 mls/hr Documented by: Multivitamins 10 ml/ Chromium/Copper/Manganese/Seleni/Zn 1 ml/ Folic Acid 1 mg/ Amino Acids/Electrolytes 2,011 mls @ 84 mls/hr IV .[id number] [facility] Stop: 09/12/19 15:48 Metoprolol Tartrate (Lopressor (Beta Lory)) 12.5 mg PO BID [facility] Last Admin: 09/11/19 12:11 Dose: 12.5 mg Documented by: Ondansetron HCl (Zofran) 4 mg IV Q6H PRN PRN PRN Reason: NAUSEA/VOMITING Last Admin: 09/11/19 10:44 Dose: 4 mg Documented by: Promethazine HCl (Phenergan) 12.5 mg IV Q6H PRN PRN PRN Reason: NAUSEA/VOMITING Last Admin: 09/11/19 07:45 Dose: 12.5 mg Documented by: Simethicone (Mylicon) 80 mg PO TIDPC [facility] Last Admin: 09/11/19 12:13 Dose: 80 mg Documented by: Sodium Chloride () 10 - 40 ml IV UD PRN PRN Reason: SALINE FLUSH Last Admin: 09/11/19 13:53 Dose: 10 ml Documented by: Sodium Chloride () 10 - 40 ml IV UD PRN PRN Reason: Open End PICC Flush Sodium Chloride (0.9% Nacl (Sterile) Posiflush) 10 - 40 ml IV UD PRN PRN Reason: Port access or dressing change Tamsulosin HCl (Flomax) 0.4 mg PO BID [facility] Last Admin: 09/11/19 12:11 Dose: 0.4 mg Documented by: Assessment/Plan This patient was seen in conjunction with TRANSITION SPECIALISTMichelle. I have independently interviewed and examined the patient and reviewed pertinent history, examination findings, laboratory and plan of management. I have reviewed the note and agree with the documented findings with the few additional points. In brief, patient is admitted for acute recurrent pancreatitis, suspected gallstone pancreatitis. Patient had serial CT scan during hospital. CT scan with oral and IV contrast done today shows progression of pancreatitis with inflammation on anterior pararenal spaces bilaterally, and fluid in right paracolic gutter, left upper quadrant with diffuse enlargement with peripancreatic edema. There is progressive increase in ALT and AST, total bilirubin although initially it improved. Leukocytosis also improved from 22.6-12.3 and then increased to 15.8. There is slight increase in left pleural effusion with consolidation. Overall suggestive of progression of severe pancreatitis therefore started on IV antibiotics, Zosyn. Discussed with Dr. Bear. I talked to the patient and gave clinical update. We agreed that patient needs tertiary care center and preferred [facility] for transfer. Transfer line called. Patient is accepted. Please see discharge summary for complete information. I have discussed my assessment with TRANSITION SPECIALISTMichelle and orders have been reviewed.
--- NOTE | 2019-09-11 12:00 | PCM.PN.SRG ---
Patient Problems: Active and Suspected Problems Pancreatitis, acute (Acute) Subjective: Patient's pain has not really changed. He has only small amounts of flatus. Most of his discomfort is epigastric in nature and in the left upper quadrant area. Objective: Distended abdomen. No rebound guarding or peritoneal signs are identified. Tenderness mostly epigastric to palpation. - Physical Exam Vitals/I&O's: Vital Signs Temp Pulse Resp BP Pulse Ox 98.1 F 94 18 97/58 L 99 09/11/19 08:12 09/11/19 08:12 09/11/19 08:12 09/11/19 08:12 09/11/19 08:12 Oxygen Delivery Method Room Air Weight: 259 lb 11.272 oz Body Mass Index (BMI) 36.2 Intake and Output for Last 24 Hours 09/09/19 09/10/19 09/11/19 23:59 23:59 23:59 Intake Total 2218.65 / 2218.65 2878 / 2878 2057.85 / 2057.85 Output Total 995 / 1345 1950 / 1950 200 / 200 Balance 1223.65 / 873.65 928 / 928 1857.85 / 1857.85 Laboratory Results 09/11/19 05:21: WBC 15.8 H, RBC 4.75, Hgb 13.3, Hct 40.5, MCV 85.3, MCH 28.0, MCHC 32.8, RDW Std Deviation 43.4, RDW Coeff of Mirian 14.0, Plt Count 183, MPV 11.1 09/11/19 05:21: Sodium 135 L, Potassium 3.8, Chloride 104, Carbon Dioxide 25.0, Anion Gap 6, BUN 11, Creatinine 0.53 L, Estim Creat Clear Calc 148.00, Est GFR (MDRD) Af Amer 201, Est GFR (MDRD) Non-Af 166, BUN/Creatinine Ratio 20.9 H, Glucose 141 H, Calcium 7.6 L, Magnesium 2.2, Total Bilirubin 1.60 H, AST 104 H, ALT 240 H, Alkaline Phosphatase 93, Total Protein 5.3 L, Albumin 2.0 L, Globulin 3.3, Albumin/Globulin Ratio 0.6 L 09/11/19 05:21: Phosphorus 2.5 09/11/19 05:21: GGT 180 H, C-React Prot Ext Range 151.00 H 09/11/19 08:25: PT 13.8, INR 1.1 Current Medications Al Hydroxide/Mg Hydroxide (Mylanta Ii) 15 ml PO Q6H PRN PRN PRN Reason: INDIGESTION Last Admin: 09/10/19 11:45 Dose: 15 ml Documented by: Bisacodyl (Dulcolax) 10 mg RECTAL DAILY [facility] Last Admin: 09/11/19 09:43 Dose: Not Given Documented by: Dextrose (D50w Syringe) 0 gm IV X1 PRN; Protocol PRN Reason: Hypoglycemia Enoxaparin Sodium (Lovenox) 40 mg SC DAILY [facility] Last Admin: 09/10/19 09:41 Dose: 40 mg Documented by: Glucagon () 1 mg IM .X1 PRN PRN Reason: Hypoglycemia Heparin Sodium (Beef Lung) () 50 units IV UD PRN PRN Reason: PICC Line Heparin Flush Hydromorphone HCl (Dilaudid Inj) 0.5 - 1 mg IV Q2H PRN PRN PRN Reason: Pain Score 4-10/10 Last Admin: 09/11/19 08:05 Dose: 1 mg Documented by: Hydromorphone HCl (Dilaudid Inj) 0.5 - 1 mg IV Q2H PRN PRN PRN Reason: Pain Score 4-10/10 Pantoprazole Sodium 40 mg/ (Sodium Chloride) 110 mls @ 330 mls/hr IV Q12 [facility] Last Infusion: 09/10/19 22:14 Dose: Infused Documented by: Sodium Chloride () 250 mls @ 30 mls/hr IV .Q8H20M PRN PRN Reason: Saline Flush Last Infusion: 09/11/19 09:44 Dose: 0 mls/hr Documented by: Multivitamins 10 ml/ Chromium/Copper/Manganese/Seleni/Zn 1 ml/ Amino Acids/Electrolytes 2,011 mls @ 84 mls/hr IV .[id number] [facility] Stop: 09/11/19 15:48 Last Infusion: 09/11/19 09:44 Dose: 84 mls/hr Documented by: Piperacillin Sod/Tazobactam (Sod 3.375 gm/ Sodium Chloride) 50 mls @ 12.5 mls/hr IV Q8 [facility] Last Admin: 09/11/19 09:43 Dose: 12.5 mls/hr Documented by: Multivitamins 10 ml/ Chromium/Copper/Manganese/Seleni/Zn 1 ml/ Folic Acid 1 mg/ Amino Acids/Electrolytes 2,011 mls @ 84 mls/hr IV .[id number] [facility] Stop: 09/12/19 15:48 Metoprolol Tartrate (Lopressor (Beta Lory)) 12.5 mg PO BID [facility] Last Admin: 09/10/19 21:49 Dose: 12.5 mg Documented by: Ondansetron HCl (Zofran) 4 mg IV Q6H PRN PRN PRN Reason: NAUSEA/VOMITING Last Admin: 09/11/19 10:44 Dose: 4 mg Documented by: Promethazine HCl (Phenergan) 12.5 mg IV Q6H PRN PRN PRN Reason: NAUSEA/VOMITING Last Admin: 09/11/19 07:45 Dose: 12.5 mg Documented by: Simethicone (Mylicon) 80 mg PO TIDPC [facility] Last Admin: 09/11/19 08:05 Dose: 80 mg Documented by: Sodium Chloride () 10 - 40 ml IV UD PRN PRN Reason: SALINE FLUSH Last Admin: 09/11/19 10:43 Dose: 10 ml Documented by: Sodium Chloride () 10 - 40 ml IV UD PRN PRN Reason: Open End PICC Flush Sodium Chloride (0.9% Nacl (Sterile) Posiflush) 10 - 40 ml IV UD PRN PRN Reason: Port access or dressing change Tamsulosin HCl (Flomax) 0.4 mg PO BID [facility] Last Admin: 09/10/19 21:49 Dose: 0.4 mg Documented by: Medical Necessity - Tobacco Use Smoking Status: Former smoker Assessment/Plan All Active Problems Pancreatitis, acute (Acute) Chest pain (Acute) Although the CAT scan has not been read I have reviewed this and compared it to his previous CAT scan I think there is a clear progression of his pancreatitis and the pancreas itself is not as well visualized as it once was on his previous CAT scan on the . The gallbladder itself does not look edematous stones are seen but the wall appears to be about the same as it has since his admission. And I really do not think we are dealing with acute cholecystitis at this point now but progression of his pancreatitis is most likely. Given this finding and the fact that his white count is elevated this calcium is starting to come down I think it is best that he be transferred to a tertiary referral center. I have called the hospitalist and discussed this with him and they are going to arrange transfer. Inpatient E&M: [id number] Subs Hosp L2
[2019-09-11 12:11] VITALS: PULSE 94
[2019-09-11] MEDS: Tamsulosin HCl 0.4 MG Capsule PO (12:11)
[2019-09-11] MEDS: Metoprolol Tartrate 25 MG Tablet 12.5 MG PO (12:11)
[2019-09-11] MEDS: Enoxaparin 40 MG/0.4 ML Syringe SC (12:13)
--- NOTE | 2019-09-11 12:33 | NURSING ---
attempted piv restart x1 for iv protonix, unsuccessful, charge nurse notified to attempt to start
[2019-09-11 13:46] VITALS: BP 152/78; PULSE 87; RESP 18; TEMP 36.9; O2SAT 95
--- NOTE | 2019-09-11 13:51 | DS.PCM_ITS ---
<Michelle Garcia - Last Filed: 09/11/19 13:59> Discharge Date and Diagnosis Date of Admission: 09/05/19 Date of Discharge: 09/11/19 - Primary Discharge Diagnosis Active and Suspected Problems 1. Acute recurrent pancreatitis, suspected gallstone pancreatitis 2. CAD with history of stent 3. GERD 4. Hyperlipidemia 5. Type 2 diabetes mellitus 6. BPH - Secondary Discharge Diagnosis Chronic Problems Hyperlipidemia (Chronic) Coronary artery disease (Chronic) History of myocardial infarct at age less than 60 years (Chronic) Hospital Course and Treatment Imaging Results: Diagnostic Data Abdomen Ultrasound 09/05/19 08:25 IMPRESSION: Fatty infiltration of the liver. Multiple gallstones. Electronically Signed: Balwinder Clemens, at 10:13 EDT , Service support , Abdomen X-Ray 09/10/19 20:50 IMPRESSION: Small left-sided pleural effusion. Diffuse degenerative changes of the thoracic spine. Electronically Signed: Cosmo Wadsworth MD at 21:19 EDT , Service support , Abdomen/Pelvis CT 09/11/19 08:41 IMPRESSION: Findings in keeping with acute pancreatitis. Since prior study, there has been progressive inflammatory changes in the peripancreatic bed as well as the anterior pararenal spaces bilaterally. Electronically Signed: Balwinder Clemens, at 12:24 EDT , Service support , Dr. Bear- General surgery Operations: None Procedures: None Summary of Care Provided: The patient is a 63 year old M admitted 09/05/2019 due to abdominal pain. 1. Acute recurrent pancreatitis, suspected gallstone pancreatitis-General surgery following. No plans for surgical intervention given ongoing pain. N.p.o. except sips and chips. PICC line placed for TPN. Lipase greater than 20,000 on admission. Now normal. Patient had increased pain overnight. WBC increased. IV Zosyn initiated. Repeat CT abdomen and pelvis demonstrated progressive inflammatory changes in the peripancreatic bed as well as the anterior pararenal spaces bilaterally. Given worsening of pancreatitis, patient transferred to [facility] for further evaluation and management. 2. CAD with history of stent-aspirin, Plavix on hold. Continue metoprolol. 3. GERD-continue PPI. 4. Hyperlipidemia-continue statin. 5. Type 2 diabetes mellitus-hold oral regimen. Accu-Cheks with sliding scale insulin. 6. BPH- continue flomax. General: Alert, Oriented x3, Cooperative HEENT: Atraumatic, PERRLA, EOMI, Normocephalic Neck: Supple, No JVD, Negative Carotid Bruits Lungs: Clear to auscultation, Diminished Cardiovascular: Regular rate, Regular Rhythm, Normal S1, Normal S2, No murmurs Abdomen: Bowel Sounds Present, Soft, Non-Distended, Obese, Tender Extremities: No clubbing, No cyanosis, No edema, Capillary Refill Less than 3 Seconds Skin: No rashes, No breakdown Musculoskeletal: No Tenderness to Palpation of Joints or Extremities Neurological: Cranial nerves II-XII grossly intact, Neuro grossly intact Psych/Mental Status: Normal Affect, Appropriate Patient seen and examined prior to discharge. Physical assessment as noted above. Patient is stable for discharge with follow up recommendations as noted above. This patient was seen by BENEDICT Zuleta under the supervision of Dr. Jessica. - Physical Exam Vitals/I&O's: Vital Signs Temp Pulse Resp BP Pulse Ox 98.4 F 87 18 152/78 H 95 09/11/19 13:46 09/11/19 13:46 09/11/19 13:46 09/11/19 13:46 09/11/19 13:46 Oxygen Delivery Method Room Air Weight: 259 lb 11.272 oz Body Mass Index (BMI) 36.2 Intake and Output for Last 24 Hours 09/09/19 09/10/19 09/11/19 23:59 23:59 23:59 Intake Total 2218.65 / 2218.65 2878 / 2878 2525.04 / 2525.04 Output Total 995 / 1345 1950 / 1950 550 / 550 Balance 1223.65 / 873.65 928 / 928 1975.1974. Laboratory Results 09/11/19 05:21: WBC 15.8 H, RBC 4.75, Hgb 13.3, Hct 40.5, MCV 85.3, MCH 28.0, MCHC 32.8, RDW Std Deviation 43.4, RDW Coeff of Mirian 14.0, Plt Count 183, MPV 11.1 09/11/19 05:21: Sodium 135 L, Potassium 3.8, Chloride 104, Carbon Dioxide 25.0, Anion Gap 6, BUN 11, Creatinine 0.53 L, Estim Creat Clear Calc 148.00, Est GFR (MDRD) Af Amer 201, Est GFR (MDRD) Non-Af 166, BUN/Creatinine Ratio 20.9 H, Glucose 141 H, Calcium 7.6 L, Magnesium 2.2, Total Bilirubin 1.60 H, AST 104 H, ALT 240 H, Alkaline Phosphatase 93, Total Protein 5.3 L, Albumin 2.0 L, Globulin 3.3, Albumin/Globulin Ratio 0.6 L 09/11/19 05:21: Phosphorus 2.5 09/11/19 05:21: GGT 180 H, C-React Prot Ext Range 151.00 H 09/11/19 08:25: PT 13.8, INR 1.1 Current Medications Al Hydroxide/Mg Hydroxide (Mylanta Ii) 15 ml PO Q6H PRN PRN PRN Reason: INDIGESTION Last Admin: 09/10/19 11:45 Dose: 15 ml Documented by: Bisacodyl (Dulcolax) 10 mg RECTAL DAILY [facility] Last Admin: 09/11/19 09:43 Dose: Not Given Documented by: Dextrose (D50w Syringe) 0 gm IV X1 PRN; Protocol PRN Reason: Hypoglycemia Enoxaparin Sodium (Lovenox) 40 mg SC DAILY [facility] Last Admin: 09/11/19 12:13 Dose: 40 mg Documented by: Glucagon () 1 mg IM .X1 PRN PRN Reason: Hypoglycemia Heparin Sodium (Beef Lung) () 50 units IV UD PRN PRN Reason: PICC Line Heparin Flush Hydromorphone HCl (Dilaudid Inj) 0.5 - 1 mg IV Q2H PRN PRN PRN Reason: Pain Score 4-10/10 Last Admin: 09/11/19 08:05 Dose: 1 mg Documented by: Hydromorphone HCl (Dilaudid Inj) 0.5 - 1 mg IV Q2H PRN PRN PRN Reason: Pain Score 4-10/10 Pantoprazole Sodium 40 mg/ (Sodium Chloride) 110 mls @ 330 mls/hr IV Q12 [facility] Last Admin: 09/11/19 13:41 Dose: 330 mls/hr Documented by: Sodium Chloride () 250 mls @ 30 mls/hr IV .Q8H20M PRN PRN Reason: Saline Flush Last Infusion: 09/11/19 12:30 Dose: 0 mls/hr Documented by: Multivitamins 10 ml/ Chromium/Copper/Manganese/Seleni/Zn 1 ml/ Amino Acids/Electrolytes 2,011 mls @ 84 mls/hr IV .[id number] [facility] Stop: 09/11/19 15:48 Last Infusion: 09/11/19 12:30 Dose: 84 mls/hr Documented by: Piperacillin Sod/Tazobactam (Sod 3.375 gm/ Sodium Chloride) 50 mls @ 12.5 mls/hr IV Q8 [facility] Last Infusion: 09/11/19 12:30 Dose: 12.5 mls/hr Documented by: Multivitamins 10 ml/ Chromium/Copper/Manganese/Seleni/Zn 1 ml/ Folic Acid 1 mg/ Amino Acids/Electrolytes 2,011 mls @ 84 mls/hr IV .[id number] [facility] Stop: 09/12/19 15:48 Metoprolol Tartrate (Lopressor (Beta Lory)) 12.5 mg PO BID [facility] Last Admin: 09/11/19 12:11 Dose: 12.5 mg Documented by: Ondansetron HCl (Zofran) 4 mg IV Q6H PRN PRN PRN Reason: NAUSEA/VOMITING Last Admin: 09/11/19 10:44 Dose: 4 mg Documented by: Promethazine HCl (Phenergan) 12.5 mg IV Q6H PRN PRN PRN Reason: NAUSEA/VOMITING Last Admin: 09/11/19 07:45 Dose: 12.5 mg Documented by: Simethicone (Mylicon) 80 mg PO TIDPC [facility] Last Admin: 09/11/19 12:13 Dose: 80 mg Documented by: Sodium Chloride () 10 - 40 ml IV UD PRN PRN Reason: SALINE FLUSH Last Admin: 09/11/19 10:43 Dose: 10 ml Documented by: Sodium Chloride () 10 - 40 ml IV UD PRN PRN Reason: Open End PICC Flush Sodium Chloride (0.9% Nacl (Sterile) Posiflush) 10 - 40 ml IV UD PRN PRN Reason: Port access or dressing change Tamsulosin HCl (Flomax) 0.4 mg PO BID [facility] Last Admin: 09/11/19 12:11 Dose: 0.4 mg Documented by: Home Medications: Medications to take at Discharge Aspirin [Aspirin, Baby] 81 mg PO DAILY@0800 08/17/15 Metoprolol Tartrate [Lopressor (Beta Lory)] 12.5 mg PO BID 08/17/15 Omeprazole [Prilosec] 40 mg PO DAILY 08/17/15 Pitavastatin Calcium [Livalo] 1 mg PO DAILY 08/17/15 Tamsulosin HCl [Flomax] 0.4 mg PO DAILY 08/17/15 Fluticasone 0.05% [Flonase Nasal Vincent] 2 spray NASAL DAILY 01/28/17 Loratadine/Pseudo 240/10 [Claritin-D 24 Hr] 1 tablet PO DAILY 01/28/17 Nitroglycerin [Nitrostat] 0.3 mg SL PRN PRN 01/28/17 Clopidogrel Bisulfate [Plavix] 75 mg PO DAILY 09/05/19 Ezetimibe [Zetia] 10 mg PO DAILY 09/05/19 Metformin HCl 500 mg PO DAILY 09/05/19 Primary Care Physician: Fidel Cronin MD [Primary Care Provider] - Disposition: Acute care Hospital Minutes spent on discharge:: 35 Patient Condition:: Fair Medical Necessity - Tobacco Use Smoking Status: Former smoker Meaningful Use Info Meaningful Use Diagnoses (Choose all that apply): None applicable <Cornelio Jessica - Last Filed: 09/11/19 15:09> Discharge Date and Diagnosis - Secondary Discharge Diagnosis Chronic Problems Hyperlipidemia (Chronic) Coronary artery disease (Chronic) History of myocardial infarct at age less than 60 years (Chronic) Hospital Course and Treatment Imaging Results: 09/11/19 08:41 CT Abd [Abdomen/Pelvis WITH Contrast] [CT] Routine Summary of Care Provided: This patient was seen in conjunction with LEAD IOS DEVELOPERMichelle. I have independently interviewed and examined the patient and reviewed pertinent history, examination findings, laboratory and plan of management. I have reviewed the note and agree with the documented findings with the few additional points. In brief, patient is 63 gentleman admitted for third episode of abdominal pain in the last 3 years. This time clinical and biochemical evidence of acute pancreatitis. Leukocytosis 22,000. Lipase 20,000, ALT and AST elevated in 100s. Total bili normal. Albumin 3.8. Lactic acid elevated. Calcium 8.5. CT abdomen without oral and IV contrast shows peripancreatic edema suggesting acute pancreatitis. Right upper quadrant sonogram shows which shows multiple gallstones. CBD 5.2 mm. No pericholecystic fluid. GB wall 2.0 mm. Initially, patient was managed conservatively with IV fluids, n.p.o. and transient improvement in transaminases then worsened. Initially lap raya was also planned but it is postponed because of severe pancreatitis. Somehow patient showed features of initial improvement and then worsened with progression of pain, abdominal distention. Serial CT scans were done. CT scan was done today and compared with previous ones. It shows progression of pancreatitis with inflammation progressing to bilateral anterior renal fascia, fluid tracking down the right paracolic gutter, left upper quadrant, consolidation in the left lung base along with small pleural effusion and atelectasis. Patient was started on TPN during hospital course. Patient did not had fever or chills. Discussed with Dr. Bear and started on IV antibiotic Zosyn. Leukocytosis is going up, last one 16,000 with initial improvement to 12,000 from 22.6 thousand. There is hypocalcemia but corrected calcium is 9.2. I talked to the patient and gave clinical update. We agreed that patient needs tertiary care center and preferred [facility] for transfer. Transfer line called. Patient is accepted and awaiting transfer to [facility]. Other comorbidities include coronary artery disease, dyslipidemia: Home medications reconciliation done. Lipid profile TC 231, LDL 164, HDL 37. Currently patient home medications are on hold as patient is n.p.o. I have discussed my assessment with LEAD IOS DEVELOPERMichelle and orders have been reviewed. Total time spent, exact 35 minutes on coordination of care with nurses and ancillary staff, review of imaging and blood test and discussion with the patient and his and transfer call. Subjective: Please see progress note for comprehensive physical exam findings of same date - Physical Exam Vitals/I&O's: Vital Signs Temp Pulse Resp BP Pulse Ox 98.4 F 87 18 152/78 H 95 09/11/19 13:46 09/11/19 13:46 09/11/19 13:46 09/11/19 13:46 09/11/19 13:46 Oxygen Delivery Method Room Air Weight: 259 lb 11.272 oz Body Mass Index (BMI) 36.2 Intake and Output for Last 24 Hours 09/09/19 09/10/19 09/11/19 23:59 23:59 23:59 Intake Total 2218.65 / 2218.65 2878 / 2878 2525.04 / 2525.04 Output Total 995 / 1345 1950 / 1950 550 / 550 Balance 1223.65 / 873.65 928 / 928 1975.04 / Laboratory Results 09/11/19 05:21: WBC 15.8 H, RBC 4.75, Hgb 13.3, Hct 40.5, MCV 85.3, MCH 28.0, MCHC 32.8, RDW Std Deviation 43.4, RDW Coeff of Mirian 14.0, Plt Count 183, MPV 11.1 09/11/19 05:21: Sodium 135 L, Potassium 3.8, Chloride 104, Carbon Dioxide 25.0, Anion Gap 6, BUN 11, Creatinine 0.53 L, Estim Creat Clear Calc 148.00, Est GFR (MDRD) Af Amer 201, Est GFR (MDRD) Non-Af 166, BUN/Creatinine Ratio 20.9 H, Glucose 141 H, Calcium 7.6 L, Magnesium 2.2, Total Bilirubin 1.60 H, AST 104 H, ALT 240 H, Alkaline Phosphatase 93, Total Protein 5.3 L, Albumin 2.0 L, Globulin 3.3, Albumin/Globulin Ratio 0.6 L 09/11/19 05:21: Phosphorus 2.5 09/11/19 05:21: GGT 180 H, C-React Prot Ext Range 151.00 H 09/11/19 08:25: PT 13.8, INR 1.1 Current Medications Al Hydroxide/Mg Hydroxide (Mylanta Ii) 15 ml PO Q6H PRN PRN PRN Reason: INDIGESTION Last Admin: 09/10/19 11:45 Dose: 15 ml Documented by: Bisacodyl (Dulcolax) 10 mg RECTAL DAILY [facility] Last Admin: 09/11/19 09:43 Dose: Not Given Documented by: Dextrose (D50w Syringe) 0 gm IV X1 PRN; Protocol PRN Reason: Hypoglycemia Enoxaparin Sodium (Lovenox) 40 mg SC DAILY [facility] Last Admin: 09/11/19 12:13 Dose: 40 mg Documented by: Glucagon () 1 mg IM .X1 PRN PRN Reason: Hypoglycemia Heparin Sodium (Beef Lung) () 50 units IV UD PRN PRN Reason: PICC Line Heparin Flush Hydromorphone HCl (Dilaudid Inj) 0.5 - 1 mg IV Q2H PRN PRN PRN Reason: Pain Score 4-10/10 Last Admin: 09/11/19 13:53 Dose: 1 mg Documented by: Hydromorphone HCl (Dilaudid Inj) 0.5 - 1 mg IV Q2H PRN PRN PRN Reason: Pain Score 4-10/10 Pantoprazole Sodium 40 mg/ (Sodium Chloride) 110 mls @ 330 mls/hr IV Q12 [facility] Last Admin: 09/11/19 13:41 Dose: 330 mls/hr Documented by: Sodium Chloride () 250 mls @ 30 mls/hr IV .Q8H20M PRN PRN Reason: Saline Flush Last Infusion: 09/11/19 12:30 Dose: 0 mls/hr Documented by: Multivitamins 10 ml/ Chromium/Copper/Manganese/Seleni/Zn 1 ml/ Amino Acids/Electrolytes 2,011 mls @ 84 mls/hr IV .[id number] [facility] Stop: 09/11/19 15:48 Last Infusion: 09/11/19 12:30 Dose: 84 mls/hr Documented by: Piperacillin Sod/Tazobactam (Sod 3.375 gm/ Sodium Chloride) 50 mls @ 12.5 mls/hr IV Q8 [facility] Last Infusion: 09/11/19 12:30 Dose: 12.5 mls/hr Documented by: Multivitamins 10 ml/ Chromium/Copper/Manganese/Seleni/Zn 1 ml/ Folic Acid 1 mg/ Amino Acids/Electrolytes 2,011 mls @ 84 mls/hr IV .[id number] [facility] Stop: 09/12/19 15:48 Metoprolol Tartrate (Lopressor (Beta Lory)) 12.5 mg PO BID [facility] Last Admin: 09/11/19 12:11 Dose: 12.5 mg Documented by: Ondansetron HCl (Zofran) 4 mg IV Q6H PRN PRN PRN Reason: NAUSEA/VOMITING Last Admin: 09/11/19 10:44 Dose: 4 mg Documented by: Promethazine HCl (Phenergan) 12.5 mg IV Q6H PRN PRN PRN Reason: NAUSEA/VOMITING Last Admin: 09/11/19 07:45 Dose: 12.5 mg Documented by: Simethicone (Mylicon) 80 mg PO TIDPC [facility] Last Admin: 09/11/19 12:13 Dose: 80 mg Documented by: Sodium Chloride () 10 - 40 ml IV UD PRN PRN Reason: SALINE FLUSH Last Admin: 09/11/19 13:53 Dose: 10 ml Documented by: Sodium Chloride () 10 - 40 ml IV UD PRN PRN Reason: Open End PICC Flush Sodium Chloride (0.9% Nacl (Sterile) Posiflush) 10 - 40 ml IV UD PRN PRN Reason: Port access or dressing change Tamsulosin HCl (Flomax) 0.4 mg PO BID [facility] Last Admin: 09/11/19 12:11 Dose: 0.4 mg Documented by: Inpatient E&M: [id number] Disch Hosp
--- NOTE | 2019-09-11 14:42 | NURSING ---
report called to Glenny MONROY at [facility]
--- NOTE | 2019-09-11 15:21 | NURSING ---
[facility] called [facility] floor number [phone]
--- NOTE | 2019-09-11 15:41 | NURSING ---
report given to stefania santos at [facility]
== END 2019-09-11 15:48 | disposition short-term general hospital (02) | DRG 444 ==
LOC: ED 04:04 → PCU 04:48
PROVIDERS: Family Medicine; Nurse Practitioner Family; Physician Assistant; Admitting Provider Family Medicine; Emergency Provider Emergency Medicine; PCP Internal Medicine; Visit Provider Internal Medicine
DX: K80.20 Calculus of gallbladder without cholecystitis without obstruction (principal); K85.10 Biliary acute pancreatitis without necrosis or infection; K86.1 Other chronic pancreatitis; I25.10 Atherosclerotic heart disease of native coronary artery without angina pectoris; K21.9 Gastro-esophageal reflux disease without esophagitis; I10 Essential (primary) hypertension; E78.5 Hyperlipidemia, unspecified; E11.9 Type 2 diabetes mellitus without complications; N40.0 Benign prostatic hyperplasia without lower urinary tract symptoms; I25.2 Old myocardial infarction; Z87.891 Personal history of nicotine dependence; Q63.1 Lobulated, fused and horseshoe kidney
CPT/HCPCS: 36415; 36569; 74019; 74176; 74177; 76705; 80048; 80053; 80061; 80076; 81001; 82962; 82977; 83605; 83690; 83735; 84100; 85025; 85027; 85610; 86140; 97802; 97803; 99251; 99284; J7030; J7050; J7120; Q9967; A4216; G0463; J2405; J7799

== ENCOUNTER → 2020-01-15 20:00 | Outpatient (CLI) | payer MEDICARE, SELFPAY ==
[2019-11-01 08:31] VITALS: BMI 36.2
== END ==
PROVIDERS: PCP Internal Medicine; Referring Provider Nurse Practitioner; Visit Provider Nurse Practitioner
DX: G47.33 Obstructive sleep apnea (adult) (pediatric) (principal)
CPT/HCPCS: 95811

== ENCOUNTER 2021-11-30 13:13 | Emergency (ER) | payer MEDICARE, SELFPAY ==
[2021-11-30 13:14] VITALS: BP 157/115; PULSE 120; RESP 18; TEMP 37.1; O2SAT 100; BMI 35.3
--- NOTE | 2021-11-30 13:36 | EKG12_ITS ---
Test Reason : Blood Pressure : / mmHG Vent. Rate : 117 BPM Atrial Rate : 117 BPM P-R Int : 166 ms QRS Dur : 136 ms QT Int : 340 ms P-R-T Axes : 049 -42 017 degrees QTc Int : 474 ms Sinus tachycardia Left axis deviation Right bundle branch block Abnormal ECG Confirmed by MYKEL VARELA, LORENA ([id number]), editor trade journal KENRICK EDDY ([id number]) on 12/02/2021 9:47:18 AM Referred By: TREY Confirmed By:LORENA HOGUE MD
--- NOTE | 2021-11-30 13:37 | EDS_ITS ---
HPI History of Present Illness Chief Complaint: Abd Pain Informant: patient Onset/Context/Timing Onset: Yesterday Context: Gradual Onset Current Severity: Moderate Maximum Severity: Moderate Narrative Narrative: Patient presents secondary to epigastric abdominal pain with nausea. Symptoms started yesterday. He also reports difficulty urinating and having frequent urination. He does not feel like he is able to empty his bladder. He does report some constipation. No fever or chills. No vomiting. [facility] Medical History (Updated 11/30/21 @ 16:[address] Tiffanie Loredo MD) Hay fever Heart attack Heart disease Hemorrhoids HTN (hypertension) Knee pain Pancreatitis Shoulder pain Home Medications aspirin 81 mg chewable tablet 81 mg PO DAILY@0800 08/17/15 [History Last Taken Unknown] metoprolol tartrate 25 mg tablet 12.5 mg PO BID 08/17/15 [History Last Taken Unknown] omeprazole 40 mg capsule,delayed release 40 mg PO DAILY 08/17/15 [History Last Taken Unknown] pitavastatin calcium 1 mg tablet 1 mg PO DAILY 08/17/15 [History Last Taken Unknown] tamsulosin 0.4 mg capsule 0.4 mg PO DAILY 08/17/15 [History Last Taken Unknown] fluticasone propionate 50 mcg/actuation nasal spray,suspension 2 spray NASAL DAILY 01/28/17 [History Last Taken Unknown] loratadine-pseudoephedrine ER 10 mg-240 mg tablet,extended [id number] 1 tab PO DAILY 01/28/17 [History Last Taken Unknown] nitroglycerin 0.3 mg sublingual tablet 0.3 mg SL PRN PRN Cardiac/Chest Pain 01/28/17 [History Last Taken Unknown] clopidogrel 75 mg tablet 75 mg PO DAILY 09/05/19 [History Last Taken Unknown] ezetimibe 10 mg tablet 10 mg PO DAILY 09/05/19 [History Last Taken Unknown] metformin 500 mg tablet 500 mg PO DAILY 09/05/19 [History Last Taken Unknown] ciprofloxacin HCl 500 mg tablet (Cipro) 500 mg PO BID #6 tabs 11/30/21 [Rx Last Taken Unknown] Allergy/AdvReac Type Severity Reaction Status Date / Time Mrxsfov-Exc-Qro Reductase AdvReac Other Verified 11/30/21 13:14 Inhibitor Family History Other Heart disease Surgical History (Updated 11/30/21 @ 13:50 by Norberto Cope) H/O heart artery stent History of cholecystectomy Social History Smoking Status: Former smoker alcohol intake: current alcohol intake frequency: 0-2 drinks per day Alcohol type: wine ROS ROS ED Constitutional Constitutional ED: Denies chills or fever(s) Eyes Eyes: Denies change in vision or discharge from eye(s) ENT ENT ED: Denies discharge from eye(s), rhinorrhea or sore throat Cardiovascular Cardiovascular: Denies chest pain or palpitations Respiratory/Chest Respiratory/Chest: Reports dyspnea; Denies cough Gastrointestinal Gastrointestinal: Reports abdominal pain, constipation and nausea; Denies diarrhea or vomiting Genitourinary Genitourinary ED: Reports difficulty urinating and urinary frequency; Denies dysuria Musculoskeletal Musculoskeletal: Reports other Details: Joint aches and pains ; Denies back pain Integumentary Denies Abrasions or rash Neurologic Neurologic: Denies headache(s) or weakness Allergic/Immunologic Allergic/Immunologic ED: Denies lip swelling or urticaria EXAM Physical Exam Const Vital Signs: 11/30/21 13:14 11/30/21 13:48 11/30/21 15:26 Temperature 98.8 F Temperature Source Temporal Pulse Rate 120 H 116 H 112 H Respiratory Rate 18 20 H 18 Blood Pressure 157/115 H 138/85 H 137/88 H Blood Pressure Mean 129 102 104 Pulse Ox 100 97 94 Oxygen Delivery Method Room Air Room Air Room Air Positive well nourished and well developed General Appearance ED: well developed HEENT Reports normocephalic and head/scalp atraumatic Eyes PERRL and EOMs intact bilaterally Neck supple Chest Wall inspection of chest normal and palpation of chest normal Resp normal respiratory effort and clear to auscultation bilaterally Cardio regular rhythm Rate: tachycardic GI Palpation: soft and tender epigastric Back/Spine no CVA tenderness Extremity normal to inspection Neuro oriented x3 Sensorium / Orientation: alert Psych mental status grossly normal Skin no rashes or lesions noted MDM MDM MDM Narrative Medical decision making narrative: EKG and chest x-ray obtained. Lab work and urinalysis ordered. Post void residual obtained. Lab Data Attestation: I reviewed the patient's lab results. Labs: Laboratory Results - last 24 hr 11/30/21 11/30/21 11/30/21 13:40 13:45 13:45 WBC 15.5 H RBC 5.27 Hgb 15.3 Hct 46.5 MCV 88.2 MCH 29.0 MCHC 32.9 RDW Std Deviation 43.6 RDW Coeff of Mirian 13.5 Plt Count 176 MPV 10.8 Immature Gran % (Auto) 0.600 Neut % (Auto) 88.8 H Lymph % (Auto) 7.4 L [place] % (Auto) 2.8 Eos % (Auto) 0.1 Baso % (Auto) 0.3 Absolute Neuts (auto) 13.7 H Absolute Lymphs (auto) 1.15 Nucleated RBC % 0 Sodium 139 Potassium 4.0 Chloride 105 Carbon Dioxide 26.0 Anion Gap 8 BUN 10 Creatinine 1.00 Estim Creat Clear Calc 75.30 Est GFR (MDRD) Af Amer 96 Est GFR (MDRD) Non-Af 79 BUN/Creatinine Ratio 10.0 Glucose 146 H Calcium 8.8 Total Bilirubin 0.80 Direct Bilirubin 0.28 AST 13 L ALT 32 Alkaline Phosphatase 74 Troponin I High Sens 5 Total Protein 7.0 Albumin 3.5 Globulin 3.5 Lipase 61 L Urine Color Yellow Urine Clarity Sl. Cloudy Urine pH 6.0 Ur Specific [place] 1.020 Urine Protein 30 H Urine Glucose (UA) Normal Urine Ketones Negative Urine Occult Blood 250 H Urine Nitrite Negative Urine Bilirubin Negative Urine Urobilinogen Normal Ur Leukocyte Esterase 500 H Urine RBC 10-25 SEEN Urine WBC 50-100 SEEN Ur Squamous Epith Cells 0 SEEN Urine Bacteria 2+ Urine Mucus 0 SEEN Radiography Diagnostic Testing: Clinical Impression(s) from Imaging Studies Chest X-Ray 11/30/21 13:58 IMPRESSION: No acute cardiopulmonary process identified. Electronically Signed: Cecelia Corona MD at 14:39 EDT , EKG Initial EKG: Attestation: I personally reviewed and interpreted this EKG as follows: Interpretation: Sinus Tachycardia (Sinus tach at 117 with a right bundle branch block. No acute ischemia.) Treatment and Re-Evaluation Narrative: CBC reveals a white count of 15.5 with left shift. Chemistry studies unremarkable with normal renal function. LFTs and lipase normal. Urinalysis does show infection with 50-100 white cells with 2+ bacteria. Blood and urine cultures are obtained. Patient is given a dose of IV Rocephin. Chest x-ray per my interpretation reveals no acute findings. On repeat evaluation patient does feel improved. He is tolerating p.o. without difficulty. He will be discharged with a prescription for Cipro. He was advised that if his urine or blood cultures return positive he may receive a phone call for change of treatment. Return instructions are provided. Discharge Plan Triage Chief Complaint: Abd Pain ED Provider: Tiffanie Loredo Dx/Rx/DC Orders Clinical Impression: UTI (urinary tract infection) Instructions: ED Bladder Infection, Male (Adult) Prescriptions: New ciprofloxacin HCl [Cipro] 500 mg tablet 500 mg PO BID Qty: 6 0RF No Action omeprazole 40 MG capsule 40 mg PO DAILY tamsulosin 0.4 MG capsule 0.4 mg PO DAILY metoprolol tartrate 25 MG tablet 12.5 mg PO BID pitavastatin calcium 1 MG tablet 1 mg PO DAILY aspirin 81 MG tablet,chewable 81 mg PO DAILY@0800 nitroglycerin 0.3 MG tablet, sublingual 0.3 mg SL PRN PRN (Reason: Cardiac/Chest Pain) loratadine-pseudoephedrine 1 TABLET tablet 1 tab PO DAILY fluticasone propionate 1 SPRAY spray,suspension 2 spray NASAL DAILY metformin 500 MG tablet 500 mg PO DAILY clopidogrel 75 MG tablet 75 mg PO DAILY ezetimibe 10 MG tablet 10 mg PO DAILY Primary Care Provider: Fidel Cronin Referrals: Fidel Cronin MD [Primary Care Provider] - 1 Week Disposition Disposition: Home, Self Care
[2021-11-30 13:46] LABS: Mucous, Urine 0 SEEN /hpf (<or=2+); Squamous Epithelial Cells - UA 0 SEEN /hpf (0-5)
[2021-11-30 13:48] VITALS: BP 138/85; PULSE 116; RESP 20; O2SAT 97
[2021-11-30 13:56] LABS: Color, Urine Yellow (Yellow); Glucose, Dipstick Normal (Normal); Ketone-Dipstick Negative (Negative); Leukocyte Esterase-Dipstick 500 /ul (Negative); Nitrite-Dipstick Negative (Negative); Occult Blood-Urine 250 /ul (Negative); Protein-Dipstick 30 mg/dl (Negative); Urine Bilirubin Dipstick Negative (Negative); Urine Clarity Sl. Cloudy (Clear); Urine Urobilinogen Normal (Normal)
[2021-11-30 13:57] LABS: Absolute Lymphocyte Count 1.15 X10^3/uL (0.83-4.51); Absolute Neutrophil Count 13.7 X10^3/uL (2.0-7.7); Basophil# 0.05 X10^3/uL; Basophil% 0.3 % (0-1); Eosinophil# 0.02 X10^3/uL; Eosinophils% 0.1 % (0-5); Hematocrit 46.5 % (40-54); Hemoglobin 15.3 g/dL (13.0-16.5); Lymphocyte # 1.15 X10^3/ul (0.83-4.51); Lymphocyte % 7.4 % (19-41); Mean Corp Hgb Conc 32.9 g/dL (32-36); Mean Corpuscular Volume 88.2 fL (80-94); Mean Platelet Vol. 10.8 fl (6.2-12.0); Monocyte# 0.44 X10^3/uL; Monocyte% 2.8 % (0-10); NRBC Flagged by Analyzer 0 % (0-5); Neutrophil # 13.71 X10^3/uL (2.7-7.7); Neutrophil % 88.8 % (47-70); Platelet Count 176 K/mm3 (150-450); RBC Distribution Width CV 13.5 % (11.6-14.6); RBC Distribution Width SD 43.6 fl (35.1-43.9); Red Blood Count 5.27 M/mm3 (4.6-6.2); White Blood Count 15.5 K/mm3 (4.4-11.0)
--- NOTE | 2021-11-30 13:58 | RAD_ITS ---
HISTORY: sob. TECHNIQUE: XR Chest 1 View. COMPARISON: 08/17/2015. FINDINGS: CARDIOMEDIASTINAL BORDERS: Cardiac silhouette within normal limits in size. Unchanged mild tortuosity and calcification of the aorta. LUNGS: Radiographically clear. PLEURA: No pleural effusion or pneumothorax seen. OSSEOUS STRUCTURES: Degenerative change. RAD/Chest 1 View (Portable) IMPRESSION: No acute cardiopulmonary process identified. Electronically Signed: Cecelia Corona MD at 14:39 EDT ,
[2021-11-30] MEDS: Morphine 4 MG/ML Syringe IV (14:10)
[2021-11-30] MEDS: Ondansetron 4 MG/2 ML Vial IV (14:10)
[2021-11-30 14:13] LABS: Red Blood Cells-Urine 10-25 SEEN /hpf (0-5); White Blood Cells 50-100 SEEN /hpf (0-5)
[2021-11-30 14:14] LABS: Bacteria 2+ /hpf (None Seen)
[2021-11-30 14:17] LABS: AST(SGOT) 13 U/L (15-37); Alanine Aminotransfer ALT/SGPT 32 U/L (16-61); Albumin, Serum 3.5 g/dL (3.2-5.0); Alkaline Phosphatase 74 U/L (45-117); Anion Gap 8 (5-15); BUN 10 mg/dL (7-18); Bilirubin, Direct 0.28 mg/dL (0.00-0.30); Calcium,Total 8.8 mg/dL (8.5-10.1); Chloride 105 mmol/L (98-107); EST Glomerular Filtration Rate 79 mL/min (>60); Est Glom Filt Rate - Afr Amer 96 mL/min (>60); Globulin 3.5 g/dL (2.2-4.2); Glucose 146 mg/dL (74-106); Lipase 61 U/L (73-393); Sodium Level 139 mmol/L (136-145); Troponin-I HS (w/2H Reflex) 5 pg/mL (3.0-78.0)
[2021-11-30] MEDS: Ceftriaxone 1 GM/50 ML BAG IV (15:25)
[2021-11-30 15:26] VITALS: BP 137/88; PULSE 112; RESP 18; O2SAT 94
[2021-11-30 15:51] LABS: Reflex Troponin-HS? (from REC) Y
[2021-11-30 16:28] LABS: Troponin-I HS 7 pg/mL (3.0-78.0)
[2021-11-30 16:29] VITALS: BP 131/75; PULSE 106; RESP 20; O2SAT 93
== END 2021-11-30 16:45 | disposition home or self-care (01) ==
PROVIDERS: Emergency Provider Emergency Medicine; PCP Internal Medicine; Visit Provider Emergency Medicine
DX: N39.0 Urinary tract infection, site not specified (principal); Z87.891 Personal history of nicotine dependence
CPT/HCPCS: 71045; 80048; 80076; 81001; 83690; 84484; 85025; 87040; 87086; 87088; 87186; 93005; 96365; 96375; 99283; J7030; A4216; J2405

== ENCOUNTER 2021-12-14 21:48 | Emergency (ER) | payer MEDICARE, SELFPAY ==
[2021-12-14 21:52] VITALS: BP 153/87; PULSE 79; RESP 16; TEMP 36.7; O2SAT 98; BMI 34.9
--- NOTE | 2021-12-14 22:20 | CT_ITS ---
STUDY: CT ABDOMEN AND PELVIS WITHOUT CONTRAST REASON FOR EXAM: Male, 66 years old. left flank pain RADIATION DOSAGE (If Supplied By Facility): CTDIvol = ( 19.84 ) mGy, DLP = ( 1140.24 ) mGycm TECHNIQUE: Transaxial images were obtained from the dome of the diaphragm to the symphysis pubis without oral contrast, and without intravenous contrast. Sagittal and coronal images were reconstructed. Individualized dose optimization techniques were used for this CT. COMPARISON: None. FINDINGS: The visualized lung bases are unremarkable. The visualized portions of the heart are within normal limits. There is decreased attenuation of the liver consistent with steatosis. There are surgical clips in the gallbladder fossa consistent with a prior cholecystectomy. Small amount of pneumobilia. Normal spleen. Normal pancreas. Normal bilateral adrenal glands. Horseshoe kidney is noted. Mild bilateral hydroureter. Normal visualized stomach. Normal small intestine. There are multiple colonic diverticula consistent with diverticulosis. The appendix is visualized and appears normal. Normal abdominal aorta. Normal inferior vena cava. Normal retroperitoneum. Under distended urinary bladder with surrounding inflammation and edema suggesting acute cystits. There are prostatic calcifications. There is a small umbilical hernia containing fat. There are diffuse degenerative changes of the visualized lumbar spine. CT/Abdomen/Pelvis without Cont IMPRESSION: Horseshoe kidney is noted. Mild bilateral hydroureter with suspected acute cystitis of the urinary bladder. Recommend clinical correlation. Electronically Signed: Joao Younger DO at 0:03 EDT ,
--- NOTE | 2021-12-14 22:24 | EX.ED.GUMALE ---
HPI History of Present Illness Chief Complaint: Complaint Detail of Chief Complaint: Left flank pain and dysuria Informant: patient Narrative Narrative: Patient presents to the emergency department chief complaint of left-sided flank pain today. Patient also complains of dysuria and hematuria. Patient states that he was seen in the emergency department about 2 weeks ago and diagnosed and treated for urinary tract infection. Patient also states that he had a ultrasound that showed some cysts in his kidneys. Patient states that his flank pain is currently improved. He denies any fevers. He denies nausea or vomiting. No history of kidney stones. Prior similar symptoms: Yes [facility] Medical History (Updated 12/14/21 @ 23:[address] Manfred Montes, DO) Hay fever Heart attack Heart disease Hemorrhoids HTN (hypertension) Knee pain Pancreatitis Shoulder pain Home Medications aspirin 81 mg chewable tablet 81 mg PO DAILY@0800 08/17/15 [History Last Taken Unknown] metoprolol tartrate 25 mg tablet 12.5 mg PO BID 08/17/15 [History Last Taken Unknown] omeprazole 40 mg capsule,delayed release 40 mg PO DAILY 08/17/15 [History Last Taken Unknown] pitavastatin calcium 1 mg tablet 1 mg PO DAILY 08/17/15 [History Last Taken Unknown] tamsulosin 0.4 mg capsule 0.4 mg PO DAILY 08/17/15 [History Last Taken Unknown] fluticasone propionate 50 mcg/actuation nasal spray,suspension 2 spray NASAL DAILY 01/28/17 [History Last Taken Unknown] loratadine-pseudoephedrine ER 10 mg-240 mg tablet,extended [id number] 1 tab PO DAILY 01/28/17 [History Last Taken Unknown] nitroglycerin 0.3 mg sublingual tablet 0.3 mg SL PRN PRN Cardiac/Chest Pain 01/28/17 [History Last Taken Unknown] clopidogrel 75 mg tablet 75 mg PO DAILY 09/05/19 [History Last Taken Unknown] ezetimibe 10 mg tablet 10 mg PO DAILY 09/05/19 [History Last Taken Unknown] metformin 500 mg tablet 500 mg PO DAILY 09/05/19 [History Last Taken Unknown] ciprofloxacin HCl 500 mg tablet (Cipro) 500 mg PO BID #6 tabs 11/30/21 [Rx Last Taken Unknown] phenazopyridine 200 mg tablet (Pyridium) 200 mg PO TID 6 doses #6 tabs 12/14/21 [Rx Last Taken Unknown] sulfamethoxazole 800 mg-trimethoprim 160 mg tablet 1 tab PO BID #14 TABLETS 12/14/21 [Rx Last Taken Unknown] Allergy/AdvReac Type Severity Reaction Status Date / Time [id number] Reductase AdvReac Other Verified 12/14/21 21:55 Inhibitor [Qlayhpi-Gza-Mwq Reductase Inhibitor] Family History Other Heart disease Surgical History H/O heart artery stent History of cholecystectomy Social History Smoking Status: Former smoker alcohol intake: current alcohol intake frequency: 0-2 drinks per day Alcohol type: wine ROS ROS ED Review of Systems ROS Unobtainable: other Constitutional Constitutional ED: Reports lethargy; Denies chills, fever(s), sweats or weight loss Eyes Eyes: Denies blurry vision, change in vision or diplopia ENT ENT ED: Denies rhinorrhea or sore throat Cardiovascular Cardiovascular: Reports chest pain and racing heartbeat; Denies orthopnea Respiratory/Chest Respiratory/Chest: Reports dyspnea and dyspnea on exertion; Denies cough, orthopnea or sputum Gastrointestinal Gastrointestinal: Denies abdominal pain, diarrhea, nausea or vomiting Genitourinary Genitourinary ED: Reports dysuria, hematuria and urinary frequency Musculoskeletal Musculoskeletal: Reports back pain; Denies arthralgias, myalgias or neck pain Integumentary Denies abscess, Abrasions or rash Neurologic Neurologic: Denies headache(s) or weakness Psychiatric Psychiatric: Denies anxiety, depression or suicidal thoughts Endocrine Endocrinology: Denies polydipsia, polyphagia or polyuria Hematologic/Lymphatic Hematologic/Lymphatic: Denies easy bleeding, easy bruising or lymphadenopathy Allergic/Immunologic Allergic/Immunologic ED: Denies mouth swelling, tongue swelling or urticaria EXAM Physical Exam Const Vital Signs: 12/14/21 21:52 Temperature 98.0 F Temperature Source Oral Pulse Rate 79 Respiratory Rate 16 Blood Pressure 153/87 H Blood Pressure Mean 109 Pulse Ox 98 Oxygen Delivery Method Room Air Positive well nourished and well developed General Appearance ED: well developed and NAD HEENT Reports TM's clear and moist mucous membranes normocephalic and atraumatic; Negative for trauma or tenderness Tympanic Membrane ED: Yes TM's clear Eyes PERRL and EOMs intact bilaterally General Eye ED: Negative for pale conjunctiva or scleral icterus Neck no lymphadenopathy, supple and no JVD General: Negative for tenderness Chest Wall inspection of chest normal and palpation of chest normal Chest: Negative for tenderness Resp normal respiratory effort and clear to auscultation bilaterally Effort and Inspection: Negative for respiratory distress or pain with movement Auscultation: Negative for rhonchi, wheezes or diminished lung sounds Cardio regular rate, regular rhythm, S1 normal heart sound, S2 normal heart sound and no murmurs Peripheral Pulses: pulses 2+ throughout GI normal to inspection, nondistended, normoactive bowel sounds, soft to palpation, non-distended and no masses GI Narrative: Mild suprapubic tenderness on palpation. There is no rebound, rigidity, or peritoneal signs. Patient has mild CVA tenderness on the left. Back/Spine no CVA tenderness and no thoracic nor lumbar tenderness Extremity normal to inspection General Extremety ED: Negative for edema General Extremity: Negative for edema Neuro oriented x3, CN's II-XII intact bilaterally, no sensory deficits noted and gait normal Sensorium / Orientation: awake, alert, oriented to person, oriented to place and oriented to time Motor Exam: strength 5/5 throughout and strength abnormal Psych mental status grossly normal Skin no rashes or lesions noted and no wounds MDM MDM MDM Narrative Medical decision making narrative: IV line established on arrival. Patient did not want thing for pain. Patient had an elevated white count of 14.6. Chemistries unremarkable. Urinalysis was positive for nitrites as well as 500 leukocyte esterase and greater than 100 WBCs and +1 bacteria. Urine was sent for culture. Patient started on Rocephin and Zithromax. CT scan was ordered to rule out kidney stone with infection. Results pending from radiology. Case turned over to evening physician awaiting CT results. If no evidence of kidney stone I feel patient can be discharged to home with antibiotics. We will also start him on Pyridium. Patient advised to return if worsening pain, fever, vomiting, or condition worsen anyway. Lab Data Attestation: I reviewed the patient's lab results. Labs: Laboratory Results - last 24 hr 12/14/21 12/14/21 12/14/21 22:09 22:38 22:38 WBC 14.6 H RBC 5.22 Hgb 15.2 Hct 47.1 MCV 90.2 MCH 29.1 MCHC 32.3 RDW Std Deviation 45.0 H RDW Coeff of Mirian 13.5 Plt Count 254 MPV 10.3 Immature Gran % (Auto) 0.300 Neut % (Auto) 72.6 H Lymph % (Auto) 16.6 L [place] % (Auto) 8.3 Eos % (Auto) 1.6 Baso % (Auto) 0.6 Absolute Neuts (auto) 10.6 H Absolute Lymphs (auto) 2.43 Nucleated RBC % 0 Sodium 141 Potassium 4.3 Chloride 111 H Carbon Dioxide 26.0 Anion Gap 4 L BUN 12 Creatinine 0.88 Estim Creat Clear Calc 85.57 Est GFR (MDRD) Af Amer 110 Est GFR (MDRD) Non-Af 91 BUN/Creatinine Ratio 13.6 Glucose 112 H Calcium 9.0 Urine Color Yellow Urine Clarity Cloudy Urine pH 6.0 Ur Specific [place] 1.010 Urine Protein 100 H Urine Glucose (UA) Normal Urine Ketones Negative Urine Occult Blood 250 H Urine Nitrite Positive H Urine Bilirubin Negative Urine Urobilinogen Normal Ur Leukocyte Esterase 500 H Urine RBC > 100 SEEN Urine WBC >100 SEEN Ur Squamous Epith Cells 0 SEEN Urine Bacteria 1+ Urine Mucus 0 SEEN Discharge Plan Triage Chief Complaint: Complaint ED Provider: Manfred Montes Dx/Rx/DC Orders Clinical Impression: Acute UTI, Acute flank pain Instructions: ED Flank Pain, Uncertain Cause, ED Bladder Infection, Male (Adult) Prescriptions: New sulfamethoxazole-trimethoprim [sulfamethoxazole-trimethoprim] 1 TABLET tablet 1 tab PO BID Qty: 14 0RF phenazopyridine [Pyridium] 200 mg tablet 200 mg PO TID Qty: 6 0RF No Action omeprazole 40 MG capsule 40 mg PO DAILY tamsulosin 0.4 MG capsule 0.4 mg PO DAILY metoprolol tartrate 25 MG tablet 12.5 mg PO BID pitavastatin calcium 1 MG tablet 1 mg PO DAILY aspirin 81 MG tablet,chewable 81 mg PO DAILY@0800 nitroglycerin 0.3 MG tablet, sublingual 0.3 mg SL PRN PRN (Reason: Cardiac/Chest Pain) loratadine-pseudoephedrine 1 TABLET tablet 1 tab PO DAILY fluticasone propionate 1 SPRAY spray,suspension 2 spray NASAL DAILY metformin 500 MG tablet 500 mg PO DAILY clopidogrel 75 MG tablet 75 mg PO DAILY ezetimibe 10 MG tablet 10 mg PO DAILY ciprofloxacin HCl [Cipro] 500 mg tablet 500 mg PO BID Qty: 6 0RF Primary Care Provider: Fidel Cronin Referrals: Fidel Cronin MD [Primary Care Provider] - 3-5 Days Disposition Disposition: Home, Self Care
[2021-12-14 22:38] LABS: Mucous, Urine 0 SEEN /hpf (<or=2+); Squamous Epithelial Cells - UA 0 SEEN /hpf (0-5)
[2021-12-14] MEDS: 0.9% Normal Saline 1,000 ML 150 ML IV (22:41)
[2021-12-14 22:42] LABS: Color, Urine Yellow (Yellow); Glucose, Dipstick Normal (Normal); Ketone-Dipstick Negative (Negative); Leukocyte Esterase-Dipstick 500 /ul (Negative); Nitrite-Dipstick Positive (Negative); Occult Blood-Urine 250 /ul (Negative); Protein-Dipstick 100 mg/dl (Negative); Urine Bilirubin Dipstick Negative (Negative); Urine Clarity Cloudy (Clear); Urine Urobilinogen Normal (Normal)
[2021-12-14 22:48] LABS: Absolute Lymphocyte Count 2.43 X10^3/uL (0.83-4.51); Absolute Neutrophil Count 10.6 X10^3/uL (2.0-7.7); Basophil# 0.09 X10^3/uL; Basophil% 0.6 % (0-1); Eosinophil# 0.24 X10^3/uL; Eosinophils% 1.6 % (0-5); Hematocrit 47.1 % (40-54); Hemoglobin 15.2 g/dL (13.0-16.5); Lymphocyte # 2.43 X10^3/ul (0.83-4.51); Lymphocyte % 16.6 % (19-41); Mean Corp Hgb Conc 32.3 g/dL (32-36); Mean Corpuscular Hgb 29.1 pg (27.0-32.0); Mean Corpuscular Volume 90.2 fL (80-94); Mean Platelet Vol. 10.3 fl (6.2-12.0); Monocyte# 1.21 X10^3/uL; Monocyte% 8.3 % (0-10); NRBC Flagged by Analyzer 0 % (0-5); Neutrophil # 10.62 X10^3/uL (2.7-7.7); Neutrophil % 72.6 % (47-70); Platelet Count 254 K/mm3 (150-450); RBC Distribution Width CV 13.5 % (11.6-14.6); Red Blood Count 5.22 M/mm3 (4.6-6.2); White Blood Count 14.6 K/mm3 (4.4-11.0)
[2021-12-14 23:01] LABS: Anion Gap 4 (5-15); BUN 12 mg/dL (7-18); BUN/Creat Ratio 13.6 RATIO (10-20); Chloride 111 mmol/L (98-107); Creatinine, Serum 0.88 mg/dL (0.70-1.30); EST Glomerular Filtration Rate 91 mL/min (>60); Est Glom Filt Rate - Afr Amer 110 mL/min (>60); Estimated Creatinine Clearance 85.57 ml/min; Glucose 112 mg/dL (74-106); Potassium 4.3 mmol/L (3.5-5.1); Sodium Level 141 mmol/L (136-145)
[2021-12-14 23:03] LABS: Bacteria 1+ /hpf (None Seen); Red Blood Cells-Urine > 100 SEEN /hpf (0-5); White Blood Cells >100 SEEN /hpf (0-5)
[2021-12-14] MEDS: Phenazopyridine 95 MG Tablet 190 MG PO (23:28)
[2021-12-14] MEDS: Ceftriaxone 1 GM/50 ML BAG IV (23:28)
[2021-12-15 00:18] VITALS: BP 133/84; PULSE 72; RESP 16; O2SAT 96
== END 2021-12-15 00:40 | disposition home or self-care (01) ==
PROVIDERS: Emergency Provider Emergency Medicine; PCP Internal Medicine; Visit Provider Emergency Medicine
DX: N39.0 Urinary tract infection, site not specified (principal); R10.9 Unspecified abdominal pain; Z87.891 Personal history of nicotine dependence
CPT/HCPCS: 74176; 80048; 81001; 85025; 96365; 99284; J7030